=== PATIENT | female | born 1950 | race Caucasian/White ===

== ENCOUNTER 2017-06-01 10:01 | Emergency (ER) | payer OTHER ==
[~2017-06-01] VITALS: Ht 160 cm; Wt 70.7 kg
[~2017-06-01 10:01] MED LIST: ALBUAER19 INH; DPKEC250 PO; HYDR25TA4 PO; LAMO200T PO; [UNRECOGNIZED DRUG - CODE] PO
[2017-06-01 10:09] VITALS: TEMP 36.5; Ht 160 cm; Wt 70.7 kg
[2017-06-01] MEDS ORDERED: OXYCODONE HCL IR 5 MG TAB (IMMEDIATE RELEASE) PO STA (10:22)
--- NOTE | 2017-06-01 10:31 | EMERGENCY ROOM VISIT NOTE ---
ED Visit Note First contact with patient: 10:29 The patient was seen and examined with Elvia Plata PA-C. I agree with the history, physical and findings. Please see the note for disposition and details.
--- NOTE | 2017-06-01 11:09 | EMERGENCY ROOM VISIT NOTE ---
ED Visit Note First contact with patient: 10:13 CHIEF COMPLAINT: Right shoulder fracture HISTORY OF PRESENT ILLNESS: This 66-year-old female presents to the ER being sent here by Dasia bruno for a right shoulder fracture. The patient was sent here stating [facility] her [facility]. The patient states that they gave her a pierced reduction for pain medication. She also was placed in a sling. The patient denies any nose and tingling in her fingers. She admits to pain right over the shoulder joint. The patient states that she fell last evening when she tripped on her flip flop and landed onto her right shoulder. The patient denies any other injuries. The patient has seen Dr. Alvino grove in the past for other orthopedic needs. REVIEW OF SYSTEMS: 6 system review was performed and was negative unless stated otherwise in history of present illness. PMH: Tremor secondary to bipolar medication, fractured right ankle, femur surgery, lumpectomy of the right breast, bipolar disorder SOCIAL HISTORY: Patient lives with her . Non-smoker, no excessive alcohol use. PHYSICAL EXAM: Vital Signs: Were reviewed Reviewed nurse's notes. GENERAL: 66- year-old white female appears uncomfortable secondary to shoulder pain. She has her right arm in a sling. MENTAL Status: Alert and oriented 3. RIGHT shoulder: The shoulder is slightly swollen but not deformed on inspection. Range of motion was not assessed due to the known fracture. There is no tenderness of the distal clavicle. The patient is able to move her fingers without difficulty. Right radial pulses 2+. EMERGENCY DEPARTMENT COURSE: The patient was evaluated by myself and independently byDr. Gomes. The patient was given OxyIR 5 mg by mouth for pain. She is also given an ice pack. The x-ray was reviewed in the PACS system. This revealed an impacted fracture of the surgical neck. I consulted Dr. Ch about the patient. He stated, treatment with the sling and pain medications is adequate. He stated that she should call [facility] orthopedics on Saturday morning for follow-up appointment since she is already established with that practice. The patient was informed of treatment plan and was happy. The patient was discharged home in stable condition. DIAGNOSIS: Right Humeral fracture - surgical neck DISCHARGE INSTRUCTIONS & TREATMENT: Rest the arm in a shoulder immobilizer at all times until seeing the orthopedic surgeon. Apply ice to the shoulder intermittently and frequently over the next 24 hours. Take pain medication as prescribed by Dasia as directed. Call [facility] orthopedics on Saturday morning for follow-up appointment. Current/Historical Medications Scheduled Albuterol Inhaler (Ventolin Inhaler), 2 PUFFS INH Q6HR PRN Divalproex Sodium Delay Rel (Depakote Delay Rel *), 125 MG PO QPM Divalproex Sodium Delay Rel (Depakote Delay Rel *), 250 MG PO BID Hydrochlorothiazide (Hctz), 25 MG PO DAILY Lamotrigine (Lamictal), 200 MG PO BID Allergies Coded Allergies: No Known Allergies (Verified , 01/10/12) Vital Signs Date Time Temp Pulse Resp B/P (MAP) Pulse Ox O2 Delivery O2 Flow Rate FiO2 06/01/17 10:09 36.5 101 20 134/86 99 Room Air Medications Administered Medications (Trade) Dose Ordered Sig/Lavelle Route Start Time Stop Time Status Last Admin Dose Admin Oxycodone HCl (Roxicodone Immediate Rel Tab) 5 mg NOW STAT PO 06/01/17 10:22 06/01/17 10:24 DC 06/01/17 10:32 5 MG Departure Information Referrals Jake Nguyễn III, M.D. (PCP) Patient Instructions My [facility]
[2017-06-01 11:29] VITALS: BP 132/82; PULSE 78; O2SAT 98
== END 2017-06-01 11:30 | disposition home or self-care (01) ==
LOC: C.EDC 10:24
DX: S42.214A Unspecified nondisplaced fracture of surgical neck of right humerus, initial encounter for closed fracture (principal); F31.9 Bipolar disorder, unspecified; Z79.899 Other long term (current) drug therapy; Z87.828 Personal history of other (healed) physical injury and trauma; W01.0XXA Fall on same level from slipping, tripping and stumbling without subsequent striking against object, initial encounter

== ENCOUNTER 2022-10-11 10:54 | Inpatient (IN) ==
[2022-10-11] MEDS ORDERED: ALBUT/IPRATROP 3MG/0.5MG NEB 3 ML VIAL NEB STA (11:07)
--- NOTE | 2022-10-11 11:18 | XRay Report ---
XR chest 1V portable HISTORY: Dyspnea COMPARISON: Chest 01/12/2012. FINDINGS: No pneumothorax. No pleural effusions. The cardiac silhouette is normal in size. Small line ar scarlike density within the left midlung zone. Questionable nodular density within the right midlu ng zone is likely due to the overlapping ribs. No focal lung consolidations to suggest a pneumonia. N o evidence for pulmonary edema. Degenerative changes within the shoulders, right greater than left. O ld, healed right-sided rib fractures. IMPRESSION: 1. No acute process within the chest. 2. Questionable right midlung zone nodular density is likely due to the overlapping ribs. This will b e better assessed on the same day chest CTA. ACT 112: Negative or not required by law. Electronically signed by: Ulises Leigh M.D. 10/11/2022 11:17 AM
--- NOTE | 2022-10-11 11:25 | Emergency Department Note ---
Impression & Plan Bilateral pulmonary embolism, Elevated troponin, Hypoxia, Acute electrocardiogram changes ED Provider Note NAME: PETRONA KATZ AGE: 71 SEX: F : 1950 ARRIVES VIA: Ambulance INFORMANT: [Patient][nursing] ED PROVIDER(S): [Eder Sam MD] CHIEF COMPLAINT: Shortness of breath HISTORY OF PRESENT ILLNESS: The patient is a 71-year-old female who states that for 2 days, she has felt short of breath mostly with exertion but even sometimes at rest. The patient states that things started suddenly for her 2 days ago when she was walking. She did have a little bit of a cough this morning. There has been no fever, she has no lung disease and she no longer smokes, she quit smoking around 15 years ago. The patient denies any chest pain. No chills. She went to [facility] and there, was felt in need of transfer to the ED for further work-up. The patient has never had a PE or DVT. She has had phlebitis though in the past. No recent long trips by car plane or train, she has no cancer diagnosis. PMHx/PSHx: See Below SOCIAL HISTORY: See Below. PHYSICAL EXAM: GENERAL: Patient is in no acute distress. HEENT: No acute trauma, normocephalic atraumatic, mucous membranes moist, no nasal congestion. NECK: No stridor, no adenopathy, no meningismus, trachea is midline. LUNGS: Patient's breath sounds are diminished bilaterally. There are crackles in the lower lung mon[place] bilaterally, no wheezing. HEART: Without murmurs gallops or rubs, regular rate and rhythm. ABDOMEN: Soft, nontender, bowel sounds positive, no peritonitis. EXTREMITIES: No cyanosis or edema, full range of motion of all the joints without pain or difficulty, no signs for acute trauma. NEUROLOGIC: Oriented x 3, no acute motor or sensory deficits, no focal weakness. SKIN: No rash, no jaundice, no diaphoresis. DIFFERENTIAL DIAGNOSIS: PE, CHF, pneumonia, bronchitis, COVID-19, influenza, RSV, anemia, LA, among others. EMERGENCY DEPARTMENT COURSE/PROCEDURES: Prior/Outside records reviewed: Outside outpatient provider notes. ECG per my interpretation: Indication was shortness of breath. The ECG shows a normal sinus rhythm with a rate of 93. There are some T wave inversions in the lateral leads and some ST depression laterally. There is a potential old inferior infarct seen. I do see some subtle ST elevation in lead III however, this seemed secondary to a deep R wave. QTc was 492. No PVCs. Compared to an ECG from 11 January 2012, the T wave changes laterally are new. Continuous Cardiac Monitoring per my interpretation: An order was placed for continuous cardiac monitoring. The monitor shows a rate of 97 with normal sinus rhythm. Critical Care Note: I have personally spent 56 minutes of critical care time in the direct management of this patient. This includes bedside care, interpretation of diagnostic studies, and testing, discussion with consultants, patient, and family members, and other required patient management activities. This 56 minutes is in excess of all separately billable procedures. MEDICAL DECISION MAKING: There is no leukocytosis or concerning anemia. There is a normal platelet count. No coagulopathy. Potassium was slightly low at 3. Creatinine was elevated somewhat at 1.85. The patient does have a history of renal insufficiency. Lactic acid level was elevated at 2.5, likely from her hypoxia. There was no concerning liver enzyme elevation. ECG showed a normal sinus rhythm without ST elevation. Some T wave inversions and ST depression was seen. These ECG changes were new. Troponin was elevated at around 1000, consistent with cardiac injury/strain. BNP was elevated at around 900, consistent with potential fluid overload. Chest x-ray did not show CHF, pneumonia or pneumothorax per my review. COVID, influenza and RSV test were negative. Chest CT shows massive bilateral pulmonary emboli, no saddle embolus. Right ventricular strain was seen. The patient was able to maintain her O2 saturation on a large amount of supplemental O2, around 6 liters. She was given a 500 cc saline bolus. She received a DuoNeb. She received IV potassium. I did consult Dr. Amato of the intensive care unit. He saw the patient here and the patient was ordered for IV tPA given the extent of the pulmonary embolus. The patient is aware of her findings, her family is aware. She is going to require a hospital stay and further care. She will be admitted to the ICU. I did speak with case management, the on-call hospitalist was consulted. DISPOSITION: The patient's presentation and findings warrant a hospital stay. Past Med/Surg History Medical History Bipolar 1 disorder CKD (chronic kidney disease) stage 3, GFR 30-59 ml/min Dyslipidemia Hypertension Prediabetes Surgical History H/O bone graft femur fx with bone graft and pin, age 16 H/O breast biopsy 1988; benign History of partial hysterectomy History of tonsillectomy Family History (Updated 10/11/22 @ 14:08 by Mouna Hillman PA-C) Other Hypertension Ovarian cancer Pancreatic cancer Social History Smoking Status: Former smoker Tobacco Type: Cigarettes Smoking End Date: 2009; Hx Alcohol Use: No Hx Substance Use: No Preferred Language: [place]an Communication Ability: Effective Radio Equipment Repairer Required: No Beliefs That Will Affect Care: None Current Living Situation: Spouse Feels Safe at Home: Yes Safety Concerns: Feels Safe At This Time Assistive Devices: Glasses Allergies Allergies Allergy/AdvReac Type Severity Reaction Status Date / Time No Known Allergies Allergy Unknown Verified 10/11/22 11:32 Home Meds Home Medications Medication Instructions Recorded Confirmed buspirone 15 mg tablet 15 mg PO TID 10/11/22 10/11/22 carvedilol 6.25 mg tablet 6.25 mg PO BID 10/11/22 10/11/22 diphenhydramine 12.5 1 tab PO DAILY PRN Pain 10/11/22 10/11/22 mg-acetaminophen 325 mg tablet (Percogesic) indapamide 2.5 mg tablet 2.5 mg PO DAILY 10/11/22 10/11/22 rosuvastatin 10 mg tablet 10 mg PO DAILY 10/11/22 10/11/22 Results & Data (ED) Vital Signs Vital Signs - 24 hr 10/11/22 10:59 10/11/22 10:59 10/11/22 10:59 Temperature 36.9 C Temperature Source Oral Pulse Rate 93 H Pulse Rate [Apical] 93 H Pulse Rate from SpO2 Sensor Pulse Rhythm Regular Pulse Rhythm [Apical] Regular Pulse Strength Normal Pulse Strength [Apical] Normal Respiratory Rate 20 20 Respiratory Effort / Characteristics Non-Labored Non-Labored Respiratory Depth Normal Normal Respiratory Pattern Regular Regular Blood Pressure 113/84 Blood Pressure [Right Arm] 113/84 Blood Pressure Mean 93 Blood Pressure Mean [Right Arm] 93 Blood Pressure Position Sitting Pulse Oximetry 86 L 87 L 89 L Oxygen Delivery Method Nasal Cannula Nasal Cannula Nasal Cannula Oxygen Flow Rate 5 6 6 Sepsis Recent Fever Within 48 Hours No Sepsis New/Unexplained Change in Mental Status N/A Sepsis Action Taken by Nursing No Action Required 10/11/22 11:04 10/11/22 11:00 10/11/22 11:01 Temperature Temperature Source Pulse Rate 93 H 89 93 H Pulse Rate [Apical] Pulse Rate from SpO2 Sensor 93 H Pulse Rhythm Regular Pulse Rhythm [Apical] Pulse Strength Pulse Strength [Apical] Respiratory Rate 25 H Respiratory Effort / Characteristics Respiratory Depth Respiratory Pattern Blood Pressure Blood Pressure [Right Arm] Blood Pressure Mean Blood Pressure Mean [Right Arm] Blood Pressure Position Pulse Oximetry 89 L 89 L Oxygen Delivery Method Nasal Cannula Nasal Cannula Oxygen Flow Rate 6 6 Sepsis Recent Fever Within 48 Hours Sepsis New/Unexplained Change in Mental Status Sepsis Action Taken by Nursing 10/11/22 11:10 10/11/22 11:20 10/11/22 11:30 Temperature Temperature Source Pulse Rate 91 H 90 90 Pulse Rate [Apical] Pulse Rate from SpO2 Sensor 90 90 Pulse Rhythm Pulse Rhythm [Apical] Pulse Strength Pulse Strength [Apical] Respiratory Rate 20 18 23 Respiratory Effort / Characteristics Respiratory Depth Respiratory Pattern Blood Pressure Blood Pressure [Right Arm] Blood Pressure Mean Blood Pressure Mean [Right Arm] Blood Pressure Position Pulse Oximetry 89 L 90 Oxygen Delivery Method Nasal Cannula Nasal Cannula Oxygen Flow Rate 6 6 Sepsis Recent Fever Within 48 Hours Sepsis New/Unexplained Change in Mental Status Sepsis Action Taken by Nursing 10/11/22 11:40 10/11/22 11:50 10/11/22 12:00 Temperature Temperature Source Pulse Rate 91 H 89 88 Pulse Rate [Apical] Pulse Rate from SpO2 Sensor 91 H 89 88 Pulse Rhythm Pulse Rhythm [Apical] Pulse Strength Pulse Strength [Apical] Respiratory Rate 24 24 19 Respiratory Effort / Characteristics Respiratory Depth Respiratory Pattern Blood Pressure Blood Pressure [Right Arm] Blood Pressure Mean Blood Pressure Mean [Right Arm] Blood Pressure Position Pulse Oximetry 91 89 L 89 L Oxygen Delivery Method Oxygen Flow Rate Sepsis Recent Fever Within 48 Hours Sepsis New/Unexplained Change in Mental Status Sepsis Action Taken by Nursing 10/11/22 12:10 10/11/22 12:19 10/11/22 12:19 Temperature Temperature Source Pulse Rate 90 89 Pulse Rate [Apical] Pulse Rate from SpO2 Sensor 90 89 Pulse Rhythm Pulse Rhythm [Apical] Pulse Strength Pulse Strength [Apical] Respiratory Rate 21 24 Respiratory Effort / Characteristics Respiratory Depth Respiratory Pattern Blood Pressure 102/76 Blood Pressure [Right Arm] Blood Pressure Mean 84 Blood Pressure Mean [Right Arm] Blood Pressure Position Pulse Oximetry 91 91 Oxygen Delivery Method Oxygen Flow Rate Sepsis Recent Fever Within 48 Hours Sepsis New/Unexplained Change in Mental Status Sepsis Action Taken by Nursing 10/11/22 12:20 10/11/22 12:54 10/11/22 12:56 Temperature Temperature Source Pulse Rate 89 87 86 Pulse Rate [Apical] Pulse Rate from SpO2 Sensor 92 H 86 Pulse Rhythm Pulse Rhythm [Apical] Pulse Strength Pulse Strength [Apical] Respiratory Rate 23 22 Respiratory Effort / Characteristics Respiratory Depth Respiratory Pattern Blood Pressure Blood Pressure [Right Arm] Blood Pressure Mean Blood Pressure Mean [Right Arm] Blood Pressure Position Pulse Oximetry 88 L 90 Oxygen Delivery Method Oxygen Flow Rate Sepsis Recent Fever Within 48 Hours Sepsis New/Unexplained Change in Mental Status Sepsis Action Taken by Nursing 10/11/22 12:56 10/11/22 13:00 10/11/22 13:00 Temperature Temperature Source Pulse Rate 85 Pulse Rate [Apical] Pulse Rate from SpO2 Sensor 85 Pulse Rhythm Pulse Rhythm [Apical] Pulse Strength Pulse Strength [Apical] Respiratory Rate 24 Respiratory Effort / Characteristics Respiratory Depth Respiratory Pattern Blood Pressure 96/68 L 114/69 Blood Pressure [Right Arm] Blood Pressure Mean 77 84 Blood Pressure Mean [Right Arm] Blood Pressure Position Pulse Oximetry 91 Oxygen Delivery Method Oxygen Flow Rate Sepsis Recent Fever Within 48 Hours Sepsis New/Unexplained Change in Mental Status Sepsis Action Taken by Nursing 10/11/22 13:10 Temperature Temperature Source Pulse Rate 85 Pulse Rate [Apical] Pulse Rate from SpO2 Sensor 86 Pulse Rhythm Pulse Rhythm [Apical] Pulse Strength Pulse Strength [Apical] Respiratory Rate 22 Respiratory Effort / Characteristics Respiratory Depth Respiratory Pattern Blood Pressure Blood Pressure [Right Arm] Blood Pressure Mean Blood Pressure Mean [Right Arm] Blood Pressure Position Pulse Oximetry 92 Oxygen Delivery Method Oxygen Flow Rate Sepsis Recent Fever Within 48 Hours Sepsis New/Unexplained Change in Mental Status Sepsis Action Taken by Half-Way Medications Current Medication List: was personally reviewed by me Laboratory Data Attestation: I reviewed the patient's lab results. 10/11/22 16:30 10/11/22 16:30 Lab Results 10/11/22 10/11/22 10/11/22 Range/Units 11:19 11:19 11:19 WBC 9.29 (4.8-10.8) K/ul RBC 4.86 (4.20-5.40) M/uL Hgb 13.9 (12.0-16.0) g/dl Hct 42.6 (37.0-47.0) % MCV 87.7 (80.0-100.0) fL MCH 28.6 (25.0-34.0) pg MCHC 32.6 (32.0-36.0) g/dL RDW Std Deviation 53.5 H (36.4-46.3) fL RDW Coeff of Joanna 16.9 H (11.5-14.5) % Plt Count 306 (130-400) K/uL MPV 9.8 (9.4-12.4) fL Immature Gran % (Auto) 0.4 % Neut % (Auto) 72.4 % Lymph % (Auto) 17.3 % [place] % (Auto) 9.0 % Eos % (Auto) 0.3 % Baso % (Auto) 0.6 % Neut # (Auto) 6.71 H (1.40-6.50) K/uL Lymph # (Auto) 1.61 (1.2-3.4) K/uL [place] # (Auto) 0.84 H (0.11-0.59) K/uL Eos # (Auto) 0.03 (0-0.50) K/uL Baso # (Auto) 0.06 (0-0.2) K/uL Immature Gran # (Auto) 0.04 (0.01-0.20) K/uL Absolute Nucleated RBC 0.07 (0-0.12) K/uL Nucleated RBC % (auto) 0.8 % PT 11.7 (9.0-12.0) Seconds INR 1.1 (0.9-1.1) APTT 30.8 (21.0-31.0) Seconds PTT Ratio 1.1 Sodium 139 (136-145) mmol/L Potassium 3.0 L (3.5-5.1) mmol/L Chloride 103 (98-107) mmol/L Carbon Dioxide 25 (21-32) mmol/L Anion Gap 11 (3-11) BUN 30 H (6-23) mg/dl Creatinine 1.85 H (0.6-1.2) mg/dl Est Cr Clr Drug Dosing 29.2 ml/min Est GFR ( Amer) 31.2 ml/min Est GFR (Non-Af Amer) 26.9 ml/min BUN/Creatinine Ratio 16.2 (10-20) Glucose 118 H (70-99(Fasting)) mg/dl Lactate (0.4-2.0) mmol/L Calcium 9.9 (8.5-10.1) mg/dl Magnesium 2.0 (1.7-2.4) mg/dl Total Bilirubin 0.7 (0.2-1.0) mg/dl AST 18 (13-39) U/L ALT 12 (7-52) U/L Alkaline Phosphatase 94 (34-104) U/L Troponin I High Sens 1086.9 H* (0-14) pg/ml B-Natriuretic Peptide (0-100) pg/ml Total Protein 7.5 (6.0-8.3) gm/dl Albumin 4.4 (3.4-5.0) gm/dl Globulin 3.1 (2.5-4.0) gm/dl Albumin/Globulin Ratio 1.4 (0.9-2) SARS-CoV-2 (PCR) (Negative) Influenza Type A (PCR) (Neg) Influenza Type B (PCR) (Neg) RSV (RT-PCR) (Neg) 10/11/22 10/11/22 10/11/22 Range/Units 11:19 11:28 11:38 WBC (4.8-10.8) K/ul RBC (4.20-5.40) M/uL Hgb (12.0-16.0) g/dl Hct (37.0-47.0) % MCV (80.0-100.0) fL MCH (25.0-34.0) pg MCHC (32.0-36.0) g/dL RDW Std Deviation (36.4-46.3) fL RDW Coeff of Joanna (11.5-14.5) % Plt Count (130-400) K/uL MPV (9.4-12.4) fL Immature Gran % (Auto) % Neut % (Auto) % Lymph % (Auto) % [place] % (Auto) % Eos % (Auto) % Baso % (Auto) % Neut # (Auto) (1.40-6.50) K/uL Lymph # (Auto) (1.2-3.4) K/uL [place] # (Auto) (0.11-0.59) K/uL Eos # (Auto) (0-0.50) K/uL Baso # (Auto) (0-0.2) K/uL Immature Gran # (Auto) (0.01-0.20) K/uL Absolute Nucleated RBC (0-0.12) K/uL Nucleated RBC % (auto) % PT (9.0-12.0) Seconds INR (0.9-1.1) APTT (21.0-31.0) Seconds PTT Ratio Sodium (136-145) mmol/L Potassium (3.5-5.1) mmol/L Chloride (98-107) mmol/L Carbon Dioxide (21-32) mmol/L Anion Gap (3-11) BUN (6-23) mg/dl Creatinine (0.6-1.2) mg/dl Est Cr Clr Drug Dosing ml/min Est GFR ( Amer) ml/min Est GFR (Non-Af Amer) ml/min BUN/Creatinine Ratio (10-20) Glucose (70-99(Fasting)) mg/dl Lactate 2.5 H* (0.4-2.0) mmol/L Calcium (8.5-10.1) mg/dl Magnesium (1.7-2.4) mg/dl Total Bilirubin (0.2-1.0) mg/dl AST (13-39) U/L ALT (7-52) U/L Alkaline Phosphatase (34-104) U/L Troponin I High Sens (0-14) pg/ml B-Natriuretic Peptide 929 H (0-100) pg/ml Total Protein (6.0-8.3) gm/dl Albumin (3.4-5.0) gm/dl Globulin (2.5-4.0) gm/dl Albumin/Globulin Ratio (0.9-2) SARS-CoV-2 (PCR) NEGATIVE (Negative) Influenza Type A (PCR) Negative (Neg) Influenza Type B (PCR) Negative (Neg) RSV (RT-PCR) Negative (Neg) 10/11/22 Range/Units 13:08 WBC (4.8-10.8) K/ul RBC (4.20-5.40) M/uL Hgb (12.0-16.0) g/dl Hct (37.0-47.0) % MCV (80.0-100.0) fL MCH (25.0-34.0) pg MCHC (32.0-36.0) g/dL RDW Std Deviation (36.4-46.3) fL RDW Coeff of Joanna (11.5-14.5) % Plt Count (130-400) K/uL MPV (9.4-12.4) fL Immature Gran % (Auto) % Neut % (Auto) % Lymph % (Auto) % [place] % (Auto) % Eos % (Auto) % Baso % (Auto) % Neut # (Auto) (1.40-6.50) K/uL Lymph # (Auto) (1.2-3.4) K/uL [place] # (Auto) (0.11-0.59) K/uL Eos # (Auto) (0-0.50) K/uL Baso # (Auto) (0-0.2) K/uL Immature Gran # (Auto) (0.01-0.20) K/uL Absolute Nucleated RBC (0-0.12) K/uL Nucleated RBC % (auto) % PT (9.0-12.0) Seconds INR (0.9-1.1) APTT (21.0-31.0) Seconds PTT Ratio Sodium (136-145) mmol/L Potassium (3.5-5.1) mmol/L Chloride (98-107) mmol/L Carbon Dioxide (21-32) mmol/L Anion Gap (3-11) BUN (6-23) mg/dl Creatinine (0.6-1.2) mg/dl Est Cr Clr Drug Dosing ml/min Est GFR ( Amer) ml/min Est GFR (Non-Af Amer) ml/min BUN/Creatinine Ratio (10-20) Glucose (70-99(Fasting)) mg/dl Lactate 2.2 H* (0.4-2.0) mmol/L Calcium (8.5-10.1) mg/dl Magnesium (1.7-2.4) mg/dl Total Bilirubin (0.2-1.0) mg/dl AST (13-39) U/L ALT (7-52) U/L Alkaline Phosphatase (34-104) U/L Troponin I High Sens (0-14) pg/ml B-Natriuretic Peptide (0-100) pg/ml Total Protein (6.0-8.3) gm/dl Albumin (3.4-5.0) gm/dl Globulin (2.5-4.0) gm/dl Albumin/Globulin Ratio (0.9-2) SARS-CoV-2 (PCR) (Negative) Influenza Type A (PCR) (Neg) Influenza Type B (PCR) (Neg) RSV (RT-PCR) (Neg) Administered Medications Heparin Sodium/Dextrose (Heparin Sodium/Dextrose) 25,000 units in 500 mls @ 16 mls/hr IV .Q24H LIS; Protocol Stop: 11/10/22 18:44 Last Admin: 10/11/22 18:45 Dose: 800 units/hr, 16 mls/hr Documented By: SANDRA Co-signed By: SILVANO Miscellaneous (Icu Protocol For Hyperglycemia) 1 each N/A ACHS LIS Stop: 10/13/22 16:29 Last Admin: 10/11/22 17:36 Dose: Not Given Documented By: CB Discontinued Medications Albuterol (Albut/Ipratrop 3mg/0.5mg Neb 3 Ml Vial) 3 ml NEB NOW STA; Protocol Stop: 10/11/22 11:08 Last Admin: 10/11/22 11:23 Dose: 3 ml Documented By: CGK Sodium Chloride (Nss 1000ml) 500 mls @ 999 mls/hr IV .Q31M ONE Stop: 10/11/22 12:36 Last Infusion: 10/11/22 12:48 Dose: 0 mls/hr Documented By: Admin: 10/11/22 12:16 Dose: 999 mls/hr Documented By: CGK Potassium Chloride (K [place] / Wtr) 10 meq in 100 mls @ 100 mls/hr IV ONE ONE; P rotocol Stop: 10/11/22 13:05 Last Infusion: 10/11/22 14:11 Dose: 0 mls/hr Documented By: Admin: 10/11/22 12:55 Dose: 100 mls/hr Documented By: CGK Alteplase, Recombinant 50 mg/ (EMPTY BAG) 50 mls @ 25 mls/hr IV NOW STA; Protocol Stop: 10/11/22 15:19 Last Infusion: 10/11/22 16:00 Dose: 0 mls/hr Documented By: Admin: 10/11/22 13:57 Dose: 25 mls/hr Documented By: LISSETTEK Ioversol (Optiray 320 500ml) 104 ml IV ONCE ONE Stop: 10/11/22 12:48 Last Admin: 10/11/22 12:47 Dose: 104 ml Documented By: DOMINIQUE Miscellaneous (Pending Order) 1 each N/A Q1H LIS Stop: 11/10/22 16:59 Last Admin: 10/11/22 18:55 Dose: Not Given Documented By: Admin: 10/11/22 18:54 Dose: Not Given Documented By: SANDRA Pneumococcal Polyvalent Vaccine (Pneumococcal Polysaccharides 25 Mcg/0.5 Ml Vial/Syr) 25 mcg IM .ONCE ONE Stop: 10/11/22 16:48 Last Admin: 10/11/22 19:30 Dose: Not Given Documented By: ALIE Potassium Chloride (Potassium Chloride Crtab 20 Meq Tabcr) 60 meq PO NOW STA Stop: 10/11/22 17:41 Last Admin: 10/11/22 18:26 Dose: 60 meq Documented By: SANDRA Sodium Chloride (Sodium Chloride 0.9% 50 Ml Bag) 50 ml IV NOW STA Stop: 10/11/22 13:21 Last Admin: 10/11/22 15:03 Dose: 50 ml Documented By: LISSETTEK Imaging Data Radiologist's Impression: Chest X-Ray 10/11/22 11:00 XR chest 1V portable HISTORY: Dyspnea COMPARISON: Chest 01/12/2012. FINDINGS: No pneumothorax. No pleural effusions. The cardiac silhouette is normal in size. Small linear scarlike density within the left midlung zone. Questionable nodular density within the right midlung zone is likely due to the overlapping ribs. No focal lung consolidations to suggest a pneumonia. No evidence for pulmonary edema. Degenerative changes within the shoulders, right greater than left. Old, healed right-sided rib fractures. IMPRESSION: 1. No acute process within the chest. 2. Questionable right midlung zone nodular density is likely due to the overlapping ribs. This will be better assessed on the same day chest CTA. ACT 112: Negative or not required by law. Electronically signed by: Ulises Leigh M.D. 10/11/2022 11:17 AM Chest CTA 10/11/22 11:07 CHEST CTA for PULMONARY ARTERIES CT DOSE: 384.55 mGy.cm HISTORY: Shortness of breath. TECHNIQUE: Multiaxial CT images of the chest were performed following the intravenous administration of contrast to evaluate the pulmonary arteries. Maximal intensity projection images were also obtained. A dose lowering technique was utilized adhering to the principles of ALARA. COMPARISON STUDY: Chest 10/11/2022. FINDINGS: Normal caliber thoracic aorta with no evidence for a dissection. There is flattening of the interventricular septum with mild enlargement of the right ventricle consistent with right-sided heart strain. This is secondary to extensive bilateral pulmonary emboli which involves the distal bilateral main pulmonary arteries, lobar pulmonary arteries, and majority of the segmental arteries. No mediastinal or hilar lymphadenopathy. The heart is mildly enlarged. Trace pericardial effusion. No pleural effusions. Normal esophagus. Limited views of the upper abdomen demonstrate a 1.7 cm cyst within the right hepatic lobe and a normal spleen. The visualized adrenal glands are unremarkable. There are old, healed bilateral rib fractures. No suspicious lytic are blastic osseous lesions. Degenerative changes, avascular process, and mild collapse of the right humeral head. The central airways are patent. No pneumothorax. There are few scattered peripheral small densities within the lung bases most pronounced within the right lower lobe which measures 2.9 cm. These favor pulmonary infarcts. Small cluster of nodular densities within the superior segment of the right lower lobe with the largest on image 140 measuring 1 cm. There are few additional scattered tree-in-bud nodular airspace opacities within the right upper lobe posteriorly and within the left upper lobe anteriorly. These favor a mild infectious bronchiolitis. There is a 5 mm subpleural nodule on the right minor fissure on image 156. Small linear densities within the left mid to lower lung zone may represent scarring or subsegmental atelectasis. IMPRESSION: 1. Extensive bilateral pulmonary emboli as described above with associated righ t-sided heart strain. 2. Scattered peripheral densities within the lung bases most pronounced within the right lower lobe which favor pulmonary infarcts. 3. Small cluster of nodular densities within the superior segment of the right lower lobe with the largest measuring 1 cm. These are indeterminate and could represent small foci of inflammatory/infectious change. However, [address] follow-up recommended to ensure stability/resolution of the dominant 1 cm nodule. 4. Additional findings as described above. ACT 112: Negative or not required by law. Electronically signed by: Ulises Leigh M.D. 10/11/2022 1:08 PM Discharge Plan Visit Data Chief Complaint: Shortness of Breath/Dyspnea ED Provider: Eder Sam Discharge Problem: Bilateral pulmonary embolism, Elevated troponin, Hypoxia, Acute electrocardiogram changes Patient Disposition: Admitted As Inpatient Condition: Serious Discharge Instructions Interventions: ED Discharge Assessment Last Done: 10/11/22 15:14
[2022-10-11 11:58] LABS: Basophils # (auto) 0.06 K/uL (0-0.2); Basophils % (auto) 0.6 %; Eosinophils # (auto) 0.03 K/uL (0-0.50); Eosinophils % (auto) 0.3 %; Hematocrit (blood only) 42.6 % (37.0-47.0); Hemoglobin 13.9 g/dl (12.0-16.0); Immature Granulocytes # (auto) 0.04 K/uL (0.01-0.20); Immature Granulocytes % (auto) 0.4 %; Lymphocytes # (auto) 1.61 K/uL (1.2-3.4); Lymphocytes % (auto) 17.3 %; Mean Corpuscular Hemoglobin 28.6 pg (25.0-34.0); Mean Corpuscular Hgb Conc 32.6 g/dL (32.0-36.0); Mean Corpuscular Volume 87.7 fL (80.0-100.0); Mean Platelet Volume 9.8 fL (9.4-12.4); Monocytes # (auto) 0.84 K/uL (0.11-0.59); Neutrophils # (auto) 6.71 K/uL (1.40-6.50); Neutrophils % (auto) 72.4 %; Nucleated RBC # (auto) 0.07 K/uL (0-0.12); Nucleated RBC % (auto) 0.8 %; Platelet Count 306 K/uL (130-400); RDW Coefficient of Variation 16.9 % (11.5-14.5); RDW Standard Deviation 53.5 fL (36.4-46.3); Red Blood Count 4.86 M/uL (4.20-5.40); White Blood Count 9.29 K/ul (4.8-10.8)
[2022-10-11 12:03] LABS: Albumin Globulin Ratio 1.4 (0.9-2); Albumin Level 4.4 gm/dl (3.4-5.0); BUN Creatinine Ratio 16.2 (10-20); Bilirubin,Total 0.7 mg/dl (0.2-1.0); Calcium 9.9 mg/dl (8.5-10.1); Creatinine Clr Calc Pharmacy 29.2 ml/min; Est GFR (African American) 31.2 ml/min; Est GFR (Non-African American) 26.9 ml/min; Globulin 3.1 gm/dl (2.5-4.0); Total Protein 7.5 gm/dl (6.0-8.3)
[2022-10-11] MEDS ORDERED: SODIUM CHLORIDE 0.9% 1000ML 500 ML IV ONE (12:06)
[2022-10-11] MEDS ORDERED: POTASSIUM CHLORIDE / WTR 10 MEQ/100 ML PLCT IV ONE (12:06)
[2022-10-11 12:25] LABS: Troponin I High Sensitivity 1086.9 pg/ml (0-14)
[2022-10-11 12:28] LABS: Influenza A virus by PCR Negative (Neg); Influenza B virus by PCR Negative (Neg); RSV by PCR Negative (Neg); SARS CoV2 RNA(COVID-19) Ceph NEGATIVE (Negative)
[2022-10-11 12:41] LABS: INR 1.1 (0.9-1.1); Partial Thromboplastin Ratio 1.1; Partial Thromboplastin Time 30.8 Seconds (21.0-31.0); Prothrombin Time 11.7 Seconds (9.0-12.0)
[2022-10-11] MEDS ORDERED: OPTIRAY 320 500ml IV ONE (12:47)
--- NOTE | 2022-10-11 13:09 | CT Scan Report ---
CHEST CTA for PULMONARY ARTERIES CT DOSE: 384.55 mGy.cm HISTORY: Shortness of breath. TECHNIQUE: Multiaxial CT images of the chest were performed following the intravenous administration of contrast to evaluate the pulmonary arteries. Maximal intensity projection images were also obtaine d. A dose lowering technique was utilized adhering to the principles of ALARA. COMPARISON STUDY: Chest 10/11/2022. FINDINGS: Normal caliber thoracic aorta with no evidence for a dissection. There is flattening of the interventricular septum with mild enlargement of the right ventricle consistent with right-sided hea rt strain. This is secondary to extensive bilateral pulmonary emboli which involves the distal bilate ral main pulmonary arteries, lobar pulmonary arteries, and majority of the segmental arteries. No med iastinal or hilar lymphadenopathy. The heart is mildly enlarged. Trace pericardial effusion. No pleur al effusions. Normal esophagus. Limited views of the upper abdomen demonstrate a 1.7 cm cyst within t he right hepatic lobe and a normal spleen. The visualized adrenal glands are unremarkable. There are old, healed bilateral rib fractures. No suspicious lytic are blastic osseous lesions. Degenerative ch anges, avascular process, and mild collapse of the right humeral head. The central airways are patent . No pneumothorax. There are few scattered peripheral small densities within the lung bases most pron ounced within the right lower lobe which measures 2.9 cm. These favor pulmonary infarcts. Small clust er of nodular densities within the superior segment of the right lower lobe with the largest on image 140 measuring 1 cm. There are few additional scattered tree-in-bud nodular airspace opacities within the right upper lobe posteriorly and within the left upper lobe anteriorly. These favor a mild infec tious bronchiolitis. There is a 5 mm subpleural nodule on the right minor fissure on image 156. Small linear densities within the left mid to lower lung zone may represent scarring or subsegmental atele ctasis. IMPRESSION: 1. Extensive bilateral pulmonary emboli as described above with associated right-sided heart strain. 2. Scattered peripheral densities within the lung bases most pronounced within the right lower lobe w hich favor pulmonary infarcts. 3. Small cluster of nodular densities within the superior segment of the right lower lobe with the la rgest measuring 1 cm. These are indeterminate and could represent small foci of inflammatory/infectio us change. However, [address] follow-up recommended to ensure stability/resolution of the jennifer nant 1 cm nodule. 4. Additional findings as described above. ACT 112: Negative or not required by law. Electronically signed by: Ulises Leigh M.D. 10/11/2022 1:08 PM
[2022-10-11] MEDS ORDERED: DC ALL ANTICOAGULANTS STA (13:20)
[2022-10-11] MEDS ORDERED: SODIUM CHLORIDE 0.9% 50 ML BAG IV STA (13:20)
[2022-10-11] MEDS ORDERED: Heparin IV Adult Wt-Based Low-Dose *NO* Bolus Protocol IV ONE (13:20)
[2022-10-11] MEDS ORDERED: ALTEPLASE, RECOMBINANT 50 MG in EMPTY BAG 0 ML IV STA (13:20)
[2022-10-11] MEDS ORDERED: PRIMARY PLUMSET, PE LINED TUBING, 113 IN, NON-DEHP (2260-0500) IV STA (13:20)
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
--- NOTE | 2022-10-11 13:28 | History & Physical Report ---
Date of Service October 11, 2022 Assessment & Plan (1) Acute respiratory failure with hypoxia: (2) Bilateral pulmonary embolism: (3) Troponin level elevated: Plan: This is a 71-year-old female with PMH of hypertension, CKD 3, bipolar disorder, dyslipidemia, prediabetes, hyponatremia and other medical problems listed below who presents with shortness of breath for the past 2 days and was found to have extensive bilateral PEs with associated right heart strain and hypoxic respiratory failure. Progressive shortness of breath x 2 days, oxygen saturation of 86% on room air, improved to 94% on 6 L nasal cannula Afebrile, no leukocytosis, lactate 2.2, initial troponin 1,087 Chest CTA extensive bilateral pulmonary emboli as described above with associated right-sided heart strain, scattered peripheral densities within the lung bases most pronounced within the right lower lobe which favor pulmonary infarcts Evaluated by Dr. Amato, and was given half dose tPA followed by heparin infusion Patient to be managed in ICU Echocardiogram, trend troponin No known hypercoagulability, no recent surgery or immobilization. No edema or pain of BLE consistent with DVT. + Fam hx of ovarian and pancreatic cancer Wound benefit from further work up with CT a/p, cancer markers, hypercoag panel (4) Hypertension: Plan: Normotensive. Home regimen includes indapamide, carvedilil (5) Hypokalemia: Plan: Initial K of 3.0, replacing. Monitor with daily BMP (6) CKD (chronic kidney disease) stage 3, GFR 30-59 ml/min: Plan: Cr 1.85 (baseline ~ 1.4) - FLORENTIN superimposed on CKD. Plan to hold indapamide, repeat BMP (7) Bipolar 1 disorder: Plan: ?Anxiety vs bipolar present in outpatient chart. Continue Buspar TID (8) Dyslipidemia: Plan: Continue statin (9) Prediabetes: Plan: BSG ACHS, add SSI if indicated Pulm nodules Noted on CTA chest. [address] follow-up recommended to ensure stability/resolution of the dominant 1 cm nodule DVT Ppx: tpa, IV heparin Code status: FULL PCP: Delma Dispo: Admitted to ICU Patient seen in collaboration with Dr. Hagen. Please see addendum. A total of 75 minutes were spent with greater than 50% of that time face to face with the patient, personally reviewing all current laboratories, imaging studies, past medication reconciliation, outpatient chart review, and discussion with specialists to collaborate care for the patient with attending and utilization of translation services. Please see attending documentation for corrections and/or additions. History of Present Illness Chief Complaint: Shortness of breath Primary Care Provider: Jake Nguyễn MD This is a 71-year-old female with PMH of hypertension, CKD 3, bipolar disorder, dyslipidemia, prediabetes, hyponatremia and other medical problems listed below who presents with shortness of breath for the past 2 days. First noticed it 2 days ago when she was walking but is has worsened to the point that she was short of breath when getting up to use the restroom. Went to see PCP in clinic and was directed to ED for further evaluation. Denies history of recent long car or plane travel, no cancer history, or former DVT/PE personally but both mom and sister have had them. Fam h/o ovarian and pancreatic cancer. Not aware of any precipitating cause. Patient also with remote history of lumpectomy many years ago when her children were infants. Denies any fever or chills. No lightheadedness, visual changes, chest pain, wheezing, nausea, vomiting, abdominal pain, dysuria, diarrhea or constipation. No calf pain or swelling. No lung disease but former smoker who quit in 2009. Allergies Allergy/AdvReac Type Severity Reaction Status Date / Time No Known Allergies Allergy Unknown Verified 10/11/22 11:32 Home Medications Medication Instructions Recorded Confirmed Type buspirone 15 mg tablet 15 mg PO TID 10/11/22 10/11/22 History carvedilol 6.25 mg tablet 6.25 mg PO BID 10/11/22 10/11/22 History diphenhydramine 12.5 1 tab PO DAILY PRN Pain 10/11/22 10/11/22 History mg-acetaminophen 325 mg tablet (Percogesic) indapamide 2.5 mg tablet 2.5 mg PO DAILY 10/11/22 10/11/22 History rosuvastatin 10 mg tablet 10 mg PO DAILY 10/11/22 10/11/22 History Past Med/Surg History Medical History (Updated 10/11/22 @ 14:24 by Mouna Hillman PA-C) Bipolar 1 disorder CKD (chronic kidney disease) stage 3, GFR 30-59 ml/min Dyslipidemia Hypertension Prediabetes Surgical History H/O bone graft femur fx with bone graft and pin, age 16 H/O breast biopsy 1988; benign History of partial hysterectomy History of tonsillectomy Family History (Updated 10/11/22 @ 14:08 by Mouna Hillman PA-C) Other Hypertension Ovarian cancer Pancreatic cancer Social History Smoking Status: Former smoker Tobacco Type: Cigarettes Smoking End Date: 2009; Hx Alcohol Use: No Hx Substance Use: No Preferred Language: German Communication Ability: Effective Territory Business Manager Required: No Beliefs That Will Affect Care: None Current Living Situation: Spouse Feels Safe at Home: Yes Safety Concerns: Feels Safe At This Time Assistive Devices: Glasses Review of Systems Review of Systems: At least ten systems reviewed and negative except as noted in the HPI. Physical Exam Physical Exam: General Appearance: WD/WN, vitals as above, NAD, sitting up in bed, pleasant, conversing easily, on 6L NC O2 Head: normocephalic, atraumatic Eyes: normal inspection, PERRL, conjunctivae normal, anicteric sclerae ENT: external ear and nose normal, oropharynx normal Neck: normal visual inspection, trachea midline, no thyromegaly Respiratory: normal respiratory effort, lungs clear to auscultation, no wheeze, rales, rhonchi. No accessory muscle use Cardiovascular: regular rate, rhythm, no murmur, normal peripheral pulses, no BLE edema. Vessels: no JVD Chest: normal inspection of chest Abdomen/GI: normal bowel sounds, soft, nontender, no hepatosplenomegaly Extremities/Musculoskeletal: no cyanosis or clubbing, extremities motor st rength 5/5. No calf pain or discoloration of BLE Neurologic: PERRL, EOMI, accommodation nl, no face palsy, no dysarthria, CN's II-XI intact bilaterally and moves all extremities Psychiatric: A+Ox3, euthymic affect Skin: no rashes, normal color, warm/dry Results & Data Results & Data ([facility]) Vital Signs (Past 12 Hours) Vital Signs Temp Pulse Pulse Resp BP BP Pulse Ox 10/11/22 13:10 85 22 92 10/11/22 13:00 85 24 91 10/11/22 13:00 114/69 10/11/22 12:56 96/68 L 10/11/22 12:56 86 22 90 10/11/22 12:54 87 10/11/22 12:20 89 23 88 L 10/11/22 12:19 102/76 10/11/22 12:19 89 24 91 10/11/22 12:10 90 21 91 10/11/22 12:00 88 19 89 L 10/11/22 11:50 89 24 89 L 10/11/22 11:40 91 H 24 91 10/11/22 11:30 90 23 90 10/11/22 11:20 90 18 89 L 10/11/22 11:10 91 H 20 10/11/22 11:01 93 H 25 H 89 L 10/11/22 11:00 89 89 L 10/11/22 11:04 93 H 10/11/22 10:59 89 L 10/11/22 10:59 93 H 20 113/84 87 L 10/11/22 10:59 36.9 C 93 H 20 113/84 86 L O2 Del Method O2 Flow Rate 10/11/22 13:10 10/11/22 13:00 10/11/22 13:00 10/11/22 12:56 10/11/22 12:56 10/11/22 12:54 10/11/22 12:20 10/11/22 12:19 10/11/22 12:19 10/11/22 12:10 10/11/22 12:00 10/11/22 11:50 10/11/22 11:40 10/11/22 11:30 Nasal Cannula 6 10/11/22 11:20 Nasal Cannula 6 10/11/22 11:10 10/11/22 11:01 Nasal Cannula 6 10/11/22 11:00 Nasal Cannula 6 10/11/22 11:04 10/11/22 10:59 Nasal Cannula 6 10/11/22 10:59 Nasal Cannula 6 10/11/22 10:59 Nasal Cannula 5 Laboratory Results Short CBC 10/11/22 Range/Units 11:19 WBC 9.29 (4.8-10.8) K/ul Hgb 13.9 (12.0-16.0) g/dl Hct 42.6 (37.0-47.0) % Plt Count 306 (130-400) K/uL BMP 10/11/22 11:19 Sodium 139 Potassium 3.0 L Chloride 103 Carbon Dioxide 25 BUN 30 H Creatinine 1.85 H Glucose 118 H Calcium 9.9 Liver Function 10/11/22 Range/Units 11:19 Total Bilirubin 0.7 (0.2-1.0) mg/dl AST 18 (13-39) U/L ALT 12 (7-52) U/L Alkaline Phosphatase 94 (34-104) U/L Albumin 4.4 (3.4-5.0) gm/dl Diagnostic Findings Chest X-Ray 10/11/22 11:00 XR chest 1V portable HISTORY: Dyspnea COMPARISON: Chest 01/12/2012. FINDINGS: No pneumothorax. No pleural effusions. The cardiac silhouette is normal in size. Small linear scarlike density within the left midlung zone. Questionable nodular density within the right midlung zone is likely due to the overlapping ribs. No focal lung consolidations to suggest a pneumonia. No evidence for pulmonary edema. Degenerative changes within the shoulders, right greater than left. Old, healed right-sided rib fractures. IMPRESSION: 1. No acute process within the chest. 2. Questionable right midlung zone nodular density is likely due to the overlapping ribs. This will be better assessed on the same day chest CTA. ACT 112: Negative or not required by law. Electronically signed by: Ulises Leigh M.D. 10/11/2022 11:17 AM Chest CTA 10/11/22 11:07 CHEST CTA for PULMONARY ARTERIES CT DOSE: 384.55 mGy.cm HISTORY: Shortness of breath. TECHNIQUE: Multiaxial CT images of the chest were performed following the intravenous administration of contrast to evaluate the pulmonary arteries. Maximal intensity projection images were also obtained. A dose lowering technique was utilized adhering to the principles of ALARA. COMPARISON STUDY: Chest 10/11/2022. FINDINGS: Normal caliber thoracic aorta with no evidence for a dissection. There is flattening of the interventricular septum with mild enlargement of the right ventricle consistent with right-sided heart strain. This is secondary to extensive bilateral pulmonary emboli which involves the distal bilateral main pulmonary arteries, lobar pulmonary arteries, and majority of the segmental arteries. No mediastinal or hilar lymphadenopathy. The heart is mildly enlarged. Trace pericardial effusion. No pleural effusions. Normal esophagus. Limited views of the upper abdomen demonstrate a 1.7 cm cyst within the right hepatic lobe and a normal spleen. The visualized adrenal glands are unremarkable. There are old, healed bilateral rib fractures. No suspicious lytic are blastic osseous lesions. Degenerative changes, avascular process, and mild collapse of the right humeral head. The central airways are patent. No pneumothorax. There are few scattered peripheral small densities within the lung bases most pronounced within the right lower lobe which measures 2.9 cm. These favor pulmonary infarcts. Small cluster of nodular densities within the superior segment of the right lower lobe with the largest on image 140 measuring 1 cm. There are few additional scattered tree-in-bud nodular airspace opacities within the right upper lobe posteriorly and within the left upper lobe anteriorly. These favor a mild infectious bronchiolitis. There is a 5 mm subpleural nodule on the right minor fissure on image 156. Small linear densities within the left mid to lower lung zone may represent scarring or subsegmental atelectasis. IMPRESSION: 1. Extensive bilateral pulmonary emboli as described above with associated right-sided heart strain. 2. Scattered peripheral densities within the lung bases most pronounced within the right lower lobe which favor pulmonary infarcts. 3. Small cluster of nodular densities within the superior segment of the right lower lobe with the largest measuring 1 cm. These are indeterminate and could represent small foci of inflammatory/infectious change. However, [address] follow-up recommended to ensure stability/resolution of the dominant 1 cm nodule. 4. Additional findings as described above. ACT 112: Negative or not required by law. Electronically signed by: Ulises Leigh M.D. 10/11/2022 1:08 PM ECG Additional Comments: Independently reviewed with normal sinus rhythm, possible left atrial enlar gement, ST depression noted in lateral leads Code Status & VTE Plan VTE Prophylaxis Plan VTE Prophylaxis will be ordered: Yes Supervising Physician Co-Signing Physician Notes Patient was seen and examined independently. Chart reviewed. Case discussed with MOE Here with submassive PE with right heart strain and hypoxia. Management per Regional Project Manager with half dose tpa then heparin infusion Patient with family history of VTE (mother and sister) but no personal history. No recent immobilization. PE is unprovoked. Will need hypercoagulable workup (OP f/u with hematology), will need follow up with her PCP for routine age appropriate cancer screening (mammogram, colonoscopy, CT chest, etc)
[2022-10-11] MEDS ORDERED: PNEUMOCOCCAL POLYSACCHARIDES 25 MCG/0.5 ML VIAL/SYR IM ONE (16:47)
[2022-10-11 17:00] LABS: Appearance Urine Clear (Clear); Bilirubin Urine Negative (Negative); Blood Urine 2+ (Negative); Color Urine Yellow; Epithelial Cell Urine Auto >30 /lpf (0-5); Glucose Urine UA Negative (Negative); Ketones Urine Negative (Negative); Leukocyte Esterase Urine Trace (Negative); Nitrite Urine Negative (Negative); Protein Urine 1+ (Negative); Specific Gravity Urine > 1.045 (1.000-1.030); Urobilinogen Urine Negative (Negative)
[2022-10-11 17:06] LABS: Hemoglobin 12.9 g/dl (12.0-16.0); Mean Corpuscular Hemoglobin 28.8 pg (25.0-34.0); Mean Corpuscular Hgb Conc 32.3 g/dL (32.0-36.0); Mean Corpuscular Volume 89.3 fL (80.0-100.0); Mean Platelet Volume 9.4 fL (9.4-12.4); Nucleated RBC # (auto) 0.07 K/uL (0-0.12); Nucleated RBC % (auto) 0.9 %; Platelet Count 253 K/uL (130-400); RDW Coefficient of Variation 16.8 % (11.5-14.5); RDW Standard Deviation 54.2 fL (36.4-46.3); Red Blood Count 4.48 M/uL (4.20-5.40); White Blood Count 8.11 K/ul (4.8-10.8)
[2022-10-11 17:22] LABS: Bacteria Urine Automated 1+ (Negative); Mucus Urine Present (None Prsent)
[2022-10-11 17:25] LABS: BUN Creatinine Ratio 17.8 (10-20); Calcium 9.2 mg/dl (8.5-10.1); Creatinine Clr Calc Pharmacy 32.8 ml/min; Est GFR (African American) 36.4 ml/min; Est GFR (Non-African American) 31.4 ml/min; Potassium 3.1 mmol/L (3.5-5.1)
[2022-10-11 17:35] LABS: Partial Thromboplastin Ratio 1.1
[2022-10-11] MEDS: ICU Protocol for HYPERglycemia SCH ×2 (17:36→20:13)
[2022-10-11] MEDS ORDERED: POTASSIUM CHLORIDE CRTAB 20 MEQ TABCR PO STA (17:40)
[2022-10-11 18:35] LABS: Partial Thromboplastin Ratio 1.1; Partial Thromboplastin Time 31.5 Seconds (21.0-31.0)
[2022-10-11] MEDS: HEPARIN SODIUM/DEXTROSE 25,000 UNITS/500 ML BAG IV SCH (18:45)
[2022-10-11] MEDS: carvediloL 6.25 MG TAB PO SCH (20:11)
[2022-10-11] MEDS: busPIRone 15 MG TAB PO SCH (20:11)
[2022-10-12 02:50] LABS: Basophils # (auto) 0.05 K/uL (0-0.2); Basophils % (auto) 0.7 %; Eosinophils # (auto) 0.14 K/uL (0-0.50); Hematocrit (blood only) 36.5 % (37.0-47.0); Immature Granulocytes # (auto) 0.02 K/uL (0.01-0.20); Immature Granulocytes % (auto) 0.3 %; Lymphocytes # (auto) 2.03 K/uL (1.2-3.4); Lymphocytes % (auto) 28.4 %; Mean Corpuscular Hemoglobin 28.4 pg (25.0-34.0); Mean Corpuscular Hgb Conc 32.9 g/dL (32.0-36.0); Mean Corpuscular Volume 86.3 fL (80.0-100.0); Mean Platelet Volume 9.8 fL (9.4-12.4); Monocytes # (auto) 0.69 K/uL (0.11-0.59); Monocytes % (auto) 9.7 %; Neutrophils # (auto) 4.21 K/uL (1.40-6.50); Neutrophils % (auto) 58.9 %; Nucleated RBC # (auto) 0.07 K/uL (0-0.12); Platelet Count 253 K/uL (130-400); RDW Coefficient of Variation 16.6 % (11.5-14.5); RDW Standard Deviation 51.8 fL (36.4-46.3); Red Blood Count 4.23 M/uL (4.20-5.40); White Blood Count 7.14 K/ul (4.8-10.8)
[2022-10-12 03:01] LABS: BUN Creatinine Ratio 18.4 (10-20); Calcium 8.8 mg/dl (8.5-10.1); Creatinine Clr Calc Pharmacy 33.9 ml/min; Est GFR (African American) 37.8 ml/min; Est GFR (Non-African American) 32.6 ml/min; Magnesium 1.8 mg/dl (1.7-2.4); Phosphorus 1.7 mg/dl (2.5-4.9); Potassium 3.3 mmol/L (3.5-5.1)
[2022-10-12] MEDS ORDERED: POTASSIUM CHLORIDE CRTAB 20 MEQ TABCR PO STA (03:14)
[2022-10-12 03:15] LABS: Partial Thromboplastin Ratio 1.5; Partial Thromboplastin Time 41.1 Seconds (21.0-31.0)
[2022-10-12] MEDS ORDERED: SODIUM PHOSPHATE 3 MMOL/1 ML INFUSION IV STA (03:16)
[2022-10-12 03:38] LABS: Troponin I High Sensitivity 627.6 pg/ml (0-14)
[2022-10-12] MEDS: MAGNESIUM SULFATE / D5W 1 GM/100 ML BAG IV SCH ×2 (03:43→05:30)
[2022-10-12] MEDS ORDERED: SODIUM PHOSPHATE 18 MMOL in SODIUM CHLORIDE 0.9% 500 ML IV ONE (04:00)
--- NOTE | 2022-10-12 05:24 | Electrocardiogram Report ---
Test Reason : Blood Pressure : / mmHG Vent. Rate : 093 BPM Atrial Rate : 093 BPM P-R Int : 154 ms QRS Dur : 092 ms QT Int : 396 ms P-R-T Axes : 071 006 125 degrees QTc Int : 492 ms Normal sinus rhythm Possible Left atrial enlargement Inferior infarct , age undetermined Prolonged QT Abnormal ECG When compared with ECG of 11-JAN-2012 07:18, Inferior infarct is now Present ST now depressed in Lateral leads T wave inversion now evident in Lateral leads QT has lengthened Confirmed by Tyrell Gee ([id number]) on 10/12/2022 5:23:41 AM Referred By: REFERRED SELF Confirmed By:Tyrell Gee
[2022-10-12] MEDS: ICU Protocol for HYPERglycemia SCH ×3 (07:43→16:35)
[2022-10-12] MEDS: ROSUVASTATIN CALCIUM 10 MG TAB PO SCH (08:44)
[2022-10-12] MEDS: busPIRone 15 MG TAB PO SCH ×3 (08:44→20:47)
[2022-10-12] MEDS: carvediloL 6.25 MG TAB PO SCH ×2 (08:45→20:47)
--- NOTE | 2022-10-12 09:44 | Critical Care Progress Note ---
Date of Service October 12, 2022 Assessment & Plan (1) Cor pulmonale, acute: (2) Bilateral pulmonary embolism: (3) Hypoxia: (4) Troponin level elevated: Plan Reason Critically Ill: 71-year-old female with submassive pulmonary emboli with evidence of heart strain PLAN: Resp: 25-year smoking pack history quit 14 years ago CV: Hypertension: Medication controlled Acute cor pulmonale secondary to Acute bilateral pulmonary emboli -Half dose tPA to be administered followed by a heparin infusion -Currently on heparin will transition to oral anticoagulation deferring decision to hospitalist team. Patient has renal insufficiency which may impact long-term choices Fluids/Renal: Chronic renal insufficiency -Followed by [facility] -Patient unclear of exact etiology GI/Nutrition: Hyperlipidemia -Continue 10 mg Rosuvastatin Heme: Venous thromboembolism -Concerning family history DVT prophylaxis: tPA followed by heparin Endocrine: ICU hyperglycemia protocol Vascular access: Peripheral IVs Code Status: Full code Disposition: Stable for downgrade out of ICU Admission and Anticipated Discharge Date Admission Date: October 11, 2022 Subjective Feels improved significantly from yesterday, no significant chest pain Physical Exam Physical Exam: General: Alert. nontoxic. Skin: Warm, dry, Head: Atraumatic Ears, nose, mouth and throat: airway patent Cardiovascular: Normal peripheral perfusion Respiratory: no respiratory distress Gastrointestinal: Non distended Musculoskeletal: No deformity Results & Data Results & Data ([facility]) Vital Signs (Past 12 Hours) Vital Signs Temp Pulse Pulse Resp BP Pulse Ox O2 Del Method 10/12/22 07:57 36.9 C 79 20 121/61 95 Nasal Cannula 10/12/22 07:36 Nasal Cannula 10/12/22 06:57 18 107/71 94 Nasal Cannula 10/12/22 05:57 36.6 C 82 16 107/71 94 Nasal Cannula 10/12/22 04:57 36.7 C 80 16 135/81 95 Nasal Cannula 10/12/22 03:57 36.7 C 78 16 100/68 96 Nasal Cannula 10/12/22 02:57 36.6 C 79 16 131/65 94 Nasal Cannula 10/12/22 01:57 36.6 C 81 16 115/79 94 Nasal Cannula 10/12/22 00:57 36.7 C 80 16 106/66 93 Nasal Cannula 10/12/22 00:23 78 10/11/22 23:57 36.6 C 77 16 102/64 95 Nasal Cannula 10/11/22 22:57 36.6 C 81 16 103/68 94 Nasal Cannula 10/11/22 22:27 36.6 C 81 16 110/67 95 Nasal Cannula 10/11/22 21:57 36.6 C 80 16 110/63 95 Nasal Cannula O2 Flow Rate 10/12/22 07:57 2 10/12/22 07:36 2 10/12/22 06:57 3 10/12/22 05:57 3 10/12/22 04:57 3 10/12/22 03:57 3 10/12/22 02:57 3 10/12/22 01:57 3 10/12/22 00:57 3 10/12/22 00:23 10/11/22 23:57 3 10/11/22 22:57 3 10/11/22 22:27 3 10/11/22 21:57 3 Critical Care Results & Data Vital Signs (Past 12 Hours) Vital Signs Temp Pulse Pulse Resp BP Pulse Ox O2 Del Method 10/12/22 07:57 36.9 C 79 20 121/61 95 Nasal Cannula 10/12/22 07:36 Nasal Cannula 10/12/22 06:57 18 107/71 94 Nasal Cannula 10/12/22 05:57 36.6 C 82 16 107/71 94 Nasal Cannula 10/12/22 04:57 36.7 C 80 16 135/81 95 Nasal Cannula 10/12/22 03:57 36.7 C 78 16 100/68 96 Nasal Cannula 10/12/22 02:57 36.6 C 79 16 131/65 94 Nasal Cannula 10/12/22 01:57 36.6 C 81 16 115/79 94 Nasal Cannula 10/12/22 00:57 36.7 C 80 16 106/66 93 Nasal Cannula 10/12/22 00:23 78 10/11/22 23:57 36.6 C 77 16 102/64 95 Nasal Cannula 10/11/22 22:57 36.6 C 81 16 103/68 94 Nasal Cannula 10/11/22 22:27 36.6 C 81 16 110/67 95 Nasal Cannula O2 Flow Rate 10/12/22 07:57 2 10/12/22 07:36 2 10/12/22 06:57 3 10/12/22 05:57 3 10/12/22 04:57 3 10/12/22 03:57 3 10/12/22 02:57 3 10/12/22 01:57 3 10/12/22 00:57 3 10/12/22 00:23 10/11/22 23:57 3 10/11/22 22:57 3 10/11/22 22:27 3 Lab & Micro Results (Past 24 Hours) RBC 4.23 M/uL (4.20-5.40) 10/12/22 WBC 7.14 K/ul (4.8-10.8) 10/12/22 Hgb 12.0 g/dl (12.0-16.0) 10/12/22 Hct 36.5 % (37.0-47.0) L 10/12/22 MCV 86.3 fL (80.0-100.0) 10/12/22 MCH 28.4 pg (25.0-34.0) 10/12/22 MCHC 32.9 g/dL (32.0-36.0) 10/12/22 RDW Standard Deviation 51.8 fL (36.4-46.3) H 10/12/22 RDW Coefficient of Variation 16.6 % (11.5-14.5) H 10/12/22 Plt Count 253 K/uL (130-400) 10/12/22 MPV 9.8 fL (9.4-12.4) 10/12/22 Nucleated Red Blood Cells % (auto) 1.0 % 10/12 Nucleated RBC Absolute Count (auto) 0.07 K/uL (0-0.12) 11/01 Neutrophils (%) (Auto) 58.9 % 10/12/22 Lymphocytes (%) (Auto) 28.4 % 10/12/22 Monocytes # (Auto) 0.69 K/uL (0.11-0.59) H 10/12/22 Eosinophils # (Auto) 0.14 K/uL (0-0.50) 10/12/22 Immature Granulocyte % (Auto) 0.3 % 10/12/22 Neutrophils # (Auto) 4.21 K/uL (1.40-6.50) 10/12/22 Lymphocytes # (Auto) 2.03 K/uL (1.2-3.4) 10/12/22 Monocytes # (Auto) 0.69 K/uL (0.11-0.59) H 10/12/22 Eosinophils # (Auto) 0.14 K/uL (0-0.50) 10/12/22 Basophils # (Auto) 0.05 K/uL (0-0.2) 10/12/22 Immature Granulocyte # (Auto) 0.02 K/uL (0.01-0.20) 3 Na 139 mmol/L (136-145) 10/12/22 K 3.3 mmol/L (3.5-5.1) L 10/12/22 Cl 107 mmol/L (98-107) 10/12/22 CO2 24 mmol/L (21-32) 10/12/22 Anion Gap 8 (3-11) 10/12/22 BUN 29 mg/dl (6-23) H 10/12/22 Creatinine 1.58 mg/dl (0.6-1.2) H 10/12/22 Estimated GFR ( Amer) 37.8 ml/min 10/12/22 Estimated GFR (Non-Af Amer) 32.6 ml/min 10/12/22 BUN/Creatinine Ratio 18.4 (10-20) 10/12/22 Glu 96 mg/dl (70-99(Fasting)) 10/12/22 Ca 8.8 mg/dl (8.5-10.1) 10/12/22 Phosphorus Level 1.7 mg/dl (2.5-4.9) L 10/12/22 Total Bilirubin 0.7 mg/dl (0.2-1.0) 10/11/22 AST 18 U/L (13-39) 10/11/22 ALT 12 U/L (7-52) 10/11/22 Alkaline Phosphatase 94 U/L (34-104) 10/11/22 TP 7.5 gm/dl (6.0-8.3) 10/11/22 Albumin 4.4 gm/dl (3.4-5.0) 10/11/22 Globulin 3.1 gm/dl (2.5-4.0) 10/11/22 Albumin/Globulin Ratio 1.4 (0.9-2) 10/11/22 Mg 1.8 mg/dl (1.7-2.4) 10/12/22 02:08 Calcium Level 8.8 mg/dl (8.5-10.1) 10/12/22 02:08 Prothromb Time International Ratio 1.1 (0.9-1.1) 10/11/22 11:1 9 Diagnostic Findings (Past 24 Hours) Chest X-Ray 10/11/22 11:00 XR chest 1V portable HISTORY: Dyspnea COMPARISON: Chest 01/12/2012. FINDINGS: No pneumothorax. No pleural effusions. The cardiac silhouette is normal in size. Small linear scarlike density within the left midlung zone. Questionable nodular density within the right midlung zone is likely due to the overlapping ribs. No focal lung consolidations to suggest a pneumonia. No evidence for pulmonary edema. Degenerative changes within the shoulders, right greater than left. Old, healed right-sided rib fractures. IMPRESSION: 1. No acute process within the chest. 2. Questionable right midlung zone nodular density is likely due to the overlapping ribs. This will be better assessed on the same day chest CTA. ACT 112: Negative or not required by law. Electronically signed by: Ulises Leigh M.D. 10/11/2022 11:17 AM Chest CTA 10/11/22 11:07 CHEST CTA for PULMONARY ARTERIES CT DOSE: 384.55 mGy.cm HISTORY: Shortness of breath. TECHNIQUE: Multiaxial CT images of the chest were performed following the intravenous administration of contrast to evaluate the pulmonary arteries. Maximal intensity projection images were also obtained. A dose lowering technique was utilized adhering to the principles of ALARA. COMPARISON STUDY: Chest 10/11/2022. FINDINGS: Normal caliber thoracic aorta with no evidence for a dissection. There is flattening of the interventricular septum with mild enlargement of the right ventricle consistent with right-sided heart strain. This is secondary to extensive bilateral pulmonary emboli which involves the distal bilateral main pulmonary arteries, lobar pulmonary arteries, and majority of the segmental arteries. No mediastinal or hilar lymphadenopathy. The heart is mildly enlarged. Trace pericardial effusion. No pleural effusions. Normal esophagus. Limited views of the upper abdomen demonstrate a 1.7 cm cyst within the right hepatic lobe and a normal spleen. The visualized adrenal glands are unremarkable. There are old, healed bilateral rib fractures. No suspicious lytic are blastic osseous lesions. Degenerative changes, avascular process, and mild collapse of the right humeral head. The central airways are patent. No pneumothorax. There are few scattered peripheral small densities within the lung bases most pronounced within the right lower lobe which measures 2.9 cm. These favor pulmonary infarcts. Small cluster of nodular densities within the superior segment of the right lower lobe with the largest on image 140 measuring 1 cm. There are few additional scattered tree-in-bud nodular airspace opacities within the right upper lobe posteriorly and within the left upper lobe anteriorly. These favor a mild infectious bronchiolitis. There is a 5 mm subpleural nodule on the right minor fissure on image 156. Small linear densities within the left mid to lower lung zone may represent scarring or subsegmental atelectasis. IMPRESSION: 1. Extensive bilateral pulmonary emboli as described above with associated right-sided heart strain. 2. Scattered peripheral densities within the lung bases most pronounced within the right lower lobe which favor pulmonary infarcts. 3. Small cluster of nodular densities within the superior segment of the right lower lobe with the largest measuring 1 cm. These are indeterminate and could represent small foci of inflammatory/infectious change. However, [address] follow-up recommended to ensure stability/resolution of the dominant 1 cm nodule. 4. Additional findings as described above. ACT 112: Negative or not required by law. Electronically signed by: Ulises eLigh M.D. 10/11/2022 1:08 PM I & O Totals 24 Hours 10/11/22 10/12/22 10/13/22 06:59 06:59 06:59 Intake Total 876.767 / 876.767 669.467 / 669.467 Output Total 1000 / 1000 51 / 51 Balance -123.233 / -123.233 618.467 / 618.467 Cumulative 10/11/22 10:48 thru 10/12/22 08:00 Intake Total 1546.234 Output Total 1051 Balance 495.234 RT Ventilator Mngmt (Last Documented) Ventilator Ordered Settings Respiratory Rate 20 10/12/22 07:57 Fraction of Inspired Oxygen 4 10/11/22 16:11 Ventilator - PT Measurements Respiratory Rate 20 Coding Level of Care Code 89450 SUB INP/OBS CARE 3/50MIN Diagnoses Cor pulmonale, acute I26.09 Bilateral pulmonary embolism I26.99 Hypoxia R09.02 Troponin level elevated R77.8
[2022-10-12 10:34] LABS: Partial Thromboplastin Ratio 1.5; Partial Thromboplastin Time 42.1 Seconds (21.0-31.0)
[2022-10-12] MEDS: ACETAMINOPHEN 325 MG TAB PO PRN (15:18)
[2022-10-12 16:38] LABS: Partial Thromboplastin Ratio 1.5; Partial Thromboplastin Time 42.1 Seconds (21.0-31.0)
--- NOTE | 2022-10-12 19:25 | Hospitalist Progress Note ---
Date of Service October 12, 2022 Assessment & Plan (1) Acute respiratory failure with hypoxia: Plan: Now weaned to room air (2) Bilateral pulmonary embolism: Plan: With right heart strain s/p half dose TPA and now on heparin drip Will need OP hypercoagulable work up and age appropriate cancer screening Can likely discharge on Eliquis, will investigate insurance coverage Check LE u/s to evaluate for clot burden (3) Troponin level elevated: Plan: Results of TTE noted, indicates RV strain and dilation due to submassive PE. Would recommend repeat TTE in 3 months to monitor for recovery (4) Hypertension: Plan: Continue Coreg. Hold indapamide due to renal function (5) Hypokalemia: Plan: repeat BMP tomorrow (6) CKD (chronic kidney disease) stage 3, GFR 30-59 ml/min: Plan: Cr 1.85 (baseline ~ 1.4) - FLORENTIN superimposed on CKD. Plan to hold indapamide, repeat Cr improved (7) Bipolar 1 disorder: Plan: Continue Buspar TID (8) Dyslipidemia: Plan: Continue statin (9) Prediabetes: Plan: BSG ACHS, add SSI if indicated Pulm nodules Noted on CTA chest. [address] follow-up recommended to ensure stability/resolution of the dominant 1 cm nodule DVT Ppx: tpa, IV heparin Code status: FULL PCP: Delma Transfer to PCU. Likely discharge home in next 24 hours if she continues to do well. Admission and Anticipated Discharge Date Admission Date: October 11, 2022 Subjective Feels well. Denies chest pain, shortness of breath. Weaned to room air today Physical Exam Physical Exam: Appears well, no acute distress, non toxic Respiratory: breathing comfortably on room air, no wheezing/rhonchi/rales Cardiovascular: regular rate and rhythm, no murmurs/rubs/gallops Gastrointestinal (Abdomen): soft, non tender, non distended Musculoskeletal: No edema Neurologic: awake, alert, spontaneously moving extremities Results & Data Results & Data ([facility]) Vital Signs (Past 12 Hours) Vital Signs Temp Pulse Pulse Resp BP BP Pulse Ox 10/12/22 18:00 77 20 132/56 L 92 10/12/22 17:00 78 21 122/79 91 10/12/22 16:00 73 24 111/69 93 10/12/22 16:34 36.5 C 10/12/22 15:00 77 21 136/78 94 10/12/22 13:00 77 20 128/74 93 10/12/22 12:57 75 132/68 95 10/12/22 11:57 36.7 C 78 22 119/72 93 10/12/22 10:57 82 18 109/67 93 10/12/22 09:00 67 18 121/68 94 10/12/22 08:57 81 24 117/63 93 10/12/22 07:57 36.9 C 79 20 121/61 95 10/12/22 07:36 O2 Del Method O2 Flow Rate 10/12/22 18:00 Room Air 10/12/22 17:00 Room Air 10/12/22 16:00 Room Air 10/12/22 16:34 10/12/22 15:00 Nasal Cannula 2 10/12/22 13:00 Nasal Cannula 2 10/12/22 12:57 Nasal Cannula 2 10/12/22 11:57 Nasal Cannula 2 10/12/22 10:57 Nasal Cannula 2 10/12/22 09:00 Nasal Cannula 2 10/12/22 08:57 Nasal Cannula 2 10/12/22 07:57 Nasal Cannula 2 10/12/22 07:36 Nasal Cannula 2
--- NOTE | 2022-10-12 20:20 | Ultrasound Report ---
BILATERAL LOWER EXTREMITY VENOUS DOPPLER HISTORY: Acute pain and swelling of the lower legs evalaute for DVT COMPARISON STUDY: None. FINDINGS: There is normal compressibility, flow, and augmentation within the left lower extremity renee p venous structures. Occlusive thrombus within the right popliteal, posterior tibial, peroneal and anterior tibial veins. No additional DVT identified. IMPRESSION: 1. Likely acute occlusive deep venous thrombus of the right lower extremity. 2. No left-sided DVT. ACT 112: Negative or not required by law. Electronically signed by: Petr Roman M.D. 10/12/2022 8:19 PM
[2022-10-12] MEDS: HEPARIN SODIUM/DEXTROSE 25,000 UNITS/500 ML BAG IV SCH (23:30)
[2022-10-12 23:39] LABS: Partial Thromboplastin Ratio 1.5; Partial Thromboplastin Time 40.4 Seconds (21.0-31.0)
[2022-10-13 04:59] LABS: Hematocrit (blood only) 35.6 % (37.0-47.0); Hemoglobin 11.7 g/dl (12.0-16.0); Mean Corpuscular Hemoglobin 28.7 pg (25.0-34.0); Mean Corpuscular Hgb Conc 32.9 g/dL (32.0-36.0); Mean Corpuscular Volume 87.3 fL (80.0-100.0); Mean Platelet Volume 9.7 fL (9.4-12.4); Nucleated RBC # (auto) 0.03 K/uL (0-0.12); Nucleated RBC % (auto) 0.4 %; Platelet Count 261 K/uL (130-400); RDW Coefficient of Variation 16.5 % (11.5-14.5); RDW Standard Deviation 51.7 fL (36.4-46.3); Red Blood Count 4.08 M/uL (4.20-5.40); White Blood Count 6.68 K/ul (4.8-10.8)
[2022-10-13 05:15] LABS: BUN Creatinine Ratio 17.6 (10-20); Creatinine Clr Calc Pharmacy 42.9 ml/min; Est GFR (African American) 50.1 ml/min; Est GFR (Non-African American) 43.2 ml/min; Potassium 3.4 mmol/L (3.5-5.1)
[2022-10-13] MEDS ORDERED: POTASSIUM CHLORIDE CRTAB 20 MEQ TABCR PO STA (07:34)
[2022-10-13] MEDS ORDERED: POTASSIUM PHOS 3 MMOL/1 ML INFUSION IV STA (07:35)
[2022-10-13] MEDS ORDERED: POTASSIUM PHOSPHATE 15 MMOL in SODIUM CHLORIDE 0.9% 250 ML IV ONE (07:45)
[2022-10-13 07:46] LABS: Partial Thromboplastin Ratio 1.4; Partial Thromboplastin Time 38.2 Seconds (21.0-31.0)
[2022-10-13] MEDS: ROSUVASTATIN CALCIUM 10 MG TAB PO SCH (08:05)
[2022-10-13] MEDS: carvediloL 6.25 MG TAB PO SCH (08:05)
[2022-10-13] MEDS: busPIRone 15 MG TAB PO SCH (08:05)
[2022-10-13] MEDS ORDERED: APIXABAN 5 MG TABLET PO SCH (11:30)
[2022-10-13] MEDS: ACETAMINOPHEN 325 MG TAB PO PRN (11:59)
--- NOTE | 2022-10-16 22:07 | Discharge Summary ---
Date of Service Date of discharge October 13, 2022 Admission HPI Per Admitting Provider This is a 71-year-old female with PMH of hypertension, CKD 3, bipolar disorder, dyslipidemia, prediabetes, hyponatremia and other medical problems listed below who presents with shortness of breath for the past 2 days. First noticed it 2 days ago when she was walking but is has worsened to the point that she was short of breath when getting up to use the restroom. Went to see PCP in clinic and was directed to ED for further evaluation. Denies history of recent long car or plane travel, no cancer history, or former DVT/PE personally but both mom and sister have had them. Fam h/o ovarian and pancreatic cancer. Not aware of any precipitating cause. Patient also with remote history of lumpectomy many years ago when her children were infants. Denies any fever or chills. No lightheadedness, visual changes, chest pain, wheezing, nausea, vomiting, abdominal pain, dysuria, diarrhea or constipation. No calf pain or swelling. No lung disease but former smoker who quit in 2009. Principal Diagnosis Submassive PE Right DVT Acute hypoxic respiratory failure, resolved Discharge Exam appeared well, no acute distress Respiratory Breathing comfortably on room air, no wheezing Cardiovascular regular rate and rhythm, no murmurs Gastrointestinal (Abdomen) soft, non tender Musculoskeletal right leg edema Neurologic awake, alert, moving extremities Discharge Data Allergies Allergy/AdvReac Type Severity Reaction Status Date / Time No Known Allergies Allergy Unknown Verified 10/11/22 11:32 Consultations 10/11/22 13:12 Consult Sexual Assault Social Worker Stat 10/11/22 13:22 ED Decision to Admit Stat 10/11/22 14:50 Consult Sexual Assault Social Worker Routine Ordered Studies 10/11/22 11:07 CT angio chest PE protocol Stat 10/12/22 19:25 US venous doppler LE Stat Hospital Course (1) Acute respiratory failure with hypoxia: Now weaned to room air (2) Bilateral pulmonary embolism: With right heart strain Received half dose TPA then placed on heparin drip Will need outpatient hypercoagulable work up and age appropriate cancer screening Lower extremity ultrasound also positive for right occlusive DVT Tolerated anticoagulation with no bleeding observed here Transitioned to Eliquis at discharge (verified that her copay is affordable) Will need at least 3-6 months of anticoagulation. Final course TBD by her PCP with input from hematology. (3) Troponin level elevated: Results of TTE noted, indicates RV strain and dilation due to submassive PE. Would recommend repeat TTE in 3 months to monitor for recovery (4) Hypertension: Continue Coreg. Indapamide discontinued here (5) Hypokalemia: repleted (6) CKD (chronic kidney disease) stage 3, GFR 30-59 ml/min: Cr 1.85 (baseline ~ 1.4) - FLORENTIN superimposed on CKD. Cr back to baseline prior to discharge (7) Bipolar 1 disorder: Continue Buspar TID (8) Dyslipidemia: Continue statin (9) Prediabetes: Pulm nodules Noted on CTA chest. [address] follow-up recommended to ensure stability/resolution of the dominant 1 cm nodule Total Time Total Time Spent Total Time Spent (In Minutes): 40 Discharge Plan Discharge Items Patient Disposition: Home - Self-Care Reason For Visit: EXTENSIVE PES WITH RIGHT HEART STRAIN Discharge Diagnosis: Submassive PE Right DVT Condition on Discharge: Good Activity: Resume your previous activity Non-emergency contact: Primary Care Provider Call non-emergency contact if: you have any medication questions and your symptoms worsen Follow-up/Referrals: Jake Nguyễn MD [Primary Care Provider] - Diet: Heart Healthy Addtl Attending Provider Instructions: For DVT/PE You were admitted for a large blood clot in your lungs with strain on your heart. You were also found to have a blood clot in your right leg. In the hospital, you received TPA ("clot buster") and then heparin (IV blood thinner). You tolerated both medications well with no bleeding. You were also able to come off oxygen. You will go home on Eliquis 10mg twice a day for 7 days then 5mg twice a day for at least 3-6 months. Your doctor may want to repeat your right leg ultrasound to ensure the blood clot has resolved before stopping your Eliquis. You should follow up with a [facility] to have a hypercoagulable workup given your family history. While you are on a blood thinner, you should avoid NSAIDs (advil, ibuprofen, naproxen) which can increase your bleeding risk. For pain, you can take acetaminophen (not to exceed 3 grams a day) You were also started on protonix 20mg daily to help protect your stomach while you are on Eliquis. This may be discontinued in the future when you are no longer on blood thinners. You had an Echo here which revealed significant strain on the right side of your heart. You should have a repeat Echo in 3 months to monitor For Blood pressure You had mild kidney injury on admission (Cr 1.8) which resolved at time of discharge (Cr 1.2) Your Indapamide was discontinued. Your blood pressure while here has been stable on only Carvedilol. Please follow up with your family doctor to decide whether Indapamide needs to be restarted in the future. Pending Studies at Discharge: No Stand-Alone Forms: My [facility], Smoking Cessation Medications and DC Order Prescriptions: New Eliquis 5 mg tablet 10 mg PO Q12H 7 Days Qty: 28 0RF Rx Instructions: 7 day loading dose. Eliquis 5 mg tablet 5 mg PO Q12H Qty: 60 2RF Rx Instructions: After completion of 7 day loading dose pantoprazole [Protonix] 20 mg tablet,delayed release (DR/EC) 20 mg PO DAILY Qty: 14 0RF Continued carvedilol 6.25 mg tablet 6.25 mg PO BID buspirone 15 mg tablet 15 mg PO TID rosuvastatin 10 mg tablet 10 mg PO DAILY Percogesic 12.5-325 mg Tablet 1 tab PO DAILY PRN (Reason: Pain) Rx Instructions: patient takes for leg pain Discontinued indapamide 2.5 mg tablet 2.5 mg PO DAILY Discharge Orders: Discharge Order (Routine); Ordered 10/13/22 Ordered By: Yovany Diaz/Other Patient Handouts: Pulmonary Embolism Dc Admission Data Admit Date/Time: 10/11/22 13:27 Attending Provider: Yovany Hagen Admit Provider: Yovany Hagen Primary Care Provider: Jake Nguyễn Other Providers: Davey Amato ; Yovany Hagen Other Interventions: Discharge Summary Assessment (RN) Last Done: 10/13/22 12:19
== END 2022-10-13 12:49 | disposition home or self-care (01) | DRG 175 ==
LOC: ED 10:54 → 1E 13:27

== ENCOUNTER 2023-02-08 13:22 | Observation (INO) ==
[2023-02-08 15:27] LABS: Alanine Aminotransferase 6 U/L (7-52); Albumin Globulin Ratio 1.7 (0.9-2); Albumin Level 4.1 gm/dl (3.4-5.0); Alkaline Phosphatase 127 U/L (34-104); Anion Gap 8 (3-11); Aspartate Aminotransferase 9 U/L (13-39); BUN Creatinine Ratio 19.6 (10-20); Bilirubin,Total 0.5 mg/dl (0.2-1.0); Blood Urea Nitrogen 29 mg/dl (6-23); Calcium 9.2 mg/dl (8.6-10.3); Carbon Dioxide 22 mmol/L (21-32); Chloride 114 mmol/L (98-107); Est GFR (African American) 40.6 ml/min; Globulin 2.4 gm/dl (2.5-4.0); Glucose 151 mg/dl (70-99(Fasting)); Potassium 3.3 mmol/L (3.5-5.1); Sodium 144 mmol/L (136-145); Total Protein 6.5 gm/dl (6.0-8.3)
[2023-02-08 15:37] LABS: Hematocrit (blood only) 17.3 % (37.0-47.0); Hemoglobin 4.5 g/dl (12.0-16.0); Mean Corpuscular Hemoglobin 19.1 pg (25.0-34.0); Mean Corpuscular Volume 73.3 fL (80.0-100.0); Mean Platelet Volume 10.2 fL (9.4-12.4); Nucleated RBC # (auto) 0.26 K/uL (0-0.12); Nucleated RBC % (auto) 2.7 %; Platelet Count 372 K/uL (130-400); RDW Coefficient of Variation 19.8 % (11.5-14.5); Red Blood Count 2.36 M/uL (4.20-5.40); White Blood Count 9.57 K/ul (4.8-10.8)
[2023-02-08 15:48] LABS: Basophils # (auto) 0.09 K/uL (0-0.2); Basophils % (auto) 0.9 %; Eosinophils # (auto) 0.14 K/uL (0-0.50); Eosinophils % (auto) 1.5 %; Hypochromasia Present; Immature Granulocytes # (auto) 0.05 K/uL (0.01-0.20); Immature Granulocytes % (auto) 0.5 %; Lymphocytes # (auto) 1.55 K/uL (1.2-3.4); Lymphocytes % (auto) 16.2 %; Monocytes # (auto) 0.36 K/uL (0.11-0.59); Monocytes % (auto) 3.8 %; Neutrophils # (auto) 7.38 K/uL (1.40-6.50); Neutrophils % (auto) 77.1 %; Polychromasia 1+; Tear Drop Cells 1+
[2023-02-08 15:55] LABS: D Dimer < 190 ug/L FEU (0-500); INR 1.3 (0.9-1.1); Partial Thromboplastin Ratio 0.9; Partial Thromboplastin Time 25.2 Seconds (21.0-31.0); Prothrombin Time 13.8 Seconds (9.0-12.0)
[2023-02-08] MEDS ORDERED: PANTOprazole 40 MG in SYRINGE 0 ML IV ONE (15:55)
[2023-02-08] MEDS ORDERED: SODIUM CHLORIDE 0.9% 250 ML IV PRN ×2 (15:59→19:31)
--- NOTE | 2023-02-08 16:03 | Emergency Department Note ---
Impression & Plan Acute GI bleeding, Anemia, GRIMES (dyspnea on exertion) ED Provider Note NAME: PETRONA KATZ AGE: 72 SEX: F : 1950 ARRIVES VIA: Walk-In INFORMANT: Patient, ED PROVIDER(S): Artem Pete DO CHIEF COMPLAINT: Shortness of breath HPI: The patient is a 72-year-old female who presented to the emergency department for an evaluation of shortness of breath. The patient noticed dyspnea on exertion for approximately 1 month. The patient states she was diagnosed with a pulmonary embolism in the spring. She does take blood thinners. The patient states that she has no black or tarry stools. She notices no abdominal pain or chest pain. She notices no lower extremity swelling. The patient was seen by her primary pulmonary physician today and sent to the emergency department for concerns of ongoing venous thromboembolic disease. The patient denies having any recent trauma. She states that she has been compliant with all of her outpatient medications. ROS: See above HPI for pertinent positives & negatives. A total of 10 systems reviewed and were otherwise negative. PAST MEDICAL HISTORY: See Below PAST SURGICAL HISTORY: See Below FAMILY HISTORY: See Below SOCIAL HISTORY: See Below HOME MEDICATIONS: See Below ALLERGIES: See Below VITALS: See Below PHYSICAL EXAMINATION: GENERAL: Patient is awake alert in no acute distress patient is resting comfortably and showing no signs of anxiety EYES: The conjunctivae are clear. The pupils are round and reactive. EARS, NOSE, MOUTH AND THROAT: The nose is without any evidence of any deformity. Mucous membranes are moist. Tongue is midline. NECK: The neck is nontender and supple. RESPIRATORY: Normal respiratory effort is noted there is no evidence of wheezing rhonchi or rales CARDIOVASCULAR: Regular rate and rhythm noted there no murmurs rubs or gallops normal S1 normal S2. GASTROINTESTINAL: The abdomen is soft. Abdomen is nontender. Rectal exam revealed brown stool which was strongly heme positive. MUSCULOSKELETAL/EXTREMITIES: There is no evidence of gross deformity full range of motion is noted in the hips and shoulders. SKIN: There is no obvious evidence of any rash. There are no petechiae, pallor or cyanosis noted. NEUROLOGIC: Patient is awake alert and oriented x3 MEDICAL DECISION MAKING: The patient is a 72-year-old female who presented to the emergency department for an evaluation of difficulty breathing. The patient has a history of venous thromboembolic disease and PE. She was seen by her pulmonary physician today. This was felt to be a possibility of another pulmonary embolism. The pulmonary doctor also thought it could be related to a cardiac issue. For this reason the patient was sent to the emergency department for further evaluation. The patient was found to have significant anemia. On my exam she had heme positive stool. I discussed the patient's laboratory and radiographic studies with her. I did consent the patient for blood transfusion. I ordered 2 units of blood to be transfused. I discussed patient's condition [facility] They have agreed to evaluate the patient in the emergency department for further management and disposition. Triage Nursing notes reviewed. Prior medical records reviewed Vital Signs: reviewed and remarkable for no significant abnormalities Differential diagnosis: Reactive airway disease, pneumonia, pneumothorax, COPD, CHF, infections, cardiac ischemia, pulmonary embolism, musculoskeletal, gastrointestinal, as well as other pathologies. ER treatment provided: See below Diagnostics interpreted by me: ECG: EKG was obtained in the emergency department. My interpretation is normal sinus rhythm at 68 bpm. There is no ectopy. There is no acute ST segment abnormalities noted. This was compared to a tracing from October 11, 2022. On the previous EKG there was significant ST depressions noted globally. This is since resolved Cardiac Monitoring: An order was placed for continuous cardiac monitoring. The monitor shows a rate of 76 bpm with sinus rhythm. Laboratory studies: As stated above and show below. Imaging studies: See below. Radiographic imaging was reviewed by myself Consultation(s): I discussed this case with Destiny who is on-call for the [facility] group Critical care time I have personally spent greater than 45 minutes of critical care time in the direct management of this patient. This includes bedside care, interpretation of diagnostic studies, and testing, discussion with consultants, patient, and family members, and other required patient management activities. This 45 minutes is in excess of all separately billable procedures. Past Med/Surg History Medical History Acute electrocardiogram changes Acute respiratory failure with hypoxia Bipolar 1 disorder CKD (chronic kidney disease) stage 3, GFR 30-59 ml/min Dyslipidemia Elevated troponin Hypertension Hypokalemia Hypoxia Prediabetes Troponin level elevated Surgical History H/O bone graft femur fx with bone graft and pin, age 16 H/O breast biopsy 1988; benign History of partial hysterectomy History of tonsillectomy Family History Other Hypertension Ovarian cancer Pancreatic cancer Social History Smoking Status: Never smoker Tobacco Type: Cigarettes Hx Alcohol Use: No Hx Substance Use: No Preferred Language: Frisian Communication Ability: Effective Acting Teacher Required: No Beliefs That Will Affect Care: None Current Living Situation: Spouse Feels Safe at Home: Yes Assistive Devices: Other Allergies Allergies Allergy/AdvReac Type Severity Reaction Status Date / Time pantoprazole AdvReac Intermediate "HORRIBLE Verified 02/08/23 17:01 HEADACHES". Home Meds Home Medications Medication Instructions Recorded Confirmed buspirone 15 mg tablet 15 mg PO TID 10/11/22 02/08/23 carvedilol 6.25 mg tablet 6.25 mg PO BID 10/11/22 02/08/23 diphenhydramine 12.5 1 tab PO DAILY PRN Pain 10/11/22 02/08/23 mg-acetaminophen 325 mg tablet (Percogesic) rosuvastatin 10 mg tablet 10 mg PO DAILY 10/11/22 02/08/23 famotidine 20 mg tablet 20 mg PO BID 02/08/23 02/08/23 Previous Rx's Medication Instructions Recorded apixaban 5 mg tablet (Eliquis) 5 mg PO Q12H #60 tabs 10/13/22 Results & Data (ED) Vital Signs Vital Signs - 24 hr 02/08/23 13:37 02/08/23 15:50 02/08/23 15:50 Temperature 36.5 C Temperature Source Temporal Artery Scan Pulse Rate 74 Pulse Rate [Apical] 78 Pulse Rate from SpO2 Sensor Respiratory Rate 18 20 Respiratory Effort / Characteristics Non-Labored Respiratory Depth Normal Normal Blood Pressure 118/54 L Blood Pressure [Right Arm] 132/91 Blood Pressure Mean 75 Blood Pressure Mean [Right Arm] 104 Pulse Oximetry 97 100 Oxygen Delivery Method Room Air Room Air Room Air Sepsis Recent Fever Within 48 Hours No Sepsis New/Unexplained Change in Mental Status No Sepsis Action Taken by Nursing No Action Required 02/08/23 15:52 02/08/23 17:02 02/08/23 16:06 Temperature Temperature Source Pulse Rate 75 Pulse Rate [Apical] 80 Pulse Rate from SpO2 Sensor Respiratory Rate 14 Respiratory Effort / Characteristics Respiratory Depth Blood Pressure Blood Pressure [Right Arm] 156/79 H Blood Pressure Mean Blood Pressure Mean [Right Arm] 104 Pulse Oximetry Oxygen Delivery Method Room Air Room Air Sepsis Recent Fever Within 48 Hours Sepsis New/Unexplained Change in Mental Status Sepsis Action Taken by Nursing 02/08/23 17:47 02/08/23 16:00 02/08/23 16:30 Temperature 37.0 C Temperature Source Oral Pulse Rate 76 80 79 Pulse Rate [Apical] Pulse Rate from SpO2 Sensor 80 Respiratory Rate 22 17 24 Respiratory Effort / Characteristics Respiratory Depth Blood Pressure 149/88 H Blood Pressure [Right Arm] Blood Pressure Mean 108 Blood Pressure Mean [Right Arm] Pulse Oximetry 97 98 Oxygen Delivery Method Sepsis Recent Fever Within 48 Hours Sepsis New/Unexplained Change in Mental Status Sepsis Action Taken by Nursing 02/08/23 17:01 02/08/23 17:02 02/08/23 17:02 Temperature Temperature Source Pulse Rate 78 Pulse Rate [Apical] Pulse Rate from SpO2 Sensor Respiratory Rate 9 L 17 Respiratory Effort / Characteristics Respiratory Depth Blood Pressure 156/79 H Blood Pressure [Right Arm] Blood Pressure Mean 122 Blood Pressure Mean [Right Arm] Pulse Oximetry Oxygen Delivery Method Sepsis Recent Fever Within 48 Hours Sepsis New/Unexplained Change in Mental Status Sepsis Action Taken by Nursing 02/08/23 17:30 02/08/23 17:31 02/08/23 17:31 Temperature Temperature Source Pulse Rate 79 80 Pulse Rate [Apical] Pulse Rate from SpO2 Sensor 80 80 Respiratory Rate 18 20 Respiratory Effort / Characteristics Respiratory Depth Blood Pressure 148/73 H Blood Pressure [Right Arm] Blood Pressure Mean 88 Blood Pressure Mean [Right Arm] Pulse Oximetry 97 97 Oxygen Delivery Method Room Air Room Air Sepsis Recent Fever Within 48 Hours Sepsis New/Unexplained Change in Mental Status Sepsis Action Taken by Nursing 02/08/23 18:05 02/08/23 18:20 Temperature 36.8 C 36.7 C Temperature Source Oral Oral Pulse Rate 81 79 Pulse Rate [Apical] Pulse Rate from SpO2 Sensor Respiratory Rate 19 20 Respiratory Effort / Characteristics Respiratory Depth Blood Pressure 156/91 H 181/91 H Blood Pressure [Right Arm] Blood Pressure Mean 112 121 Blood Pressure Mean [Right Arm] Pulse Oximetry 97 96 Oxygen Delivery Method Sepsis Recent Fever Within 48 Hours Sepsis New/Unexplained Change in Mental Status Sepsis Action Taken by Custodial Medications Current Medication List: was personally reviewed by me Laboratory Data Attestation: I reviewed the patient's lab results. 02/08/23 14:50 02/08/23 14:50 Lab Results 02/08/23 02/08/23 02/08/23 Range/Units 14:50 14:50 14:50 WBC 9.57 (4.8-10.8) K/ul RBC 2.36 L (4.20-5.40) M/uL Hgb 4.5 L* (12.0-16.0) g/dl Hct 17.3 L* (37.0-47.0) % MCV 73.3 L (80.0-100.0) fL MCH 19.1 L (25.0-34.0) pg MCHC 26.0 L (32.0-36.0) g/dL RDW Std Deviation 52.0 H (36.4-46.3) fL RDW Coeff of Joanna 19.8 H (11.5-14.5) % Plt Count 372 (130-400) K/uL MPV 10.2 (9.4-12.4) fL Immature Gran % (Auto) 0.5 % Neut % (Auto) 77.1 % Lymph % (Auto) 16.2 % [place] % (Auto) 3.8 % Eos % (Auto) 1.5 % Baso % (Auto) 0.9 % Reticulocyte % (Auto) 2.1 H (0.5-2.0) % Neut # (Auto) 7.38 H (1.40-6.50) K/uL Lymph # (Auto) 1.55 (1.2-3.4) K/uL Cuming # (Auto) 0.36 (0.11-0.59) K/uL Eos # (Auto) 0.14 (0-0.50) K/uL Baso # (Auto) 0.09 (0-0.2) K/uL Reticulocyte # 0.05 (0.02-0.10) 10^6/uL Immature Gran # (Auto) 0.05 (0.01-0.20) K/uL Absolute Nucleated RBC 0.26 H (0-0.12) K/uL Nucleated RBC % (auto) 2.7 % Polychromasia 1+ Hypochromasia Present Tear Drop Cells 1+ PT 13.8 H (9.0-12.0) Seconds INR 1.3 H (0.9-1.1) APTT 25.2 (21.0-31.0) Seconds PTT Ratio 0.9 D-Dimer < 190 (0-500) ug/L FEU Sodium 144 (136-145) mmol/L Potassium 3.3 L (3.5-5.1) mmol/L Chloride 114 H (98-107) mmol/L Carbon Dioxide 22 (21-32) mmol/L Anion Gap 8 (3-11) BUN 29 H (6-23) mg/dl Creatinine 1.48 H (0.6-1.2) mg/dl Est Cr Clr Drug Dosing Not Reportable Est GFR ( Amer) 40.6 ml/min Est GFR (Non-Af Amer) 35.0 ml/min BUN/Creatinine Ratio 19.6 (10-20) Glucose 151 H (70-99(Fasting)) mg/dl Calcium 9.2 (8.6-10.3) mg/dl Total Bilirubin 0.5 (0.2-1.0) mg/dl AST 9 L (13-39) U/L ALT 6 L (7-52) U/L Alkaline Phosphatase 127 H (34-104) U/L Total Protein 6.5 (6.0-8.3) gm/dl Albumin 4.1 (3.4-5.0) gm/dl Globulin 2.4 L (2.5-4.0) gm/dl Albumin/Globulin Ratio 1.7 (0.9-2) Urine Color Urine Appearance (Clear) Urine pH (4.5-7.5) Ur Specific [place] (1.000-1.030) Urine Protein (Negative) Urine Glucose (UA) (Negative) Urine Ketones (Negative) Urine Blood (Negative) Urine Nitrite (Negative) Urine Bilirubin (Negative) Urine Urobilinogen (Negative) Ur Leukocyte Esterase (Negative) Urine WBC (Auto) (0-5) /hpf Urine RBC (Auto) (0-4) /hpf U Hyaline Cast (Auto) (0-5) /lpf U Epithel Cells (Auto) (0-5) /lpf Urine Bacteria (Auto) (Negative) Urine Yeast SARS-CoV-2, RNA, NAAT (NEGATIVE) Blood Type Blood Type Recheck Antibody Screen Crossmatch 02/08/23 02/08/23 02/08/23 Range/Units 15:55 15:57 16:12 WBC (4.8-10.8) K/ul RBC (4.20-5.40) M/uL Hgb (12.0-16.0) g/dl Hct (37.0-47.0) % MCV (80.0-100.0) fL MCH (25.0-34.0) pg MCHC (32.0-36.0) g/dL RDW Std Deviation (36.4-46.3) fL RDW Coeff of Joanna (11.5-14.5) % Plt Count (130-400) K/uL MPV (9.4-12.4) fL Immature Gran % (Auto) % Neut % (Auto) % Lymph % (Auto) % [place] % (Auto) % Eos % (Auto) % Baso % (Auto) % Reticulocyte % (Auto) (0.5-2.0) % Neut # (Auto) (1.40-6.50) K/uL Lymph # (Auto) (1.2-3.4) K/uL [place] # (Auto) (0.11-0.59) K/uL Eos # (Auto) (0-0.50) K/uL Baso # (Auto) (0-0.2) K/uL Reticulocyte # (0.02-0.10) 10^6/uL Immature Gran # (Auto) (0.01-0.20) K/uL Absolute Nucleated RBC (0-0.12) K/uL Nucleated RBC % (auto) % Polychromasia Hypochromasia Tear Drop Cells PT (9.0-12.0) Seconds INR (0.9-1.1) APTT (21.0-31.0) Seconds PTT Ratio D-Dimer (0-500) ug/L FEU Sodium (136-145) mmol/L Potassium (3.5-5.1) mmol/L Chloride (98-107) mmol/L Carbon Dioxide (21-32) mmol/L Anion Gap (3-11) BUN (6-23) mg/dl Creatinine (0.6-1.2) mg/dl Est Cr Clr Drug Dosing Est GFR ( Amer) ml/min Est GFR (Non-Af Amer) ml/min BUN/Creatinine Ratio (10-20) Glucose (70-99(Fasting)) mg/dl Calcium (8.6-10.3) mg/dl Total Bilirubin (0.2-1.0) mg/dl AST (13-39) U/L ALT (7-52) U/L Alkaline Phosphatase (34-104) U/L Total Protein (6.0-8.3) gm/dl Albumin (3.4-5.0) gm/dl Globulin (2.5-4.0) gm/dl Albumin/Globulin Ratio (0.9-2) Urine Color Urine Appearance (Clear) Urine pH (4.5-7.5) Ur Specific [place] (1.000-1.030) Urine Protein (Negative) Urine Glucose (UA) (Negative) Urine Ketones (Negative) Urine Blood (Negative) Urine Nitrite (Negative) Urine Bilirubin (Negative) Urine Urobilinogen (Negative) Ur Leukocyte Esterase (Negative) Urine WBC (Auto) (0-5) /hpf Urine RBC (Auto) (0-4) /hpf U Hyaline Cast (Auto) (0-5) /lpf U Epithel Cells (Auto) (0-5) /lpf Urine Bacteria (Auto) (Negative) Urine Yeast SARS-CoV-2, RNA, NAAT NEGATIVE (NEGATIVE) Blood Type AB Positive Blood Type Recheck AB Positive Antibody Screen NEGATIVE Crossmatch See Detail 02/08/23 Range/Units 17:08 WBC (4.8-10.8) K/ul RBC (4.20-5.40) M/uL Hgb (12.0-16.0) g/dl Hct (37.0-47.0) % MCV (80.0-100.0) fL MCH (25.0-34.0) pg MCHC (32.0-36.0) g/dL RDW Std Deviation (36.4-46.3) fL RDW Coeff of Joanna (11.5-14.5) % Plt Count (130-400) K/uL MPV (9.4-12.4) fL Immature Gran % (Auto) % Neut % (Auto) % Lymph % (Auto) % [place] % (Auto) % Eos % (Auto) % Baso % (Auto) % Reticulocyte % (Auto) (0.5-2.0) % Neut # (Auto) (1.40-6.50) K/uL Lymph # (Auto) (1.2-3.4) K/uL [place] # (Auto) (0.11-0.59) K/uL Eos # (Auto) (0-0.50) K/uL Baso # (Auto) (0-0.2) K/uL Reticulocyte # (0.02-0.10) 10^6/uL Immature Gran # (Auto) (0.01-0.20) K/uL Absolute Nucleated RBC (0-0.12) K/uL Nucleated RBC % (auto) % Polychromasia Hypochromasia Tear Drop Cells PT (9.0-12.0) Seconds INR (0.9-1.1) APTT (21.0-31.0) Seconds PTT Ratio D-Dimer (0-500) ug/L FEU Sodium (136-145) mmol/L Potassium (3.5-5.1) mmol/L Chloride (98-107) mmol/L Carbon Dioxide (21-32) mmol/L Anion Gap (3-11) BUN (6-23) mg/dl Creatinine (0.6-1.2) mg/dl Est Cr Clr Drug Dosing Est GFR ( Amer) ml/min Est GFR (Non-Af Amer) ml/min BUN/Creatinine Ratio (10-20) Glucose (70-99(Fasting)) mg/dl Calcium (8.6-10.3) mg/dl Total Bilirubin (0.2-1.0) mg/dl AST (13-39) U/L ALT (7-52) U/L Alkaline Phosphatase (34-104) U/L Total Protein (6.0-8.3) gm/dl Albumin (3.4-5.0) gm/dl Globulin (2.5-4.0) gm/dl Albumin/Globulin Ratio (0.9-2) Urine Color Yellow Urine Appearance Clear (Clear) Urine pH 5.5 (4.5-7.5) Ur Specific [place] 1.017 (1.000-1.030) Urine Protein Trace H (Negative) Urine Glucose (UA) Negative (Negative) Urine Ketones Negative (Negative) Urine Blood Trace H (Negative) Urine Nitrite Negative (Negative) Urine Bilirubin Negative (Negative) Urine Urobilinogen Negative (Negative) Ur Leukocyte Esterase 1+ H (Negative) Urine WBC (Auto) 10-30 H (0-5) /hpf Urine RBC (Auto) 5-10 H (0-4) /hpf U Hyaline Cast (Auto) 5-10 H (0-5) /lpf U Epithel Cells (Auto) >30 H (0-5) /lpf Urine Bacteria (Auto) Negative (Negative) Urine Yeast Not Reportable SARS-CoV-2, RNA, NAAT (NEGATIVE) Blood Type Blood Type Recheck Antibody Screen Crossmatch Administered Medications Discontinued Medications Pantoprazole Sodium 40 mg/ (Syringe) 10 mls @ 5 mls/min IV NOW ONE Stop: 02/08/23 15:56 Last Admin: 02/08/23 16:46 Dose: 5 mls/min Documented By: ZOYA Imaging Data Attestation: I personally reviewed and interpreted this imaging study as follows: My Impression: 1 view chest x-ray was obtained in the emergency department. My interpretation is no free air or definite infiltrate, final report below. Radiologist's Impression: Chest X-Ray 02/08/23 13:38 XR chest 1V portable CLINICAL HISTORY: Dyspnea TECHNIQUE: Single frontal radiograph of the chest was obtained. Comparison: Comparison is made to chest radiograph 10/11/2022 FINDINGS: No lines and tubes are seen. The cardiomediastinal silhouette is normal. The lungs are clear. . Previously noted density in the right mid chest is no longer seen. No evidence of pleural effusion or pneumothorax. IMPRESSION: No acute chest disease. ACT 112: Negative or not required by law. Electronically signed by: Nba Lemus M.D. 02/08/2023 4:41 PM Discharge Plan Visit Data Chief Complaint: Shortness of Breath/Dyspnea Stated Complaint: SHORTNESS OF BREATH ED Provider: Artem Pete Discharge Problem: Acute GI bleeding, Anemia, GRIMES (dyspnea on exertion) Patient Disposition: Being Evaluated by Hospitalist Forms Stand Alone Forms: My [facility] [place] [facility] Prescriptions Prescriptions: No Action famotidine 20 mg tablet 20 mg PO BID carvedilol 6.25 mg tablet 6.25 mg PO BID buspirone 15 mg tablet 15 mg PO TID rosuvastatin 10 mg tablet 10 mg PO DAILY Percogesic 12.5-325 mg Tablet 1 tab PO DAILY PRN (Reason: Pain) Rx Instructions: patient takes for leg pain Eliquis 5 mg tablet 5 mg PO Q12H Qty: 60 2RF Referrals Referrals: Jake Nguyễn MD [Primary Care Provider] - Anemia Qualifiers: Anemia type: unspecified type Qualified Code(s): D64.9 - Anemia, unspecified
[2023-02-08 16:04] LABS: Reticulocyte % 2.1 % (0.5-2.0); Reticulocytes # 0.05 10^6/uL (0.02-0.10)
--- NOTE | 2023-02-08 16:43 | XRay Report ---
XR chest 1V portable CLINICAL HISTORY: Dyspnea TECHNIQUE: Single frontal radiograph of the chest was obtained. Comparison: Comparison is made to chest radiograph 10/11/2022 FINDINGS: No lines and tubes are seen. The cardiomediastinal silhouette is normal. The lungs are clear. . Previ ously noted density in the right mid chest is no longer seen. No evidence of pleural effusion or pneu mothorax. IMPRESSION: No acute chest disease. ACT 112: Negative or not required by law. Electronically signed by: Nba Lemus M.D. 02/08/2023 4:41 PM
[2023-02-08 17:41] LABS: Appearance Urine Clear (Clear); Bacteria Urine Automated Negative (Negative); Bilirubin Urine Negative (Negative); Blood Urine Trace (Negative); Color Urine Yellow; Epithelial Cell Urine Auto >30 /lpf (0-5); Glucose Urine UA Negative (Negative); Ketones Urine Negative (Negative); Leukocyte Esterase Urine 1+ (Negative); Nitrite Urine Negative (Negative); Protein Urine Trace (Negative); Specific Gravity Urine 1.017 (1.000-1.030); Urobilinogen Urine Negative (Negative); pH Urine 5.5 (4.5-7.5)
[2023-02-08] MEDS ORDERED: ACETAMINOPHEN 325 MG TAB PO PRN (19:31)
[2023-02-08] MEDS: PANTOprazole 40 MG in SYRINGE 0 ML IV SCH (20:42)
[2023-02-08] MEDS: busPIRone 15 MG TAB PO SCH (20:42)
--- NOTE | 2023-02-08 20:42 | History & Physical Report ---
Date of Service February 08, 2023 Assessment & Plan (1) Anemia: (2) Heme positive stool: Plan: Admit to telemetry Patient presenting by referral of pulmonology office for evaluation of shortness of breath. In the ED, labs show Hgb 4.5 and stools are heme positive. No signs of gross or active GI bleeding. Hemodynamically stable. Patient had positive Cologuard test 05/2022 however due to various issues, colonoscopy has not been completed yet. Started on Eliquis 10/2022 for bilateral PE and RLE DVT S/p Protonix 40 mg IV in the ED, continue with IV PPI BID 2 unit PRBC, trend H&H Clear liquids GI consult, Dr. Muller notified via tiger text (3) History of pulmonary embolism: (4) History of DVT (deep vein thrombosis): Plan: 10/2022-admitted for bilateral pulmonary embolism with right heart strain and RLE DVT Hold Eliquis due to anemia/heme positive stools Has not had hypercoagulable work-up completed (5) Hypertension: Plan: BP controlled, continue carvedilol (6) CKD (chronic kidney disease) stage 3, GFR 30-59 ml/min: Plan: Baseline creatinine low 1s Creatinine 1.4 today Monitor renal functions (7) Bipolar 1 disorder: Plan: Stable, continue home meds (8) Dyslipidemia: Plan: Continue statin DVT PROPHYLAXIS SCDs due to anemia/heme positive stool Patient seen in collaboration with Dr. Heaton. I spent a total of 75 minutes coordinating, documenting, and providing care for this patient excluding time spent in the performance of separately billed servi anthony. This included personally reviewing all current laboratories and imaging studies, medication reconciliation, outpatient chart review, and discussion with specialists. Plan I have seen and examined the patient and have discussed the case with the provider above. I agree with the assessment and plan as stated. The patient is a 72 yo F on apixaban for treatment of a bilateral PE and DVT found in October 2022. She reports feeling short of breath this week and workup reveals an Hb 4.5. She has already received one unit of pRBC and is doing well. She denies any pain. She is really concerned about prepping for a possible colonoscopy as the prep given to her in Aug 2022 included a two day fast. She is very upset about this. She has been started on Protonix IV and an additional unit of blood is being given. On physical exam she is obese and in NAD. Pulmonary auscultation reveals diminished breath sounds at the bases bilaterally without wheezing. Cardiovascular exam reveals S1/2 heard with no murmurs and no peripheral edema. Regular rate and rhythm. Abdomen is soft, NTND. She is oriented with no gross focal neuromuscular deficits. Labwork reviewed including H/H 4.5/17.3, Na 144, K 3.3, BUN 29, Creat 1.48, UA with possible contamination and no clear bacteria, CXR is negative for acute disease. 1. Symptomatic anemia possibly 2/2 acute blood loss 2. PE/DVT Agree with plan to resuscitate her with blood products. Two units ordered with a repeat Hb post transfusion. There is no recent abdominal imaging within the past year. Patient had a positive cologard test last fall with no colonoscopy completed. She needs a colonoscopy as soon as possible, defer to GI on this workup. Cont PPI 40 IV BID for now pending further workup of anemia source. Of course, she has completed 3 months of apixaban for treatment of PE, however, this was unprovoked per her report. A longer course of apixaban was recommended (extended 3 months). She is no longer able to have ongoing anticoagulation and may want to consider touching base with hematology after H/H is improved and we have more information on the source of the anemia. If ongoing anticoagulation is important at this point, may need to consider transfer for IVC filter placeme nt as there is no vascular support at this facility until February 18. Per guidelines, screening for evidence of DVT now would not change the need for IVC filter. DO Sudarshan Admission and Anticipated Discharge Date Admission Date: February 08, 2023 History of Present Illness Chief Complaint: Shortness of breath Primary Care Provider: Jake Nguyễn MD 72-year-old female with PMH CKD stage III, HTN, bipolar disorder, history of DVT/PE on Eliquis, and other problems listed below who presents to the ED by referral of outpatient pulmonology office for evaluation of shortness of breath. History obtained from the patient and review of outpatient PCP and pulmonary records. Patient admitted to [facility] 10/2022 for bilateral pulmonary embolism with right heart strain and RLE DVT. Patient started on Eliquis. Over the past couple of weeks, patient has noted worsening exertional shortness of breath and fatigue. Patient had CT chest without contrast on 01/22/2023 which showed clustered tree-in-bud nodules likely infectious or inflammatory. Patient started on doxycycline by PCP. Patient reports minimal improvement in symptoms with doxycycline. Was evaluated at pulmonology office today and referred to ED for further evaluation. Patient notes that she has been pale for the past 1 week. She denies chest pain. No lightheadedness, dizziness, diaphoresis, syncopal events. She denies abdominal pain, nausea, vomiting, diarrhea. No bright red bleeding per rectum or dark tarry stools. Patient states that she takes Roberto back and body a few times per week. Denies any other recent illnesses, fevers, chills. No urinary symptoms. In the ED, labs show Hgb 4.5 and stool is heme positive. Patient is hemodynamically stable. She was given Protonix 40 mg IV and PRBC transfusion started. Allergies Allergy/AdvReac Type Severity Reaction Status Date / Time pantoprazole AdvReac Intermediate "HORRIBLE Verified 02/08/23 17:01 HEADACHES". Home Medications Medication Instructions Recorded Confirmed Type buspirone 15 mg tablet 15 mg PO TID 10/11/22 02/08/23 History carvedilol 6.25 mg tablet 6.25 mg PO BID 10/11/22 02/08/23 History rosuvastatin 10 mg tablet 10 mg PO DAILY 10/11/22 02/08/23 History apixaban 5 mg tablet (Eliquis) 5 mg PO Q12H #60 tabs 10/13/22 02/08/23 Rx famotidine 20 mg tablet 20 mg PO BID 02/08/23 02/08/23 History Past Med/Surg History Medical History Bipolar 1 disorder CKD (chronic kidney disease) stage 3, GFR 30-59 ml/min Dyslipidemia History of DVT (deep vein thrombosis) History of pulmonary embolism Hypertension Prediabetes Surgical History H/O bone graft femur fx with bone graft and pin, age 16 H/O breast biopsy 1988; benign History of partial hysterectomy History of tonsillectomy Family History Other Hypertension Ovarian cancer Pancreatic cancer Social History Smoking Status: Former smoker Tobacco Type: Cigarettes Second Hand Exposure: No; Do You Dip or Chew Tobacco: No; Tobacco Cessation Education Requested by Patient: No (quit 14 years ago) Hx Alcohol Use: No Hx Substance Use: No Preferred Language: [place] Communication Ability: Effective Visual Impairment: No Limitations Hearing Ability: Normal Dog Food Dough Mixer Required: No Beliefs That Will Affect Care: None Current Living Situation: Spouse current occupational status: retired Other Information That Helps Us Care for You: Yes (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) Feels Safe at Home: Yes Safety Concerns: Feels Safe At This Time Diet: regular during the past year weight has: remained stable Dental Care, Regularly: Yes Seatbelt Use: always Assistive Devices: Glasses Review of Systems Review of Systems: ROS per HPI, all other systems reviewed and negative Physical Exam Constitutional: WD/WN, vitals as above Eyes: PERRL, conjunctivae normal, anicteric sclerae ENMT: external ear and nose normal, oropharynx normal Respiratory: normal respiratory effort, lungs clear to auscultation Cardiovascular: Rate/Rhythm: regular rate and regular rhythm Vessels: normal peripheral pulses Extremities: no edema Gastrointestinal (Abdomen): normal bowel sounds, soft, nontender, no hepatosplenomegaly Musculoskeletal: no cyanosis or clubbing, extremities motor strength 5/5 Skin: no rashes, warm and dry Neurologic: PERRL, EOMI, accommodation nl, no face palsy, no dysarthria Psychiatric: A+Ox3, euthymic affect Results & Data Results & Data Vital Signs (Past 12 Hours) Vital Signs Temp Pulse Pulse Resp BP BP BP 02/08/23 19:50 36.7 C 78 20 164/75 H 02/08/23 18:50 36.7 C 77 22 185/89 H 02/08/23 20:00 36.6 C 78 18 164/65 H 02/08/23 19:25 36.8 C 80 20 194/75 H 02/08/23 19:07 36.7 C 69 18 194/73 H 02/08/23 18:45 36.7 C 82 14 202/75 H 02/08/23 18:20 36.7 C 79 20 181/91 H 02/08/23 18:05 36.8 C 81 19 156/91 H 02/08/23 17:31 80 20 02/08/23 17:31 148/73 H 02/08/23 17:30 79 18 02/08/23 17:02 156/79 H 02/08/23 17:02 78 17 02/08/23 17:01 9 L 02/08/23 16:30 79 24 02/08/23 16:00 80 17 02/08/23 17:47 37.0 C 76 22 149/88 H 02/08/23 16:06 75 02/08/23 17:02 80 14 156/79 H 02/08/23 15:52 02/08/23 15:50 02/08/23 15:50 78 20 132/91 02/08/23 13:37 36.5 C 74 18 118/54 L Pulse Ox O2 Del Method 02/08/23 19:50 97 02/08/23 18:50 98 02/08/23 20:00 98 Room Air 02/08/23 19:25 98 Room Air 02/08/23 19:07 99 Room Air 02/08/23 18:45 98 02/08/23 18:20 96 02/08/23 18:05 97 02/08/23 17:31 97 Room Air 02/08/23 17:31 02/08/23 17:30 97 Room Air 02/08/23 17:02 02/08/23 17:02 02/08/23 17:01 02/08/23 16:30 98 02/08/23 16:00 02/08/23 17:47 97 02/08/23 16:06 02/08/23 17:02 Room Air 02/08/23 15:52 Room Air 02/08/23 15:50 Room Air 02/08/23 15:50 100 Room Air 02/08/23 13:37 97 Room Air Laboratory Results Short CBC 02/08/23 Range/Units 14:50 WBC 9.57 (4.8-10.8) K/ul Hgb 4.5 L* (12.0-16.0) g/dl Hct 17.3 L* (37.0-47.0) % Plt Count 372 (130-400) K/uL BMP 02/08/23 14:50 Sodium 144 Potassium 3.3 L Chloride 114 H Carbon Dioxide 22 BUN 29 H Creatinine 1.48 H Glucose 151 H Calcium 9.2 Liver Function 02/08/23 Range/Units 14:50 Total Bilirubin 0.5 (0.2-1.0) mg/dl AST 9 L (13-39) U/L ALT 6 L (7-52) U/L Alkaline Phosphatase 127 H (34-104) U/L Albumin 4.1 (3.4-5.0) gm/dl Urine 02/08/23 Range/Units 17:08 Urine Color Yellow Urine Appearance Clear (Clear) Urine pH 5.5 (4.5-7.5) Ur Specific [place] 1.017 (1.000-1.030) Urine Protein Trace H (Negative) Urine Glucose (UA) Negative (Negative) Diagnostic Findings Chest X-Ray 02/08/23 13:38 XR chest 1V portable CLINICAL HISTORY: Dyspnea TECHNIQUE: Single frontal radiograph of the chest was obtained. Comparison: Comparison is made to chest radiograph 10/11/2022 FINDINGS: No lines and tubes are seen. The cardiomediastinal silhouette is normal. The lungs are clear. . Previously noted density in the right mid chest is no longer seen. No evidence of pleural effusion or pneumothorax. IMPRESSION: No acute chest disease. ACT 112: Negative or not required by law. Electronically signed by: Nba Lemus M.D. 02/08/2023 4:41 PM Code Status & VTE Plan Code Status Patient is a full code as per my discussion with her. VTE Prophylaxis Plan VTE Prophylaxis will be ordered: Yes (1) Anemia Anemia type: unspecified type Qualified Code(s): D64.9 - Anemia, unspecified
[2023-02-08] MEDS: carvediloL 6.25 MG TAB PO SCH (20:51)
[2023-02-08] MEDS ORDERED: POTASSIUM CHLORIDE CRTAB 20 MEQ TABCR PO STA (21:52)
[2023-02-09 01:25] LABS: Hematocrit (blood only) 22.1 % (37.0-47.0); Hemoglobin 6.8 g/dl (12.0-16.0)
[2023-02-09] MEDS ORDERED: SODIUM CHLORIDE 0.9% 250 ML IV PRN (02:05)
[2023-02-09 06:16] LABS: Hematocrit (blood only) 24.9 % (37.0-47.0); Hemoglobin 7.9 g/dl (12.0-16.0); Mean Corpuscular Hemoglobin 24.9 pg (25.0-34.0); Mean Corpuscular Hgb Conc 31.7 g/dL (32.0-36.0); Mean Corpuscular Volume 78.5 fL (80.0-100.0); Mean Platelet Volume 9.8 fL (9.4-12.4); Nucleated RBC # (auto) 0.29 K/uL (0-0.12); Nucleated RBC % (auto) 3.6 %; Platelet Count 231 K/uL (130-400); RDW Coefficient of Variation 18.6 % (11.5-14.5); RDW Standard Deviation 52.3 fL (36.4-46.3); Red Blood Count 3.17 M/uL (4.20-5.40)
[2023-02-09 06:37] LABS: BUN Creatinine Ratio 15.4 (10-20); Calcium 8.2 mg/dl (8.6-10.3); Creatinine Clr Calc Pharmacy 40.4 ml/min; Est GFR (African American) 47.5 ml/min; Potassium 3.6 mmol/L (3.5-5.1)
[2023-02-09] MEDS: PANTOprazole 40 MG in SYRINGE 0 ML IV SCH ×2 (08:07→19:44)
[2023-02-09] MEDS: busPIRone 15 MG TAB PO SCH ×3 (08:07→19:44)
[2023-02-09] MEDS: carvediloL 6.25 MG TAB PO SCH ×2 (08:08→19:44)
[2023-02-09] MEDS: ROSUVASTATIN CALCIUM 10 MG TAB PO SCH (08:08)
--- NOTE | 2023-02-09 08:33 | Gastrointestinal Consultation ---
Date of Consultation February 09, 2023 Assessment & Plan (1) Anemia: Pleasant 72 year old female with profound anemia and microcytic indices. She definitely needs evaluation with EGD and colonoscopy. She took her eliquis and since this is not an acute bleed I would prefer to give the eliquis time to wear off. I will plan EGD and colonoscopy on Saturday. She agrees History of Present Illness Reason for Consultation: anemia Attending Physician: Fabio Dias MD History of Present Illness 72 year old female who has been on eliquis for three months for blood clot who started feeling weak and tired about a week ago. She saw her doctor yesterday, was found to have hemoglobin of 4.5 and was sent for admission. She denies any history of bleeding. She will occasionally see bright red blood on the tissue or in her underclothes but she has external hemorrhoids. She denies any other bright red rectal bleeding. She has never seen black or black and tarry stools. She has no issues with her bowel movements. She denies heartburn or indigestion. She has no abdominal pain. She was told she had reflux by her oil processing technician yesterday but she has no symptoms of reflux. She says she has had a colonoscopy by [facility] over five years ago. She recently had a cologuard test done that was positive but has not arranged that colonoscopy yet. Allergies Allergy/AdvReac Type Severity Reaction Status Date / Time pantoprazole AdvReac Intermediate "HORRIBLE Verified 02/08/23 17:01 HEADACHES". Home Medications Medication Instructions Recorded Confirmed Type buspirone 15 mg tablet 15 mg PO TID 10/11/22 02/08/23 History carvedilol 6.25 mg tablet 6.25 mg PO BID 10/11/22 02/08/23 History rosuvastatin 10 mg tablet 10 mg PO DAILY 10/11/22 02/08/23 History apixaban 5 mg tablet (Eliquis) 5 mg PO Q12H #60 tabs 10/13/22 02/08/23 Rx famotidine 20 mg tablet 20 mg PO BID 02/08/23 02/08/23 History Patient History Medical History Bipolar 1 disorder CKD (chronic kidney disease) stage 3, GFR 30-59 ml/min Dyslipidemia History of DVT (deep vein thrombosis) History of pulmonary embolism Hypertension Prediabetes Surgical History H/O bone graft femur fx with bone graft and pin, age 16 H/O breast biopsy 1988; benign History of partial hysterectomy History of tonsillectomy Family History Other Hypertension Ovarian cancer Pancreatic cancer Social History Smoking Status: Former smoker Tobacco Type: Cigarettes Second Hand Exposure: No; Do You Dip or Chew Tobacco: No; Tobacco Cessation Education Requested by Patient: No (quit 14 years ago) Hx Alcohol Use: No Hx Substance Use: No Preferred Language: Macedonian Communication Ability: Effective Visual Impairment: No Limitations Hearing Ability: Normal Philanthropy Officer Required: No Beliefs That Will Affect Care: None Current Living Situation: Spouse current occupational status: retired Other Information That Helps Us Care for You: Yes (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) Feels Safe at Home: Yes Safety Concerns: Feels Safe At This Time Diet: regular during the past year weight has: remained stable Dental Care, Regularly: Yes Seatbelt Use: always Assistive Devices: Glasses Review of Systems Review of Systems: All systems reviewed & are unremarkable except as noted in HPI & below Physical Exam Constitutional: WD/WN, vitals as above no acute distress Eyes: PERRL, conjunctivae normal, anicteric sclerae ENMT: external ear and nose normal, oropharynx normal Neck: trachea midline, no thyromegaly Respiratory: normal respiratory effort, lungs clear to auscultation Cardiovascular: RRR, no murmur, no edema Gastrointestinal (Abdomen): normal bowel sounds, soft, nontender, no hepatosplenomegaly Musculoskeletal: Extremities: no cyanosis and no clubbing Skin: no rashes, warm and dry Neurologic: PERRL, EOMI, accommodation nl, no face palsy, no dysarthria Psychiatric: Orientation: alert and oriented x 3 Results & Data Vital Signs (Past 12 Hours) Vital Signs Temp Pulse Pulse Resp BP BP Pulse Ox 02/09/23 08:23 36.7 C 83 18 149/67 H 94 02/09/23 03:04 36.8 C 83 18 139/66 98 02/09/23 02:49 37 C 83 18 148/70 H 96 02/09/23 03:34 81 18 147/69 H 96 02/09/23 03:07 36.8 C 83 18 139/66 98 02/09/23 02:52 37.0 C 83 18 148/70 H 96 02/09/23 02:32 37.1 C 85 18 129/71 95 02/08/23 23:04 85 02/08/23 22:52 36.6 C 79 15 156/64 H 98 02/08/23 22:40 36.6 C 80 16 156/64 H 98 02/08/23 21:40 36.9 C 83 18 151/78 H 97 02/08/23 21:10 36.7 C 83 20 123/77 98 02/08/23 20:55 36.9 C 83 16 180/78 H 98 02/08/23 20:39 36.7 C 82 18 180/61 H 99 02/08/23 20:35 36.7 C 82 18 188/109 H 98 O2 Del Method 02/09/23 08:23 Room Air 02/09/23 03:04 02/09/23 02:49 02/09/23 03:34 02/09/23 03:07 Room Air 02/09/23 02:52 Room Air 02/09/23 02:32 02/08/23 23:04 02/08/23 22:52 02/08/23 22:40 02/08/23 21:40 02/08/23 21:10 02/08/23 20:55 02/08/23 20:39 02/08/23 20:35 Laboratory Results 02/09/23 02/09/23 02/09/23 Range/Units 05:37 05:37 05:37 WBC 8.00 (4.8-10.8) K/ul RBC 3.17 L (4.20-5.40) M/uL Hgb 7.9 L (12.0-16.0) g/dl Hct 24.9 L (37.0-47.0) % MCV 78.5 L D (80.0-100.0) fL MCH 24.9 L (25.0-34.0) pg MCHC 31.7 L D (32.0-36.0) g/dL RDW Std Deviation 52.3 H (36.4-46.3) fL RDW Coeff of Joanna 18.6 H (11.5-14.5) % Plt Count 231 (130-400) K/uL MPV 9.8 (9.4-12.4) fL Immature Gran % (Auto) % Neut % (Auto) % Lymph % (Auto) % [place] % (Auto) % Eos % (Auto) % Baso % (Auto) % Reticulocyte % (Auto) (0.5-2.0) % Neut # (Auto) (1.40-6.50) K/uL Lymph # (Auto) (1.2-3.4) K/uL [place] # (Auto) (0.11-0.59) K/uL Eos # (Auto) (0-0.50) K/uL Baso # (Auto) (0-0.2) K/uL Reticulocyte # (0.02-0.10) 10^6/uL Immature Gran # (Auto) (0.01-0.20) K/uL Absolute Nucleated RBC 0.29 H (0-0.12) K/uL Nucleated RBC % (auto) 3.6 % Polychromasia Hypochromasia Tear Drop Cells PT (9.0-12.0) Seconds INR (0.9-1.1) APTT (21.0-31.0) Seconds PTT Ratio D-Dimer (0-500) ug/L FEU Sodium 141 (136-145) mmol/L Potassium 3.6 (3.5-5.1) mmol/L Chloride 113 H (98-107) mmol/L Carbon Dioxide 20 L (21-32) mmol/L Anion Gap 8 (3-11) BUN 20 (6-23) mg/dl Creatinine 1.30 H (0.6-1.2) mg/dl Est Cr Clr Drug Dosing 40.4 Est GFR ( Amer) 47.5 ml/min Est GFR (Non-Af Amer) 41.0 ml/min BUN/Creatinine Ratio 15.4 (10-20) Glucose 92 (70-99(Fasting)) mg/dl Calcium 8.2 L (8.6-10.3) mg/dl Iron Pending Ferritin Pending Total Bilirubin (0.2-1.0) mg/dl AST (13-39) U/L ALT (7-52) U/L Alkaline Phosphatase (34-104) U/L Total Protein (6.0-8.3) gm/dl Albumin (3.4-5.0) gm/dl Globulin (2.5-4.0) gm/dl Albumin/Globulin Ratio (0.9-2) Vitamin B12 Folate Urine Color Urine Appearance (Clear) Urine pH (4.5-7.5) Ur Specific [place] (1.000-1.030) Urine Protein (Negative) Urine Glucose (UA) (Negative) Urine Ketones (Negative) Urine Blood (Negative) Urine Nitrite (Negative) Urine Bilirubin (Negative) Urine Urobilinogen (Negative) Ur Leukocyte Esterase (Negative) Urine WBC (Auto) (0-5) /hpf Urine RBC (Auto) (0-4) /hpf U Hyaline Cast (Auto) (0-5) /lpf U Epithel Cells (Auto) (0-5) /lpf Urine Bacteria (Auto) (Negative) Urine Yeast SARS-CoV-2, RNA, NAAT (NEGATIVE) Blood Type Blood Type Recheck Antibody Screen Crossmatch 02/09/23 02/08/23 02/08/23 Range/Units 00:56 17:08 16:12 WBC (4.8-10.8) K/ul RBC (4.20-5.40) M/uL Hgb 6.8 L* (12.0-16.0) g/dl Hct 22.1 L (37.0-47.0) % MCV (80.0-100.0) fL MCH (25.0-34.0) pg MCHC (32.0-36.0) g/dL RDW Std Deviation (36.4-46.3) fL RDW Coeff of Joanna (11.5-14.5) % Plt Count (130-400) K/uL MPV (9.4-12.4) fL Immature Gran % (Auto) % Neut % (Auto) % Lymph % (Auto) % [place] % (Auto) % Eos % (Auto) % Baso % (Auto) % Reticulocyte % (Auto) (0.5-2.0) % Neut # (Auto) (1.40-6.50) K/uL Lymph # (Auto) (1.2-3.4) K/uL [place] # (Auto) (0.11-0.59) K/uL Eos # (Auto) (0-0.50) K/uL Baso # (Auto) (0-0.2) K/uL Reticulocyte # (0.02-0.10) 10^6/uL Immature Gran # (Auto) (0.01-0.20) K/uL Absolute Nucleated RBC (0-0.12) K/uL Nucleated RBC % (auto) % Polychromasia Hypochromasia Tear Drop Cells PT (9.0-12.0) Seconds INR (0.9-1.1) APTT (21.0-31.0) Seconds PTT Ratio D-Dimer (0-500) ug/L FEU Sodium (136-145) mmol/L Potassium (3.5-5.1) mmol/L Chloride (98-107) mmol/L Carbon Dioxide (21-32) mmol/L Anion Gap (3-11) BUN (6-23) mg/dl Creatinine (0.6-1.2) mg/dl Est Cr Clr Drug Dosing Est GFR ( Amer) ml/min Est GFR (Non-Af Amer) ml/min BUN/Creatinine Ratio (10-20) Glucose (70-99(Fasting)) mg/dl Calcium (8.6-10.3) mg/dl Iron Ferritin Total Bilirubin (0.2-1.0) mg/dl AST (13-39) U/L ALT (7-52) U/L Alkaline Phosphatase (34-104) U/L Total Protein (6.0-8.3) gm/dl Albumin (3.4-5.0) gm/dl Globulin (2.5-4.0) gm/dl Albumin/Globulin Ratio (0.9-2) Vitamin B12 Folate Urine Color Yellow Urine Appearance Clear (Clear) Urine pH 5.5 (4.5-7.5) Ur Specific [place] 1.017 (1.000-1.030) Urine Protein Trace H (Negative) Urine Glucose (UA) Negative (Negative) Urine Ketones Negative (Negative) Urine Blood Trace H (Negative) Urine Nitrite Negative (Negative) Urine Bilirubin Negative (Negative) Urine Urobilinogen Negative (Negative) Ur Leukocyte Esterase 1+ H (Negative) Urine WBC (Auto) 10-30 H (0-5) /hpf Urine RBC (Auto) 5-10 H (0-4) /hpf U Hyaline Cast (Auto) 5-10 H (0-5) /lpf U Epithel Cells (Auto) >30 H (0-5) /lpf Urine Bacteria (Auto) Negative (Negative) Urine Yeast Not Reportable SARS-CoV-2, RNA, NAAT (NEGATIVE) Blood Type Blood Type Recheck AB Positive Antibody Screen Crossmatch 02/08/23 02/08/23 02/08/23 Range/Units 15:57 15:55 14:50 WBC (4.8-10.8) K/ul RBC (4.20-5.40) M/uL Hgb (12.0-16.0) g/dl Hct (37.0-47.0) % MCV (80.0-100.0) fL MCH (25.0-34.0) pg MCHC (32.0-36.0) g/dL RDW Std Deviation (36.4-46.3) fL RDW Coeff of Joanna (11.5-14.5) % Plt Count (130-400) K/uL MPV (9.4-12.4) fL Immature Gran % (Auto) % Neut % (Auto) % Lymph % (Auto) % [place] % (Auto) % Eos % (Auto) % Baso % (Auto) % Reticulocyte % (Auto) (0.5-2.0) % Neut # (Auto) (1.40-6.50) K/uL Lymph # (Auto) (1.2-3.4) K/uL [place] # (Auto) (0.11-0.59) K/uL Eos # (Auto) (0-0.50) K/uL Baso # (Auto) (0-0.2) K/uL Reticulocyte # (0.02-0.10) 10^6/uL Immature Gran # (Auto) (0.01-0.20) K/uL Absolute Nucleated RBC (0-0.12) K/uL Nucleated RBC % (auto) % Polychromasia Hypochromasia Tear Drop Cells PT (9.0-12.0) Seconds INR (0.9-1.1) APTT (21.0-31.0) Seconds PTT Ratio D-Dimer (0-500) ug/L FEU Sodium (136-145) mmol/L Potassium (3.5-5.1) mmol/L Chloride (98-107) mmol/L Carbon Dioxide (21-32) mmol/L Anion Gap (3-11) BUN (6-23) mg/dl Creatinine (0.6-1.2) mg/dl Est Cr Clr Drug Dosing Est GFR ( Amer) ml/min Est GFR (Non-Af Amer) ml/min BUN/Creatinine Ratio (10-20) Glucose (70-99(Fasting)) mg/dl Calcium (8.6-10.3) mg/dl Iron Ferritin Total Bilirubin (0.2-1.0) mg/dl AST (13-39) U/L ALT (7-52) U/L Alkaline Phosphatase (34-104) U/L Total Protein (6.0-8.3) gm/dl Albumin (3.4-5.0) gm/dl Globulin (2.5-4.0) gm/dl Albumin/Globulin Ratio (0.9-2) Vitamin B12 Pending Folate Pending Urine Color Urine Appearance (Clear) Urine pH (4.5-7.5) Ur Specific [place] (1.000-1.030) Urine Protein (Negative) Urine Glucose (UA) (Negative) Urine Ketones (Negative) Urine Blood (Negative) Urine Nitrite (Negative) Urine Bilirubin (Negative) Urine Urobilinogen (Negative) Ur Leukocyte Esterase (Negative) Urine WBC (Auto) (0-5) /hpf Urine RBC (Auto) (0-4) /hpf U Hyaline Cast (Auto) (0-5) /lpf U Epithel Cells (Auto) (0-5) /lpf Urine Bacteria (Auto) (Negative) Urine Yeast SARS-CoV-2, RNA, NAAT NEGATIVE (NEGATIVE) Blood Type AB Positive Blood Type Recheck Antibody Screen NEGATIVE Crossmatch See Detail 02/08/23 02/08/23 02/08/23 Range/Units 14:50 14:50 14:50 WBC 9.57 (4.8-10.8) K/ul RBC 2.36 L (4.20-5.40) M/uL Hgb 4.5 L* (12.0-16.0) g/dl Hct 17.3 L* (37.0-47.0) % MCV 73.3 L (80.0-100.0) fL MCH 19.1 L (25.0-34.0) pg MCHC 26.0 L (32.0-36.0) g/dL RDW Std Deviation 52.0 H (36.4-46.3) fL RDW Coeff of Joanna 19.8 H (11.5-14.5) % Plt Count 372 (130-400) K/uL MPV 10.2 (9.4-12.4) fL Immature Gran % (Auto) 0.5 % Neut % (Auto) 77.1 % Lymph % (Auto) 16.2 % [place] % (Auto) 3.8 % Eos % (Auto) 1.5 % Baso % (Auto) 0.9 % Reticulocyte % (Auto) 2.1 H (0.5-2.0) % Neut # (Auto) 7.38 H (1.40-6.50) K/uL Lymph # (Auto) 1.55 (1.2-3.4) K/uL [place] # (Auto) 0.36 (0.11-0.59) K/uL Eos # (Auto) 0.14 (0-0.50) K/uL Baso # (Auto) 0.09 (0-0.2) K/uL Reticulocyte # 0.05 (0.02-0.10) 10^6/uL Immature Gran # (Auto) 0.05 (0.01-0.20) K/uL Absolute Nucleated RBC 0.26 H (0-0.12) K/uL Nucleated RBC % (auto) 2.7 % Polychromasia 1+ Hypochromasia Present Tear Drop Cells 1+ PT 13.8 H (9.0-12.0) Seconds INR 1.3 H (0.9-1.1) APTT 25.2 (21.0-31.0) Seconds PTT Ratio 0.9 D-Dimer < 190 (0-500) ug/L FEU Sodium 144 (136-145) mmol/L Potassium 3.3 L (3.5-5.1) mmol/L Chloride 114 H (98-107) mmol/L Carbon Dioxide 22 (21-32) mmol/L Anion Gap 8 (3-11) BUN 29 H (6-23) mg/dl Creatinine 1.48 H (0.6-1.2) mg/dl Est Cr Clr Drug Dosing Not Reportable Est GFR ( Amer) 40.6 ml/min Est GFR (Non-Af Amer) 35.0 ml/min BUN/Creatinine Ratio 19.6 (10-20) Glucose 151 H (70-99(Fasting)) mg/dl Calcium 9.2 (8.6-10.3) mg/dl Iron Ferritin Total Bilirubin 0.5 (0.2-1.0) mg/dl AST 9 L (13-39) U/L ALT 6 L (7-52) U/L Alkaline Phosphatase 127 H (34-104) U/L Total Protein 6.5 (6.0-8.3) gm/dl Albumin 4.1 (3.4-5.0) gm/dl Globulin 2.4 L (2.5-4.0) gm/dl Albumin/Globulin Ratio 1.7 (0.9-2) Vitamin B12 Folate Urine Color Urine Appearance (Clear) Urine pH (4.5-7.5) Ur Specific [place] (1.000-1.030) Urine Protein (Negative) Urine Glucose (UA) (Negative) Urine Ketones (Negative) Urine Blood (Negative) Urine Nitrite (Negative) Urine Bilirubin (Negative) Urine Urobilinogen (Negative) Ur Leukocyte Esterase (Negative) Urine WBC (Auto) (0-5) /hpf Urine RBC (Auto) (0-4) /hpf U Hyaline Cast (Auto) (0-5) /lpf U Epithel Cells (Auto) (0-5) /lpf Urine Bacteria (Auto) (Negative) Urine Yeast SARS-CoV-2, RNA, NAAT (NEGATIVE) Blood Type Blood Type Recheck Antibody Screen Crossmatch Diagnostic Findings Chest X-Ray 02/08/23 13:38 XR chest 1V portable CLINICAL HISTORY: Dyspnea TECHNIQUE: Single frontal radiograph of the chest was obtained. Comparison: Comparison is made to chest radiograph 10/11/2022 FINDINGS: No lines and tubes are seen. The cardiomediastinal silhouette is normal. The lungs are clear. . Previously noted density in the right mid chest is no longer seen. No evidence of pleural effusion or pneumothorax. IMPRESSION: No acute chest disease. ACT 112: Negative or not required by law. Electronically signed by: Nba Lemus M.D. 02/08/2023 4:41 PM (1) Anemia Anemia type: unspecified type Qualified Code(s): D64.9 - Anemia, unspecified
[2023-02-09] MEDS: IRON SUCROSE 300 MG in SODIUM CHLORIDE 0.9% 250 ML IV SCH (08:53)
[2023-02-09 10:00] LABS: Ferritin 9.4 ng/ml (8-388)
--- NOTE | 2023-02-09 15:27 | Hospitalist Progress Note ---
Date of Service February 09, 2023 Assessment & Plan (1) Symptomatic anemia: (2) Chronic blood loss anemia: (3) History of pulmonary embolism: (4) History of DVT (deep vein thrombosis): (5) CKD (chronic kidney disease) stage 3, GFR 30-59 ml/min: Plan 72-year-old female with history of DVT/PE diagnosed October 2022 on Eliquis since then presented to ED with worsening shortness of breath over the past month and found to have symptomatic anemia with hemoglobin of 4.5 status post 3 units PRBC transfusion Symptomatic anemia due to chronic blood loss, iron deficiency -Baseline Hb of >12. On presentation 4.5->6.8->7.9. Ferritin 9.4, Folate normal, B12 low normal. Hold all anticoagulation -Suspected due to chronic blood loss in setting of anticoagulation with Eliquis for DVT PE -Status post PRBC transfusion with appropriate rise in hemoglobin -Continue to follow H&H -Transfuse IV iron D1/3, oral B12 supplementation, continue PPI -Seen by GI-plan for EGD/colonoscopy on Saturday History of DVT/PE-on Eliquis currently on hold. D-dimer within normal limits and is reassuring, however will consider CTA chest to definitively ensure resolution of her clots as discussed with patient,lino when we are planning to discontinue her anticoag. CKD3b- Cr at baseline of 1.3 Dyslipidemia- on statin Bipolar 1- on buspar DVT ppx- SCD. Chemoppx C/I in setting of anemia requiring transfusion Dispo- EGD/colonoscopy on Saturday Updated at bedside Admission and Anticipated Discharge Date Admission Date: February 08, 2023 Subjective Patient was seen and examined at bedside. Denies any acute active bleeding. Still feels better after blood transfusion. No fever, chills, chest pain, nausea or vomiting. Review of Systems Review of Systems: All systems reviewed & are unremarkable except as noted in Subjective Physical Exam Physical Exam: General: Sitting comfortably in bed, not in distress, on room air HEENT: EOMI, EDGAR, MMM Chest: Clear breath sounds bilaterally, no wheezes or crackles CVS: Regular rate and rhythm, normal heart sounds, no murmur Abdomen: Soft, non tender, not distended, normal bowel sounds Neuro: Awake, alert, oriented, conversing well, non focal Extremities: No cyanosis, clubbing or edema Results & Data Results & Data Vital Signs (Past 12 Hours) Vital Signs Temp Pulse Pulse Resp BP BP Pulse Ox 02/09/23 11:47 36.7 C 74 20 149/61 H 93 02/09/23 08:33 80 02/09/23 08:23 36.7 C 83 18 149/67 H 94 02/09/23 03:34 81 18 147/69 H 96 O2 Del Method 02/09/23 11:47 Room Air 02/09/23 08:33 02/09/23 08:23 Room Air 02/09/23 03:34 Laboratory Results Short CBC 02/08/23 02/09/23 02/09/23 Range/Units 14:50 00:56 05:37 WBC 9.57 8.00 (4.8-10.8) K/ul Hgb 4.5 L* 6.8 L* 7.9 L (12.0-16.0) g/dl Hct 17.3 L* 22.1 L 24.9 L (37.0-47.0) % Plt Count 372 231 (130-400) K/uL BMP 02/08/23 02/09/23 14:50 05:37 Sodium 144 141 Potassium 3.3 L 3.6 Chloride 114 H 113 H Carbon Dioxide 22 20 L BUN 29 H 20 Creatinine 1.48 H 1.30 H Glucose 151 H 92 Calcium 9.2 8.2 L Liver Function 02/08/23 Range/Units 14:50 Total Bilirubin 0.5 (0.2-1.0) mg/dl AST 9 L (13-39) U/L ALT 6 L (7-52) U/L Alkaline Phosphatase 127 H (34-104) U/L Albumin 4.1 (3.4-5.0) gm/dl Urine 02/08/23 Range/Units 17:08 Urine Color Yellow Urine Appearance Clear (Clear) Urine pH 5.5 (4.5-7.5) Ur Specific [place] 1.017 (1.000-1.030) Urine Protein Trace H (Negative) Urine Glucose (UA) Negative (Negative) Medications Administered Current Inpatient Medications Acetaminophen (Acetaminophen 325 Mg Tab) 650 mg PO Q4H PRN PRN Reason: Pain or Fever Stop: 03/10/23 19:30 Buspirone HCl (Buspirone 15 Mg Tab) 15 mg PO TID [facility] Stop: 03/10/23 20:59 Last Admin: 02/09/23 13:17 Dose: 15 mg Carvedilol (Carvedilol 6.25 Mg Tab) 6.25 mg PO BID LIS Stop: 03/10/23 20:59 Last Admin: 02/09/23 08:08 Dose: 6.25 mg Pantoprazole Sodium 40 mg/ (Syringe) 10 mls @ 5 mls/min IV BID LIS Stop: 03/10/23 20:59 Last Admin: 02/09/23 08:07 Dose: 5 mls/min Iron Sucrose 300 mg/ Sodium (Chloride) 265 mls @ 176.667 mls/hr IV DAILY LIS Stop: 02/11/23 10:29 Last Infusion: 02/09/23 10:26 Dose: Infused Rosuvastatin Calcium (Rosuvastatin Calcium 10 Mg Tab) 10 mg PO DAILY LIS Stop: 03/11/23 08:59 Last Admin: 02/09/23 08:08 Dose: 10 mg
[2023-02-09] MEDS: CYANOCOBALAMIN (B-12) 500 MCG TABLET PO SCH (16:20)
[2023-02-10 06:10] LABS: Hematocrit (blood only) 24.7 % (37.0-47.0); Hemoglobin 7.7 g/dl (12.0-16.0); Mean Corpuscular Hemoglobin 24.6 pg (25.0-34.0); Mean Corpuscular Hgb Conc 31.2 g/dL (32.0-36.0); Mean Corpuscular Volume 78.9 fL (80.0-100.0); Mean Platelet Volume 9.9 fL (9.4-12.4); Nucleated RBC # (auto) 0.21 K/uL (0-0.12); Nucleated RBC % (auto) 3.2 %; Platelet Count 242 K/uL (130-400); RDW Coefficient of Variation 18.8 % (11.5-14.5); Red Blood Count 3.13 M/uL (4.20-5.40)
[2023-02-10 06:26] LABS: BUN Creatinine Ratio 8.2 (10-20); Calcium 8.4 mg/dl (8.6-10.3); Creatinine Clr Calc Pharmacy 41.7 ml/min; Est GFR (African American) 51.3 ml/min; Est GFR (Non-African American) 44.2 ml/min; Magnesium 1.8 mg/dl (1.7-2.4); Potassium 3.4 mmol/L (3.5-5.1)
--- NOTE | 2023-02-10 06:36 | Gastroenterology Progress Note ---
Date of Service February 10, 2023 Assessment & Plan (1) Symptomatic anemia: Plan: Discussed procedure and risks for EGD and colonoscopy with patient. she agrees. Will get her ready for tomorrow Admission and Anticipated Discharge Date Admission Date: February 08, 2023 Subjective Feeling well. Agreeable to procedures tomorrow Physical Exam Physical Exam: She looks well Results & Data Vital Signs (Past 12 Hours) Vital Signs Temp Pulse Pulse Resp BP Pulse Ox Pulse Ox 02/10/23 04:00 36.6 C 75 18 138/67 93 02/09/23 23:15 66 02/10/23 00:00 36.9 C 74 16 137/67 95 02/09/23 19:31 94 02/09/23 19:31 36.7 C 80 18 180/81 H 94 O2 Del Method O2 Del Method 02/10/23 04:00 Room Air 02/09/23 23:15 02/10/23 00:00 Room Air 02/09/23 19:31 Room Air 02/09/23 19:31 Room Air
[2023-02-10] MEDS: carvediloL 6.25 MG TAB PO SCH ×2 (09:40→19:46)
[2023-02-10] MEDS: ROSUVASTATIN CALCIUM 10 MG TAB PO SCH (09:40)
[2023-02-10] MEDS: POTASSIUM CHLORIDE CRTAB 20 MEQ TABCR PO SCH (09:40)
[2023-02-10] MEDS: CYANOCOBALAMIN (B-12) 500 MCG TABLET PO SCH (09:40)
[2023-02-10] MEDS: busPIRone 15 MG TAB PO SCH ×3 (09:40→19:45)
[2023-02-10] MEDS: IRON SUCROSE 300 MG in SODIUM CHLORIDE 0.9% 250 ML IV SCH (09:40)
[2023-02-10] MEDS: PANTOprazole 40 MG in SYRINGE 0 ML IV SCH ×2 (09:40→19:45)
--- NOTE | 2023-02-10 11:58 | Hospitalist Progress Note ---
Date of Service February 10, 2023 Assessment & Plan (1) Symptomatic anemia: (2) Chronic blood loss anemia: (3) History of pulmonary embolism: (4) History of DVT (deep vein thrombosis): (5) CKD (chronic kidney disease) stage 3, GFR 30-59 ml/min: Plan 72-year-old female with history of DVT/PE diagnosed October 2022 on Eliquis since then presented to ED with worsening shortness of breath over the past month and found to have symptomatic anemia with hemoglobin of 4.5 status post 3 units PRBC transfusion Symptomatic anemia due to chronic blood loss, iron deficiency -Baseline Hb of >12. On presentation 4.5->6.8->7.9->7.7. Ferritin 9.4, Folate normal, B12 low normal. Hold all anticoagulation -Suspected due to chronic blood loss in setting of anticoagulation with Eliquis for DVT PE -Status post PRBC transfusion with appropriate rise in hemoglobin and has remained stable -Continue to follow H&H daily -Transfuse IV iron D2/3, oral B12 supplementation, continue PPI -Seen by GI-plan for EGD/colonoscopy on Saturday. Bowel prep today History of DVT/PE-on Eliquis currently on hold. D-dimer within normal limits and is reassuring. CTA chest pending- if negative, it will be reasonable to discontinue anticoag completely with close follow up with PCP as OP. Discussed with patient/family at bedside who agree. CKD3b- Cr at baseline of 1.3 Hypokalemia- mild, replete, recheck in am Dyslipidemia- on statin Bipolar 1- on buspar DVT ppx- SCD. Chemoppx C/I in setting of anemia requiring transfusion Dispo- EGD/colonoscopy tomorrow Updated at bedside Admission and Anticipated Discharge Date Admission Date: February 08, 2023 Subjective Patient was seen and examined at bedside in presence of her . She feels better. She denies any more shortness of breath. Denies any chest pain, fever, chills, nausea or vomiting. Denies any bleeding or bloody bowel movements. Review of Systems Review of Systems: All systems reviewed & are unremarkable except as noted in Subjective Physical Exam Physical Exam: General: Sitting comfortably in bed, not in distress, on room air HEENT: EOMI, EDGAR, MMM Chest: Clear breath sounds bilaterally, no wheezes or crackles CVS: Regular rate and rhythm, normal heart sounds, no murmur Abdomen: Soft, non tender, not distended, normal bowel sounds Neuro: Awake, alert, oriented, conversing well, non focal Extremities: No cyanosis, clubbing or edema Results & Data Results & Data Vital Signs (Past 12 Hours) Vital Signs Temp Pulse Pulse Resp BP Pulse Ox O2 Del Method 02/10/23 10:58 36.8 C 69 18 144/79 H 93 Room Air 02/10/23 10:15 69 02/10/23 07:00 36.6 C 86 20 155/77 H 92 Room Air 02/10/23 04:00 36.6 C 75 18 138/67 93 Room Air 02/10/23 00:00 36.9 C 74 16 137/67 95 Room Air Laboratory Results Short CBC 02/10/23 Range/Units 05:29 WBC 6.50 (4.8-10.8) K/ul Hgb 7.7 L (12.0-16.0) g/dl Hct 24.7 L (37.0-47.0) % Plt Count 242 (130-400) K/uL [facility] 02/10/23 05:29 Sodium 145 Potassium 3.4 L Chloride 118 H Carbon Dioxide 20 L BUN 10 Creatinine 1.22 H Glucose 88 Calcium 8.4 L Medications Administered Current Inpatient Medications Acetaminophen (Acetaminophen 325 Mg Tab) 650 mg PO Q4H PRN PRN Reason: Pain or Fever Stop: 03/10/23 19:30 Last Admin: 02/10/23 09:40 Dose: 650 mg Buspirone HCl (Buspirone 15 Mg Tab) 15 mg PO TID [facility] Stop: 03/10/23 20:59 Last Admin: 02/10/23 09:40 Dose: 15 mg Carvedilol (Carvedilol 6.25 Mg Tab) 6.25 mg PO BID [facility] Stop: 03/10/23 20:59 Last Admin: 02/10/23 09:40 Dose: 6.25 mg Cyanocobalamin (Cyanocobalamin (B-12) 500 Mcg Tablet) 500 mcg PO QAM [facility] Stop: 03/11/23 15:29 Last Admin: 02/10/23 09:40 Dose: 500 mcg Pantoprazole Sodium 40 mg/ (Syringe) 10 mls @ 5 mls/min IV BID [facility] Stop: 03/10/23 20:59 Last Admin: 02/10/23 09:40 Dose: 5 mls/min Iron Sucrose 300 mg/ Sodium (Chloride) 265 mls @ 176.667 mls/hr IV DAILY [facility] Stop: 02/11/23 10:29 Last Infusion: 02/10/23 11:17 Dose: Infused Polyethylene Glycol/Electrolytes (Lavage Solution 4000ml) 8 dose PO TODAY@,18 [facility] Stop: 02/11/23 06:01 Potassium Chloride (Potassium Chloride Crtab 20 Meq Tabcr) 40 meq PO DAILY [facility] Stop: 03/12/23 08:59 Last Admin: 02/10/23 09:40 Dose: 40 meq Rosuvastatin Calcium (Rosuvastatin Calcium 10 Mg Tab) 10 mg PO DAILY [facility] Stop: 03/11/23 08:59 Last Admin: 02/10/23 09:40 Dose: 10 mg
[2023-02-10] MEDS ORDERED: LIDOCAINE 5% OINT 30 GM TUBE EXT PRN (19:41)
[2023-02-10] MEDS: LAVAGE SOLUTION 4000ML PO SCH (19:44)
[2023-02-11 05:23] LABS: Hematocrit (blood only) 25.4 % (37.0-47.0); Hemoglobin 7.8 g/dl (12.0-16.0); Mean Corpuscular Hemoglobin 24.8 pg (25.0-34.0); Mean Corpuscular Hgb Conc 30.7 g/dL (32.0-36.0); Mean Corpuscular Volume 80.6 fL (80.0-100.0); Mean Platelet Volume 10.8 fL (9.4-12.4); Nucleated RBC # (auto) 0.17 K/uL (0-0.12); Nucleated RBC % (auto) 2.3 %; Platelet Count 268 K/uL (130-400); RDW Coefficient of Variation 20.4 % (11.5-14.5); RDW Standard Deviation 57.7 fL (36.4-46.3); Red Blood Count 3.15 M/uL (4.20-5.40); White Blood Count 7.36 K/ul (4.8-10.8)
[2023-02-11 05:34] LABS: BUN Creatinine Ratio 4.3 (10-20); Calcium 8.2 mg/dl (8.6-10.3); Creatinine Clr Calc Pharmacy 44.2 ml/min; Est GFR (Non-African American) 47.5 ml/min; Potassium 3.4 mmol/L (3.5-5.1)
--- NOTE | 2023-02-11 05:35 | Electrocardiogram Report ---
Test Reason : Blood Pressure : / mmHG Vent. Rate : 068 BPM Atrial Rate : 068 BPM P-R Int : 164 ms QRS Dur : 078 ms QT Int : 436 ms P-R-T Axes : 062 050 069 degrees QTc Int : 463 ms Normal sinus rhythm Normal ECG When compared with ECG of 11-OCT-2022 11:02, Criteria for Inferior infarct are no longer Present ST no longer depressed in Lateral leads T wave inversion no longer evident in Anterolateral leads Confirmed by Tyrell Gee ([id number]) on 02/11/2023 5:35:00 AM Referred By: REFERRED SELF Confirmed By:Tyrell Gee
[2023-02-11] MEDS: LAVAGE SOLUTION 4000ML PO SCH (06:37)
[2023-02-11] MEDS: PANTOprazole 40 MG in SYRINGE 0 ML IV SCH (08:02)
[2023-02-11] MEDS: IRON SUCROSE 300 MG in SODIUM CHLORIDE 0.9% 250 ML IV SCH (08:02)
[2023-02-11] MEDS: ROSUVASTATIN CALCIUM 10 MG TAB PO SCH (08:03)
[2023-02-11] MEDS: busPIRone 15 MG TAB PO SCH ×2 (08:03→13:16)
[2023-02-11] MEDS: POTASSIUM CHLORIDE CRTAB 20 MEQ TABCR PO SCH (08:03)
[2023-02-11] MEDS: carvediloL 6.25 MG TAB PO SCH (08:04)
[2023-02-11] MEDS: CYANOCOBALAMIN (B-12) 500 MCG TABLET PO SCH (08:04)
--- NOTE | 2023-02-11 08:36 | Anesthesiology Consultation ---
Date of Service February 11, 2023 Assessment & Plan (1) Encounter for pre-operative examination: Chart Review Chart Review: Acceptable Risk for Surgery, Patient NOT seen in Pre Admission Testing and charge entry initiated Consults Requested none Proposed Anesthesia Anesthesia Type: MAC History Surgery Operation Date: 02/11/23 16:30 Proposed Procedures p Colonoscopy EGD Dr Hennessy - Mindy Hennessy, DO Height/Weight Height: 5 ft 3.5 in Weight: 87.8 kg Allergies Allergy/AdvReac Type Severity Reaction Status Date / Time No Known Allergies Allergy Unverified 02/10/23 10:31 Medications Home Medications Medication Instructions Recorded Confirmed Last Taken buspirone 15 mg tablet 15 mg PO TID 10/11/22 02/08/23 02/08/23 08:00 carvedilol 6.25 mg tablet 6.25 mg PO BID 10/11/22 02/08/23 02/08/23 08:00 rosuvastatin 10 mg tablet 10 mg PO DAILY 10/11/22 02/08/23 02/08/23 apixaban 5 mg tablet (Eliquis) 5 mg PO Q12H #60 tabs 10/13/22 02/08/23 02/08/23 08:00 famotidine 20 mg tablet 20 mg PO BID 02/08/23 02/08/23 02/08/23 08:00 Active Medications Generic Name Dose Route Start Last Admin Trade Name Freq PRN Reason Stop Dose Admin Acetaminophen 650 mg 02/08/23 19:31 02/10/23 09:40 Acetaminophen 325 Mg Tab PO 03/10/23 19:30 650 mg Q4H PRN Administration Pain or Fever Buspirone HCl 15 mg 02/08/23 21:00 02/11/23 08:03 Buspirone 15 Mg Tab PO 03/10/23 20:59 15 mg TID LIS Administration Carvedilol 6.25 mg 02/08/23 21:00 02/11/23 08:04 Carvedilol 6.25 Mg Tab PO 03/10/23 20:59 6.25 mg BID LIS Administration Cyanocobalamin 500 mcg 02/09/23 15:30 02/11/23 08:04 Cyanocobalamin (B-12) 500 Mcg Tablet PO 03/11/23 15:29 500 mcg QAM LIS Administration Pantoprazole Sodium 40 mg/ 10 mls @ 5 mls/min 02/08/23 21:00 02/11/23 08:02 Syringe IV 03/10/23 20:59 5 mls/min BID LIS Administration Iron Sucrose 300 mg/ Sodium 265 mls @ 176.667 mls/hr 02/09/23 09:00 02/11/23 08:02 Chloride IV 02/11/23 10:29 176 mls/hr DAILY LIS Administration Lidocaine 1 appln 02/10/23 19:41 02/10/23 22:18 Lidocaine 5% Oint 30 Gm Tube EXT 03/12/23 19:40 1 appln TID PRN Administration painful hemorrhoid Potassium Chloride 40 meq 02/10/23 09:00 02/11/23 08:03 Potassium Chloride Crtab 20 Meq Tabcr PO 03/12/23 08:59 40 meq DAILY LIS Administration Rosuvastatin Calcium 10 mg 02/09/23 09:00 02/11/23 08:03 Rosuvastatin Calcium 10 Mg Tab PO 03/11/23 08:59 10 mg DAILY LIS Administration Past Medical History Medical History (Updated 02/11/23 @ 08:41 by Rom Reddy MD) Bipolar 1 disorder CKD (chronic kidney disease) stage 3, GFR 30-59 ml/min Dyslipidemia Encounter for pre-operative examination History of DVT (deep vein thrombosis) History of pulmonary embolism Hypertension Prediabetes Past Family History Family History Other Hypertension Ovarian cancer Pancreatic cancer Past Surgical History Surgical History H/O bone graft femur fx with bone graft and pin, age 16 H/O breast biopsy 1988; benign History of partial hysterectomy History of tonsillectomy Social History Smoking Status: Former smoker tobacco type: cigarettes Do You Dip or Chew Tobacco: No Hx Alcohol Use: No Hx Substance Use: No Physical Exam Vital Signs Last Vital Signs Temp 36.6 C 02/11/23 07:36 Pulse 64 02/11/23 07:36 Resp 16 02/11/23 07:36 BP 164/70 H 02/11/23 07:36 Pulse Ox 97 02/11/23 07:36 O2 Del Method Room Air 02/11/23 07:36 Testing Laboratory Results 02/11/23 04:23 02/11/23 04:23 PT 13.8 Seconds (9.0-12.0) H 02/08/23 14:50 INR 1.3 (0.9-1.1) H 02/08/23 14:50 APTT 25.2 Seconds (21.0-31.0) 02/08/23 14:50 Urine Color Yellow 02/08/23 17:08 Urine Appearance Clear (Clear) 02/08/23 17:08 Urine pH 5.5 (4.5-7.5) 02/08/23 17:08 Ur Specific [place] 1.017 (1.000-1.030) 02/08/23 17:08 Urine Protein Trace (Negative) H 02/08/23 17:08 Urine Glucose (UA) Negative (Negative) 02/08/23 17:08 Urine Ketones Negative (Negative) 02/08/23 17:08 Urine Nitrite Negative (Negative) 02/08/23 17:08 Ur Leukocyte Esterase 1+ (Negative) H 02/08/23 17:08 Urine WBC (Auto) 10-30 /hpf (0-5) H 02/08/23 17:08 Urine RBC (Auto) 5-10 /hpf (0-4) H 02/08/23 17:08 U Hyaline Cast (Auto) 5-10 /lpf (0-5) H 02/08/23 17:08 U Epithel Cells (Auto) >30 /lpf (0-5) H 02/08/23 17:08 Urine Bacteria (Auto) Negative (Negative) 02/08/23 17:08 Blood Type AB Positive 02/08/23 15:57 Antibody Screen NEGATIVE 02/08/23 15:57 02/08/23 17:08 Urine Culture - Preliminary Urine,Clean Catch Escherichia coli Gamma strep not enterococcus Electrocardiogram Date: 02/08/23 Test Reason : Blood Pressure : / mmHG Vent. Rate : 068 BPM Atrial Rate : 068 BPM P-R Int : 164 ms QRS Dur : 078 ms QT Int : 436 ms P-R-T Axes : 062 050 069 degrees QTc Int : 463 ms Normal sinus rhythm Normal ECG When compared with ECG of 11-OCT-2022 11:02, Criteria for Inferior infarct are no longer Present ST no longer depressed in Lateral leads T wave inversion no longer evident in Anterolateral leads Confirmed by Tyrell Gee ([id number]) on 02/11/2023 5:35:00 AM Chest X-Ray Date: 02/08/23 XR chest 1V portable CLINICAL HISTORY: Dyspnea TECHNIQUE: Single frontal radiograph of the chest was obtained. Comparison: Comparison is made to chest radiograph 10/11/2022 FINDINGS: No lines and tubes are seen. The cardiomediastinal silhouette is normal. The lungs are clear. . Previously noted density in the right mid chest is no longer seen. No evidence of pleural effusion or pneumothorax. IMPRESSION: No acute chest disease. Echocardiogram Date: 10/11/22 EF: 55-60% LV Function: normal RWMA: + none Other Findings: + RVH (mod to severe dilation of RV; decreased RV function) and + LVH (moderate)
--- NOTE | 2023-02-11 10:27 | Communication Note ---
Date of Service: February 11, 2023 Pt is a 72 yo female admitted with symptomatic anemia, Hgb of 4.5 on admission - > 7 after 3U PRBC transfusion. Blood ct has been stable for several days. Chart reviewed. She is hemodynamically stable. She is npo and had completed bowel prep for EGD and colonoscopy evaluations today. GI will give further recs after endoscopies are completed.
--- NOTE | 2023-02-11 10:53 | History & Physical Report ---
Date of Service February 11, 2023 Assessment & Plan (1) Symptomatic anemia: Plan: EGD and colonoscopy today (2) Heme positive stool: (3) History of pulmonary embolism: Admission and Anticipated Discharge Date Admission Date: February 08, 2023 History of Present Illness Chief Complaint: anemia Primary Care Provider: Jake Nguyễn MD anemia recent positive cologuard VTE on Eloquis Allergies Allergy/AdvReac Type Severity Reaction Status Date / Time No Known Allergies Allergy Unverified 02/10/23 10:31 Home Medications Medication Instructions Recorded Confirmed Type buspirone 15 mg tablet 15 mg PO TID 10/11/22 02/08/23 History carvedilol 6.25 mg tablet 6.25 mg PO BID 10/11/22 02/08/23 History rosuvastatin 10 mg tablet 10 mg PO DAILY 10/11/22 02/08/23 History apixaban 5 mg tablet (Eliquis) 5 mg PO Q12H #60 tabs 10/13/22 02/08/23 Rx famotidine 20 mg tablet 20 mg PO BID 02/08/23 02/08/23 History Past Med/Surg History Medical History (Updated 02/11/23 @ 08:41 by Rom Reddy MD) Bipolar 1 disorder CKD (chronic kidney disease) stage 3, GFR 30-59 ml/min Dyslipidemia Encounter for pre-operative examination History of DVT (deep vein thrombosis) History of pulmonary embolism Hypertension Prediabetes Surgical History H/O bone graft femur fx with bone graft and pin, age 16 H/O breast biopsy 1988; benign History of partial hysterectomy History of tonsillectomy Family History Other Hypertension Ovarian cancer Pancreatic cancer Social History Smoking Status: Former smoker Tobacco Type: Cigarettes Second Hand Exposure: No; Do You Dip or Chew Tobacco: No; Tobacco Cessation Education Requested by Patient: No (quit 14 years ago) Hx Alcohol Use: No Hx Substance Use: No Preferred Language: Togolese Communication Ability: Effective Visual Impairment: No Limitations Hearing Ability: Normal Bunk Assembler Required: No Beliefs That Will Affect Care: None Current Living Situation: Spouse current occupational status: retired Other Information That Helps Us Care for You: 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
[2023-02-11] MEDS ORDERED: LIDOCAINE 2% 2 ML VIAL/AMP(20MG/ML) INFIL ONE (11:25)
[2023-02-11] MEDS ORDERED: PROPOFOL IV EMULSION 10 MG/ML 20 ML VIAL IV ONE (11:25)
--- NOTE | 2023-02-11 11:28 | GI REPORT ---
Patient Name: Gracie Paredes Procedure Date: 02/11/2023 10:37 AM Date of : 1950 Admit Type: Inpatient Age: 72 Gender: Female Attending MD: Mindy Hennessy DO, Procedure: Upper GI endoscopy Providers: Mindy Hennessy DO Referring MD: Fabio Salinas Md Indications: Iron deficiency anemia Medicines: Propofol per Anesthesia Complications: No immediate complications. Estimated blood loss: None. Estimated Blood Loss: Estimated blood loss: none. Procedure: Pre-Anesthesia Assessment: - Prior to the procedure, a History and Physical was performed, and patient medications, allergies and sensitivities were reviewed. The patient's tolerance of previous anesthesia was reviewed. - The risks and benefits of the procedure and the sedation options and risks were discussed with the patient. All questions were answered and informed consent was obtained. - Patient identification and proposed procedure were verified prior to the procedure by the physician and the nurse. The procedure was verified in the pre-procedure area in the procedure room. - Mental Status Examination: alert and oriented. Airway Examination: normal oropharyngeal airway and neck mobility. Respiratory Examination: clear to auscultation. CV Examination: normal. Abdominal Examination: bowel sounds present, abdomen soft and non-tender, no masses or organomegaly noted. - ASA Grade Assessment: III - A patient with severe systemic disease. After obtaining informed consent, the endoscope was passed under direct vision. Throughout the procedure, the patient's blood pressure, pulse, and oxygen saturations were monitored continuously. The Endoscope was introduced through the mouth, and advanced to the third part of duodenum. The upper GI endoscopy was accomplished without difficulty. The patient tolerated the procedure well. Findings: The esophagus was normal. The stomach was normal. The examined duodenum was normal. Impression: - Normal esophagus. - Normal stomach. - Normal examined duodenum. - No specimens collected. Recommendation: - Perform a colonoscopy today. Mindy Hennessy D.O. Mindy Hennessy DO 02/11/2023 11:28:32 AM This report has been signed electronically. Note Initiated On: 02/11/2023 10:37 AM Number of Addenda: 0 I attest to the content of the Intraoperative Record and orders documented therein, exceptions below {[id number]}
--- NOTE | 2023-02-11 11:34 | GI REPORT ---
Patient Name: Gracie Paredes Procedure Date: 02/11/2023 10:38 AM Date of : 1950 Admit Type: Inpatient Age: 72 Gender: Female Attending MD: Mindy Hennessy DO, Procedure: Colonoscopy Providers: Mindy Hennessy DO Referring MD: Fabio Salinas Md Indications: Last colonoscopy within the past 5 years, Iron deficiency anemia, Positive Cologuard test Medicines: Propofol per Anesthesia Complications: No immediate complications. Estimated blood loss: Minimal. Estimated Blood Loss: Estimated blood loss was minimal. Procedure: Pre-Anesthesia Assessment: - Prior to the procedure, a History and Physical was performed, and patient medications, allergies and sensitivities were reviewed. The patient's tolerance of previous anesthesia was reviewed. - The risks and benefits of the procedure and the sedation options and risks were discussed with the patient. All questions were answered and informed consent was obtained. - Patient identification and proposed procedure were verified prior to the procedure by the physician and the nurse. The procedure was verified in the pre-procedure area in the procedure room. - Mental Status Examination: alert and oriented. Airway Examination: normal oropharyngeal airway and neck mobility. Respiratory Examination: clear to auscultation. CV Examination: normal. Abdominal Examination: bowel sounds present, abdomen soft and non-tender, no masses or organomegaly noted. - ASA Grade Assessment: III - A patient with severe systemic disease. After I obtained informed consent, the scope was passed under direct vision. Throughout the procedure, the patient's blood pressure, pulse, and oxygen saturations were monitored continuously. The scope was introduced through the anus and advanced to the terminal ileum. The colonoscopy was performed without difficulty. The patient tolerated the procedure well. The quality of the bowel preparation was good. Findings: The perianal and digital rectal examinations were normal. Pertinent negatives include normal sphincter tone and no palpable rectal lesions. The terminal ileum appeared normal. Five sessile polyps were found in the entire colon. The polyps were 3 to 6 mm in size. These polyps were removed with a cold snare. Resection and retrieval were complete. Verification of patient identification for the specimen was done by the physician and nurse using the patient's name and date. Estimated blood loss was minimal. Multiple small and large-mouthed diverticula were found in the sigmoid colon. A single (solitary) ulcer was found at 10 cm proximal to the anus. No bleeding was present. Biopsies were taken with a cold forceps for histology. Verification of patient identification for the specimen was done by the physician and nurse using the patient's name and date. Estimated blood loss was minimal. External and internal hemorrhoids were found during retroflexion and during perianal exam. Impression: - No fresh or altered blood. - The examined portion of the ileum was normal. - Five 3 to 6 mm polyps in the entire colon, removed with a cold snare. Resected and retrieved. - Diverticulosis in the sigmoid colon. - A single (solitary) ulcerate area of mucosa at 10 cm proximal to the anus. Biopsied. - External and internal hemorrhoids. Recommendation: - Await pathology results. - [facility]. - Advancement of diet per the primary service. - No lesion that would preclude resuming anticoagulation. At discretion of primary and sr technical sales consultant services. Mindy Hennessy D.O. Mindy Hennessy, 02/11/2023 11:33:53 AM This report has been signed electronically. Note Initiated On: 02/11/2023 10:38 AM Number of Addenda: 0 I attest to the content of the Intraoperative Record and orders documented therein, exceptions below {[id number]}
[2023-02-11] MEDS ORDERED: OPTIRAY 320 125ml IV ONE (14:09)
--- NOTE | 2023-02-11 15:31 | CT Scan Report ---
CT angio chest PE protocol CLINICAL HISTORY: PE TECHNIQUE: Multidetector row helical CT of the chest was performed with angiographic protocol. Lui l and sagittal reformations were obtained. Coronal and sagittal MIPS were obtained from the axial jonny a set and were submitted for review. Automated dose lowering techniques and/or adjustment according to patient size were utilized for this exam. CT DOSE: 913.48 mGy.cm Comparison: None available at the time of this dictation. FINDINGS: Lungs and pleura: Tree-in-bud nodularity is in the right upper lobe. A few discrete nodules are seen including a 4 mm nodule right upper lobe (series 4 image 168) and a 3 mm nodule in the right middle l obe (image 126). Atelectasis versus scarring is seen in the lingula. Heart and pericardium: Heart size is normal. No pericardial effusion. Vessels: Mild atherosclerotic changes in the aorta and coronary arteries. No pulmonary embolus is see n. Mediastinum and anita: Subcentimeter lymph nodes are seen. Chest wall and lower neck: Unremarkable. Abdomen: Unremarkable. A splenule is seen. Bones: Degenerative changes in the thoracic spine. IMPRESSION: 1. No acute abnormality and in particular no evidence of pulmonary embolus. 2. Interval decrease in size of multiple previously noted nodular densities in particular the previo usly noted 1 cm dominant nodule has essentially resolved. Remaining tree in bud nodularity is seen co mpatible with infectious/inflammatory process. ACT 112: Negative or not required by law. Electronically signed by: Nba Lemus M.D. 02/11/2023 3:30 PM
--- NOTE | 2023-02-11 16:04 | Anesthesiology Progress Note ---
Date of Service February 11, 2023 Anesthesia Post Procedure Vital Signs Vital Signs: Temp Pulse Resp BP BP Pulse Ox O2 Del Method 02/11/23 12:39 36.6 C 69 20 170/79 H 94 Room Air 02/11/23 12:09 189/75 H 02/11/23 11:55 69 16 163/121 H 95 Room Air 02/11/23 11:45 72 16 173/55 H 97 Room Air 02/11/23 11:27 36.2 C L 69 12 91/53 L 98 Room Air 02/11/23 10:35 36.1 C L 67 16 201/73 H 95 Room Air 02/11/23 07:36 36.6 C 64 16 164/70 H 97 Room Air 02/11/23 03:10 36.8 C 82 18 167/78 H 94 Room Air 02/10/23 22:40 36.5 C 66 20 172/71 H 94 Room Air 02/10/23 21:19 Room Air 02/10/23 19:00 02/10/23 19:00 36.6 C 83 18 181/78 H 94 Room Air O2 Del Method 02/11/23 12:39 02/11/23 12:09 02/11/23 11:55 02/11/23 11:45 02/11/23 11:27 02/11/23 10:35 02/11/23 07:36 02/11/23 03:10 02/10/23 22:40 02/10/23 21:19 02/10/23 19:00 Room Air 02/10/23 19:00 Transfer of Care Handoff Completed per policy Notes Mental Status: alert / awake / arousable and participated in evaluation Patient Amnestic to Procedure: Yes Nausea / Vomiting: adequately controlled Pain: adequately controlled Airway Patency, RR, SpO2: stable & adequate BP & HR: stable & adequate Hydration State: stable & adequate Anesthetic Complications: no major complications apparent
--- NOTE | 2023-02-11 17:19 | Discharge Summary ---
Date of Service February 11, 2023 Admission HPI Per Admitting Provider 72-year-old female with PMH CKD stage III, HTN, bipolar disorder, history of DVT/PE on Eliquis, and other problems listed below who presents to the ED by referral of outpatient pulmonology office for evaluation of shortness of breath. History obtained from the patient and review of outpatient PCP and pulmonary records. Patient admitted to [facility] 10/2022 for bilateral pulmonary embolism with right heart strain and RLE DVT. Patient started on Eliquis. Over the past couple of weeks, patient has noted worsening exertional shortness of breath and fatigue. Patient had CT chest without contrast on 01/22/2023 which showed clustered tree-in-bud nodules likely infectious or inflammatory. Patient started on doxycycline by PCP. Patient reports minimal improvement in symptoms with doxycycline. Was evaluated at pulmonology office today and referred to ED for further evaluation. Patient notes that she has been pale for the past 1 week. She denies chest pain. No lightheadedness, dizziness, diaphoresis, syncopal events. She denies abdominal pain, nausea, vomiting, diarrhea. No bright red bleeding per rectum or dark tarry stools. Patient states that she takes Roberto back and body a few times per week. Denies any other recent illnesses, fevers, chills. No urinary symptoms. In the ED, labs show Hgb 4.5 and stool is heme positive. Patient is hemodynamically stable. She was given Protonix 40 mg IV and PRBC transfusion started. Admission Exam Per Admitting Provider Constitutional: WD/WN, vitals as above Eyes: PERRL, conjunctivae normal, anicteric sclerae ENMT: external ear and nose normal, oropharynx normal Respiratory: normal respiratory effort, lungs clear to auscultation Cardiovascular: Rate/Rhythm: regular rate and regular rhythm Vessels: normal peripheral pulses Extremities: no edema Gastrointestinal (Abdomen): normal bowel sounds, soft, nontender, no hepatosplenomegaly Musculoskeletal: no cyanosis or clubbing, extremities motor strength 5/5 Skin: no rashes, warm and dry Neurologic: PERRL, EOMI, accommodation nl, no face palsy, no dysarthria Psychiatric: A+Ox3, euthymic affect Principal Diagnosis Symptomatic anemia, Iron deficiency anemia Discharge Exam General: Sitting comfortably in bed, not in distress, on room air HEENT: EOMI, EDGAR, MMM Chest: Clear breath sounds bilaterally, no wheezes or crackles CVS: Regular rate and rhythm, normal heart sounds, no murmur Abdomen: Soft, non tender, not distended, normal bowel sounds Neuro: Awake, alert, oriented, conversing well, non focal Extremities: No cyanosis, clubbing or edema Discharge Data Allergies Allergy/AdvReac Type Severity Reaction Status Date / Time No Known Allergies Allergy Unverified 02/10/23 10:31 Consultations 02/08/23 17:46 ED Decision to Admit Stat 02/08/23 19:31 Consult Gastroenterology Routine Procedures Performed Operation Date: 02/11/23 16:30 Actual Procedures p Esophagogastrectomy - Mindy Hennessy DO s Colonoscopy Polypectomy - Mindy Hennessy DO Ordered Studies 02/10/23 07:26 CT for pulmonary embolism PE [CT angio chest PE protocol] Routine Laboratory Results WBC 7.36 K/ul (4.8-10.8) 02/11/23 04:23 RBC 3.15 M/uL (4.20-5.40) L 02/11/23 04:23 Hgb 7.8 g/dl (12.0-16.0) L 02/11/23 04:23 Hct 25.4 % (37.0-47.0) L 02/11/23 04:23 MCV 80.6 fL (80.0-100.0) 02/11/23 04:23 MCH 24.8 pg (25.0-34.0) L 02/11/23 04:23 MCHC 30.7 g/dL (32.0-36.0) L 02/11/23 04:23 RDW Std Deviation 57.7 fL (36.4-46.3) H 02/11/23 04:23 RDW Coeff of Joanna 20.4 % (11.5-14.5) H 02/11/23 04:23 Plt Count 268 K/uL (130-400) 02/11/23 04:23 MPV 10.8 fL (9.4-12.4) 02/11/23 04:23 Immature Gran % (Auto) 0.5 % 02/08/23 14:50 Neut % (Auto) 77.1 % 02/08/23 14:50 Lymph % (Auto) 16.2 % 02/08/23 14:50 [place] % (Auto) 3.8 % 02/08/23 14:50 Eos % (Auto) 1.5 % 02/08/23 14:50 Baso % (Auto) 0.9 % 02/08/23 14:50 Reticulocyte % (Auto) 2.1 % (0.5-2.0) H 02/08/23 14:50 Neut # (Auto) 7.38 K/uL (1.40-6.50) H 02/08/23 14:50 Lymph # (Auto) 1.55 K/uL (1.2-3.4) 02/08/23 14:50 [place] # (Auto) 0.36 K/uL (0.11-0.59) 02/08/23 14:50 Eos # (Auto) 0.14 K/uL (0-0.50) 02/08/23 14:50 Baso # (Auto) 0.09 K/uL (0-0.2) 02/08/23 14:50 Reticulocyte # 0.05 10^6/uL (0.02-0.10) 02/08/23 14:50 Immature Gran # (Auto) 0.05 K/uL (0.01-0.20) 02/08/23 14:50 Absolute Nucleated RBC 0.17 K/uL (0-0.12) H 02/11/23 04:23 Nucleated RBC % (auto) 2.3 % 02/11/23 04:23 Polychromasia 1+ 02/08/23 14:50 Hypochromasia Present 02/08/23 14:50 Tear Drop Cells 1+ 02/08/23 14:50 PT 13.8 Seconds (9.0-12.0) H 02/08/23 14:50 INR 1.3 (0.9-1.1) H 02/08/23 14:50 APTT 25.2 Seconds (21.0-31.0) 02/08/23 14:50 PTT Ratio 0.9 02/08/23 14:50 D-Dimer < 190 ug/L FEU (0-500) 02/08/23 14:50 Sodium 143 mmol/L (136-145) 02/11/23 04:23 Potassium 3.4 mmol/L (3.5-5.1) L 02/11/23 04:23 Chloride 115 mmol/L (98-107) H 02/11/23 04:23 Carbon Dioxide 21 mmol/L (21-32) 02/11/23 04:23 Anion Gap 7 (3-11) 02/11/23 04:23 BUN 5 mg/dl (6-23) L 02/11/23 04:23 Creatinine 1.15 mg/dl (0.6-1.2) 02/11/23 04:23 Est Cr Clr Drug Dosing 44.2 ml/min 02/11/23 04:23 Est GFR ( Amer) 55.0 ml/min 02/11/23 04:23 Est GFR (Non-Af Amer) 47.5 ml/min 02/11/23 04:23 BUN/Creatinine Ratio 4.3 (10-20) L 02/11/23 04:23 Glucose 85 mg/dl (70-99(Fasting)) 02/11/23 04:23 Calcium 8.2 mg/dl (8.6-10.3) L 02/11/23 04:23 Magnesium 1.8 mg/dl (1.7-2.4) 02/10/23 05:29 Iron 132 mcg/dl (35-150) 02/09/23 05:37 Ferritin 9.4 ng/ml (8-388) 02/09/23 05:37 Total Bilirubin 0.5 mg/dl (0.2-1.0) 02/08/23 14:50 AST 9 U/L (13-39) L 02/08/23 14:50 ALT 6 U/L (7-52) L 02/08/23 14:50 Alkaline Phosphatase 127 U/L (34-104) H 02/08/23 14:50 Total Protein 6.5 gm/dl (6.0-8.3) 02/08/23 14:50 Albumin 4.1 gm/dl (3.4-5.0) 02/08/23 14:50 Globulin 2.4 gm/dl (2.5-4.0) L 02/08/23 14:50 Albumin/Globulin Ratio 1.7 (0.9-2) 02/08/23 14:50 Vitamin B12 244 pg/ml (180-914) 02/08/23 14:50 Folate 8.45 ng/ml (>5.38) 02/08/23 14:50 Urine Color Yellow 02/08/23 17:08 Urine Appearance Clear (Clear) 02/08/23 17:08 Urine pH 5.5 (4.5-7.5) 02/08/23 17:08 Ur Specific [place] 1.017 (1.000-1.030) 02/08/23 17:08 Urine Protein Trace (Negative) H 02/08/23 17:08 Urine Glucose (UA) Negative (Negative) 02/08/23 17:08 Urine Ketones Negative (Negative) 02/08/23 17:08 Urine Blood Trace (Negative) H 02/08/23 17:08 Urine Nitrite Negative (Negative) 02/08/23 17:08 Urine Bilirubin Negative (Negative) 02/08/23 17:08 Urine Urobilinogen Negative (Negative) 02/08/23 17:08 Ur Leukocyte Esterase 1+ (Negative) H 02/08/23 17:08 Urine WBC (Auto) 10-30 /hpf (0-5) H 02/08/23 17:08 Urine RBC (Auto) 5-10 /hpf (0-4) H 02/08/23 17:08 U Hyaline Cast (Auto) 5-10 /lpf (0-5) H 02/08/23 17:08 U Epithel Cells (Auto) >30 /lpf (0-5) H 02/08/23 17:08 Urine Bacteria (Auto) Negative (Negative) 02/08/23 17:08 Urine Yeast Not Reportable 02/08/23 17:08 SARS-CoV-2, RNA, NAAT NEGATIVE (NEGATIVE) 02/08/23 15:55 Blood Type AB Positive 02/08/23 15:57 Blood Type Recheck AB Positive 02/08/23 16:12 Antibody Screen NEGATIVE 02/08/23 15:57 Crossmatch See Detail 02/08/23 15:57 Impressions Chest X-Ray 02/08/23 13:38 XR chest 1V portable CLINICAL HISTORY: Dyspnea TECHNIQUE: Single frontal radiograph of the chest was obtained. Comparison: Comparison is made to chest radiograph 10/11/2022 FINDINGS: No lines and tubes are seen. The cardiomediastinal silhouette is normal. The lungs are clear. . Previously noted density in the right mid chest is no longer seen. No evidence of pleural effusion or pneumothorax. IMPRESSION: No acute chest disease. ACT 112: Negative or not required by law. Electronically signed by: Nba Lemus M.D. 02/08/2023 4:41 PM Chest CTA 02/10/23 07:26 CT angio chest PE protocol CLINICAL HISTORY: PE TECHNIQUE: Multidetector row helical CT of the chest was performed with angiographic protocol. Coronal and sagittal reformations were obtained. Coronal and sagittal MIPS were obtained from the axial data set and were submitted for review. Automated dose lowering techniques and/or adjustment according to patient size were utilized for this exam. CT DOSE: 913.48 mGy.cm Comparison: None available at the time of this dictation. FINDINGS: Lungs and pleura: Tree-in-bud nodularity is in the right upper lobe. A few discrete nodules are seen including a 4 mm nodule right upper lobe (series 4 image 168) and a 3 mm nodule in the right middle lobe (image 126). Atelectasis versus scarring is seen in the lingula. Heart and pericardium: Heart size is normal. No pericardial effusion. Vessels: Mild atherosclerotic changes in the aorta and coronary arteries. No pulmonary embolus is seen. Mediastinum and anita: Subcentimeter lymph nodes are seen. Chest wall and lower neck: Unremarkable. Abdomen: Unremarkable. A splenule is seen. Bones: Degenerative changes in the thoracic spine. IMPRESSION: 1. No acute abnormality and in particular no evidence of pulmonary embolus. 2. Interval decrease in size of multiple previously noted nodular densities in particular the previously noted 1 cm dominant nodule has essentially resolved. Remaining tree in bud nodularity is seen compatible with infectious/inflammatory process. ACT 112: Negative or not required by law. Electronically signed by: Nba Lemus M.D. 02/11/2023 3:30 PM Hospital Course (1) Symptomatic anemia: (2) History of pulmonary embolism: (3) History of DVT (deep vein thrombosis): (4) CKD (chronic kidney disease) stage 3, GFR 30-59 ml/min: Plan 72-year-old female with history of DVT/PE diagnosed October 2022 on Eliquis since then presented to ED with worsening shortness of breath over the past month and found to have symptomatic anemia with hemoglobin of 4.5 status post 3 units PRBC transfusion. Hb has remained stable close to 8 after 3 U PRBC. No evidence of bleeding here. Underwent EGD/Colonoscopy today which did not show any active or concerns of bleeding, 5 sessile polyps were removed and a rectal ulcer was biopsied. Discussed with GI Dr Hennessy. Cleared for resuming anticoag if needed. Recommended follow up with PCP to discuss alternate etiologies including pursuing capsule study. She received 900 mg IV iron inhouse for iron deficiency and was started on Vit B12 supplementation for low B12. Recommended CBC and BMP in 2-3 weeks to follow up on anemia, renal function and electrolytes. Upon discussion with patient at bedside, this is her first episode and she does not have any personal or family history of hypercoagulable disorder. Since clots are all gone, it would be reasonable to hold off on anticoag and monitor for now until seen by the PCP next week. This will also give the opportunity to pursue hypercoag disorder if deemed necessary by the PCP or further work up of her anemia. Discussed all the pros and cons with patient/family at bedside and answ ered all questions to satisfaction. Symptomatic anemia unclear etiology ?chronic blood loss, iron deficiency - in setting of eliquis use for DVT -Baseline Hb of >12. On presentation 4.5->6.8->7.9->7.7->7.8 s/p 3 U PRBC on admission. Ferritin 9.4, Folate normal, B12 low normal. - EGD/colonoscopy with no active bleeding noted - Discussed with GI- cleared for anticoag and OP follow up with PCP to discuss further - S/p IV iron D3/3 total of 900 mg given. Started on po iron and B12 supplementation - Repeat CBC, BMP in 2-3 weeks and repeat iron studies in few months History of DVT/PE- D-dimer within normal limits rules out any active clots. CTA chest with no PE but tree in bud s/o infection. Started on doxy for 7 days. F/u with PCP/pulm CKD3b- Cr at baseline of 1.2-1.3 Hypokalemia- repleted. Dyslipidemia- on statin Bipolar 1- on buspar Total Time Total Time Spent Total Time Spent (In Minutes): 50 Discharge Plan Discharge Items Patient Disposition: Home - Self-Care Reason For Visit: ANEMIA Discharge Diagnosis: Symptomatic anemia, iron deficiency anemia, h/o DVT/PE on eliquis Activity: Resume your previous activity Non-emergency contact: Primary Care Provider and [employer] Inspector [employer] Call non-emergency contact if: you have any medication questions, your symptoms worsen, your pain is concerning for you and you have a fever Follow-up/Referrals: Jake Nguyễn MD [Primary Care Provider] - Diet: Regular Addtl Attending Provider Instructions: CT shows no blood clots but infection. Continue doxy. Continue iron and B12 supplementation. Recommend repeat hemoglobin in 2-3 weeks to ensure hemoglobin is coming up. Follow up with family doctor to discuss regarding the blood thinner Follow up with GI regarding the biopsy results Pending Studies at Discharge: Yes Studies:: colonoscopy biopsy results Stand-Alone Forms: My [facility] [address], Smoking Cessation Medications and DC Order Prescriptions: New cyanocobalamin (vitamin B-12) 500 mcg Tablet 500 mcg PO QAM Qty: 30 0RF ferrous gluconate [Fergon] 240 mg (27 mg iron) tablet 240 mg PO DAILY Qty: 30 0RF doxycycline hyclate 100 mg tablet 100 mg PO BID 7 Days Qty: 14 0RF Continued famotidine 20 mg tablet 20 mg PO BID carvedilol 6.25 mg tablet 6.25 mg PO BID buspirone 15 mg tablet 15 mg PO TID rosuvastatin 10 mg tablet 10 mg PO DAILY Held Eliquis 5 mg tablet 5 mg PO Q12H Qty: 60 2RF Hold Instructions: Resume on 02/20/23. Until after discussion with family doctor Discharge Orders: Discharge Order (Routine); Ordered 02/11/23 Ordered By: Fabio Dias Admission Data Admit Date/Time: 02/08/23 18:03 Attending Provider: Fabio Dias Admit Provider: Yana Heaton Primary Care Provider: Jake Nguyễn Other Providers: Yana Heaton ; Cristhian Muller Jr Other Interventions: Discharge Summary Assessment (RN) Last Done: 02/11/23 16:37
== END 2023-02-11 17:11 | disposition home or self-care (01) | DRG 812 ==
LOC: ED 13:22 → 4W 18:03 → SUATTDRO 18:03 → OBSVTOIN 18:03 → INTOOBSV 18:03 → 4W 18:32

== ENCOUNTER 2024-08-14 10:17 | Observation (INO) ==
--- NOTE | 2024-07-06 12:03 | PAT Medication Instructions ---
Medication Instructions Date of Service July 06, 2024 Home Medications Medication Instructions Recorded tramadol 50 mg tablet 50 mg PO Q8H PRN pain #60 tabs 06/22/24 buspirone 15 mg tablet 15 mg PO TID carvedilol 6.25 mg tablet 6.25 mg PO BID rosuvastatin 10 mg tablet 10 mg PO QAM famotidine 20 mg tablet 20 mg PO BID tramadol 50 mg tablet 50 mg PO Q8H PRN pain apixaban 2.5 mg tablet (Eliquis) 2.5 mg PO BID cyanocobalamin (vitamin B-12) 1,000 mcg tablet 1,000 mcg PO QAM ferrous sulfate 325 mg (65 mg iron) tablet (iron) 325 mg PO QAM lisinopril 5 mg tablet 5 mg PO QAM multivitamin 1 tab PO QAM ASK your prescriber and surgeon apixaban 2.5 mg tablet (Eliquis) 2.5 mg PO BID (in order to get spinal anesthesia- will need to hold Eliquis/apixaban at least 72 hours prior to surgery) DO NOT take the morning of surgery cyanocobalamin (vitamin B-12) 1,000 mcg tablet 1,000 mcg PO QAM ferrous sulfate 325 mg (65 mg iron) tablet (iron) 325 mg PO QAM lisinopril 5 mg tablet 5 mg PO QAM multivitamin 1 tab PO QAM Take morning of surgery With a small sip of water, OTHERWISE NOTHING TO EAT OR DRINK AFTER MIDNIGHT: buspirone 15 mg tablet 15 mg PO TID carvedilol 6.25 mg tablet 6.25 mg PO BID rosuvastatin 10 mg tablet 10 mg PO QAM famotidine 20 mg tablet 20 mg PO BID tramadol 50 mg tablet 50 mg PO Q8H PRN pain (if needed) Take evening before surgery buspirone 15 mg tablet 15 mg PO TID carvedilol 6.25 mg tablet 6.25 mg PO BID famotidine 20 mg tablet 20 mg PO BID tramadol 50 mg tablet 50 mg PO Q8H PRN pain (if needed) Other Notes If you have any questions please call us at [phone] or [phone] or [phone] or [phone]
--- NOTE | 2024-07-15 11:36 | Anesthesiology Consultation ---
Date of Service July 15, 2024 Assessment & Plan (1) Encounter for pre-operative examination: - Infectious disease screening: Per assessment on 07/15/24- No known recent infectious disease contacts or current infectious disease symptoms. - Outpatient joint assessment: Pt currently scheduled for inpatient pathway. If surgeon requests review for outpatient joint pathway, patient is not recommended candidate for outpatient joint program from anesthesia standpoint based on available information. - Eliquis instructions: patient made aware that for neuraxial anesthesia, Eliquis needs to be held 72 hours prior to surgery. Patient voiced understanding/will check if okay with prescriber. - Patient had BP check with PCP 07/08/24. BP elevated at 174/80. Lisinopril increased to 10mg daily and recommendation for f/u BP check in 2 weeks. Awaiting BP recheck visit ([facility], 07/23). Patient otherwise acceptable risk for surgery. Chart Review Chart Review: Patient seen in Pre Admission Testing Teaching & Discussion Pre-Anesthesia Teaching/Discussion Notes: Instructed NPO after midnight before surgery,except medications with 15 cc of water. Medication instructions provided according to the PAT guidelines. History Surgery Operation Date: 08/14/24 07:00 Proposed Procedures p Left Total Knee Arthroplasty - Davey Sheppard, Height/Weight Height: 5 ft 3.5 in Weight: 81.3 kg Allergies Allergy/AdvReac Type Severity Reaction Status Date / Time No Known Allergies Allergy Verified 07/06/24 11:16 Medications Home Medications Medication Instructions Recorded Confirmed Last Taken buspirone 15 mg tablet 15 mg PO TID 10/11/22 07/06/24 02/08/23 08:00 carvedilol 6.25 mg tablet 6.25 mg PO BID 10/11/22 07/06/24 02/08/23 08:00 rosuvastatin 10 mg tablet 10 mg PO QAM 10/11/22 07/06/24 02/08/23 famotidine 20 mg tablet 20 mg PO BID 02/08/23 07/06/24 02/08/23 08:00 tramadol 50 mg tablet 50 mg PO Q8H PRN pain #60 tabs 06/22/24 07/06/24 Unknown apixaban 2.5 mg tablet (Eliquis) 2.5 mg PO BID 07/06/24 07/06/24 Unknown cyanocobalamin (vitamin B-12) 1,000 mcg PO QAM 07/06/24 07/06/24 Unknown 1,000 mcg tablet ferrous sulfate 325 mg (65 mg 325 mg PO QAM 07/06/24 07/06/24 Unknown iron) tablet (iron) multivitamin 1 tab PO QAM 07/06/24 07/06/24 Unknown lisinopril 10 mg tablet 10 mg PO DAILY 07/15/24 07/15/24 Unknown Past Medical History Medical History Anemia Anxiety Arthritis Bipolar 1 disorder Per records CKD (chronic kidney disease) stage 3, GFR 30-59 ml/min Dyslipidemia History of DVT (deep vein thrombosis) RLE DVT > PE (10/2022) Taking Eliquis History of kidney stones No surgery required History of pulmonary embolism RLE DVT > PE (10/2022) Taking Eliquis Hx of gout Hypertension Left knee DJD Prediabetes Per records Exercise / Class Metabolic Activity III < 4 Walking/Shop/Light housework Past Family History Family History Other Hypertension No family history of adverse response to anesthesia Ovarian cancer Pancreatic cancer Past Surgical History Surgical History H/O bone graft Femur fx with bone graft and pin (age 15) H/O breast biopsy "benign" (1988) History of colonoscopy History of esophagogastroduodenoscopy (EGD) History of partial hysterectomy History of tonsillectomy [place] teeth removed Past Anesthesia History No Hx of Anesthesia Complications and No Family Hx of Anesthesia Complications History of PONV No Hx of PONV and No Hx of Motion Sickness Social History Smoking Status: Former smoker tobacco type: cigarettes Do You Dip or Chew Tobacco: No Smoking End Date: Quit 2007 Hx Alcohol Use: No substance use type: does not use Review of Systems Patient denies chest pain, shortness of breath, dyspnea on exertion, fever, chills, cough, wheezing. Physical Exam Vital Signs BP 173/89 P 71 TEMP 98.2 SP02 97%RA RESP 16 Physical Full cervical extension range of motion. Full TMJ range of motion. TMD 3 finger breaths Mallampati Score III Dentition: missing molars, + cap Lungs: clear throughout to auscultation Cardiac: regular rate and rhythm, no murmurs noted Spine: normal Carotid arteries: negative bruit Extremities: no LE edema Lab Results Anesthesia Preop Results Results Anesthesia Widget: WBC 6.19 K/ul (4.8-10.8) 07/15/24 Hgb 13.6 g/dl (12.0-16.0) 07/15/24 Hct 42.3 % (37.0-47.0) 07/15/24 Plt 268 K/uL (130-400) 07/15/24 PT 11.4 Seconds (9.0-12.0) 07/15/24 PTT 29 Seconds (21-31) 07/15/24 INR 1.1 (0.9-1.1) 07/15/24 Blood Type AB Positive 07/15/24 Antibody Screen NEGATIVE 07/15/24 Testing Laboratory Results 06/24/24 SODIUM 145 POTASSIUM 4.4 CHLORIDE 105 CO2 28 BUN 15 CREATININE 1.2 (PCP lab review/note 06/24/24: "kidney function stable") GLUCOSE 105 07/01/24 HGB 14.3 CREATININE 1.3 Electrocardiogram Date: 07/15/24 NSR at 68bpm. "Normal ECG" Chest X-Ray Date: 07/15/24 IMPRESSION: 1. No significant interval change from the prior radiograph except for: 2. A linear atelectatic band is seen in the left lung lower zone. 3. Left lower zone haziness may be due to summation shadows from overlying structures. Advise clinical correlation and follow-up if indicated. *Patient with no cardiopulmonary complaints, stable vitals and unremarkable physical exam at PAT visit from same day. Report forwarded to PCP for continuity of care.* Echocardiogram Date: 10/12/22 EF 55-60%. LV wall motion is normal. Moderate to severe RVD. RV systolic function is severely reduced. Moderate cLVH. Mild AV sclerosis. Mild TR.
--- NOTE | 2024-08-13 06:52 | History & Physical Report ---
Date of Service August 13, 2024 Assessment & Plan (1) Left knee DJD: We will proceed with a left total knee arthroplasty. Postoperatively she will be started on Eliquis for DVT prophylaxis and kept overnight in the hospital for postop medical management. She plans to use energy physical therapy upon discharge. History of Present Illness Chief Complaint: Osteoarthritis of the left knee. Primary Care Provider: Jake Nguyễn MD Gracie is a pleasant 73-year-old female who has been dealing with chronic increasing left knee pain. She has had mild on and off knee pain for years, but it became much more severe about 4 months ago[address] She saw Dr. Kim and had an injection in her knee. The injection did help some. Unfortunately, she is still dealing with some lingering knee pain. She is becoming more concerned with it. X-rays and clinical examination have been diagnostic for advanced osteoarthritis of the left knee. After failed conservative treatment, she has elected to proceed with a left total knee arthroplasty. Allergies Allergy/AdvReac Type Severity Reaction Status Date / Time No Known Allergies Allergy Verified 07/06/24 11:16 Home Medications Medication Instructions Recorded Confirmed Type buspirone 15 mg tablet 15 mg PO TID 10/11/22 07/06/24 History carvedilol 6.25 mg tablet 6.25 mg PO BID 10/11/22 07/06/24 History rosuvastatin 10 mg tablet 10 mg PO QAM 10/11/22 07/06/24 History famotidine 20 mg tablet 20 mg PO BID 02/08/23 07/06/24 History tramadol 50 mg tablet 50 mg PO Q8H PRN pain #60 tabs 06/22/24 07/06/24 Rx apixaban 2.5 mg tablet (Eliquis) 2.5 mg PO BID 07/06/24 07/06/24 History cyanocobalamin (vitamin B-12) 1,000 mcg PO QAM 07/06/24 07/06/24 History 1,000 mcg tablet ferrous sulfate 325 mg (65 mg 325 mg PO QAM 07/06/24 07/06/24 History iron) tablet (iron) multivitamin 1 tab PO QAM 07/06/24 07/06/24 History lisinopril 10 mg tablet 10 mg PO DAILY 07/15/24 07/15/24 History Past Med/Surg History Problem List Encounter for pre-operative examination Medical History Left knee DJD CKD (chronic kidney disease) stage 3, GFR 30-59 ml/min Bipolar 1 disorder Per records Prediabetes Per records Hx of gout Arthritis History of kidney stones No surgery required Anemia Anxiety Hypertension History of pulmonary embolism RLE DVT > PE (10/2022) Taking Eliquis History of DVT (deep vein thrombosis) RLE DVT > PE (10/2022) Taking Eliquis Dyslipidemia Surgical History History of esophagogastroduodenoscopy (EGD) History of colonoscopy [place] teeth removed H/O bone graft Femur fx with bone graft and pin (age 15) History of tonsillectomy History of partial hysterectomy H/O breast biopsy "benign" (1988) Family History Other Hypertension No family history of adverse response to anesthesia Ovarian cancer Pancreatic cancer Social History Smoking Status: Former smoker Tobacco Type: Cigarettes Smoking End Date: Quit 2007; Second Hand Exposure: No; Do You Dip or Chew Tobacco: No; Hx Alcohol Use: No Preferred Language: Syriac Communication Ability: Effective Visual Impairment: No Limitations Hearing Ability: Normal Anaesthesiologist Required: No Beliefs That Will Affect Care: Buddhist Buddhist Beliefs: Timoteo Current Living Situation: Spouse current occupational status: retired Feels Safe at Home: Yes Safety Concerns: Feels Safe At This Time Diet: regular during the past year weight has: remained stable Dental Care, Regularly: Yes Seatbelt Use: always Assistive Devices: Glasses and Walker Review of Systems All systems reviewed & are unremarkable except as noted in HPI & below. Physical Exam On physical exam the left knee, she has a varus deformity. Tenderness palpation of the distal medial femoral condyle and over the medial joint line.. Constitutional WD/WN, vitals as above Eyes PERRL, conjunctivae normal, anicteric sclerae ENMT external ear and nose normal, oropharynx normal Neck trachea midline, no thyromegaly Respiratory normal respiratory effort Cardiovascular RRR, no murmur, no edema Gastrointestinal (Abdomen) normal bowel sounds, soft, nontender, no hepatosplenomegaly Psychiatric A+Ox3, euthymic affect Results & Data Results & Data Laboratory Results . Diagnostic Findings X-rays of the left knee show advanced osteoarthritis with joint space narrowing, osteophyte formation, and byye-[id number] articulation. PG Care Time/CCT Total # of Minutes Spent Total Time Spent with Patient: Total time spent is greater than 50% in coordination of care (as documented) at patient's floor/unit and/or counseling patient: Coding Level of Care Code None Diagnoses Left knee DJD M17.12
[~2024-08-14 10:17] MED LIST changes: -ALBUAER19 INH; -DPKEC250 PO; -HYDR25TA4 PO; -LAMO200T PO; +ROPIVACAINE 0.5% 5 MG/ML 30 ML VIAL ONE; -[UNRECOGNIZED DRUG - CODE] PO
[2024-08-14] MEDS: LR 500ML BOLUS, THEN 15ML/HR IV SCH (11:09)
[2024-08-14] MEDS: dexAMETHasone**PF** 10 MG/ML VIAL IV SCH (11:10)
[2024-08-14] MEDS: GABAPENTIN 300 MG CAP PO SCH (11:10)
[2024-08-14] MEDS: ACETAMINOPHEN 500 MG TAB PO SCH ×2 (11:10→16:33)
[2024-08-14] MEDS: FAMOTIDINE 20 MG TAB PO SCH ×2 (11:10→21:15)
[2024-08-14] MEDS: LR 60ML/HR IV SCH (11:11)
--- NOTE | 2024-08-14 11:15 | History & Physical Bridge Note ---
Date of Service August 14, 2024 History & Physical Bridge Note I have examined the patient, reviewed the History & Physical and in the interval since the performance of the History & Physical I have noted the following changes of clinical significance: no changes noted
[2024-08-14] MEDS ORDERED: MIDAZOLAM HCL 1 MG/ML 2ML VIAL ONE (11:29)
[2024-08-14] MEDS ORDERED: fentaNYL citrate PF 100 MCG/2 ML VIAL ONE (11:29)
[2024-08-14] MEDS ORDERED: HYDROmorphone INJ 1 MG/ML SYRINGE IV PRN (11:53)
[2024-08-14] MEDS ORDERED: ONDANSETRON INJ 2 MG/ML 2 ML VIAL IV PRN ×2 (11:53→15:46)
[2024-08-14] MEDS ORDERED: ATROPINE SULFATE 0.1 MG/ML 10ML SYR IV PRN (11:53)
[2024-08-14] MEDS ORDERED: fentaNYL citrate PF 100 MCG/2 ML VIAL IV PRN (11:53)
[2024-08-14] MEDS ORDERED: ePHEDrine sulfate 50 MG/ML AMP IV PRN (11:53)
[2024-08-14] MEDS: TRANEXAMIC ACID 1,000 MG **IV Pre-op IV SCH (12:03)
[2024-08-14] MEDS: ceFAZolin 2000MG 2,000 MG/15 ML SYR IV SCH (12:14)
[2024-08-14] MEDS: ROPIV 0.5% 246mg, Ketorolac 30mg, EPINEPHrine 0.5mg in NSS INFIL SCH (12:54)
[2024-08-14] MEDS: ORTHO JOINT ANESTHETIC ONE (12:54)
[2024-08-14] MEDS: TRANEXAMIC ACID 1,000 MG **IV Intra-op IV SCH (13:15)
--- NOTE | 2024-08-14 13:34 | Operative Report ---
PG Post Operative Report Pre & Post Diagnosis Operation Date: 08/14/24 12:00 Pre-Op Diagnosis: Left Knee Degenerative Joint Disease Post-Op Diagnosis: Left Knee Degenerative Joint Disease I identified the patient and participated in the time-out.: Yes Procedure Operation Date: 08/14/24 12:00 Actual Procedures p Left Total Knee Arthroplasty(Left) - Davey Sheppard DO Surgeon Davey Sheppard DO Border Guard Julio Cesar Alamo PA-C Estimated Blood Loss 30 Findings Consistent with Post-Op Diagnosis Specimens Left femoral and tibial bone Description of Procedure Implants used: I used a Alejandrina Persona total knee arthroplasty system with a size 7 standard PS femur, D tibia, 31 oval patella, and a size 12 CPS polyethylene bearing. All components were cemented in place with Biomet cement. Gracie arrived [facility] for the above procedure. She was seen in the preoperative holding area and the operative extremity was identified and signed. she was given a preoperative antibiotic, TXA, a spinal anesthetic and an adductor nerve block. She was taken back to the operating room and laid on the table in supine position. She was given basic sedation. The operative knee was then prepped and draped in sterile fashion. A timeout was done, and the patient and the operative extremity was properly identified. A midline incision was made directly over the patella. Dissection was taken down to the extensor mechanism. A medial parapatellar arthrotomy was used. The medial retinaculum was released and the fat pad was mostly excised. The knee was flexed and the ACL, PCL, and meniscus were removed. A drill was sent down the center of the femoral canal followed by an intramedullary sarah. Off that sarah a distal femoral cutting block was placed. 9 mm was resected off the distal femur at 5 of valgus. A posterior referencing AP sizing guide was then placed on the distal femur. The femur measured to be a size 7. 2 drill holes were placed in 3 of external rotation. A 4-in-1 cutting block was then impacted into place. Anterior, posterior, and chamfer cuts were then made. The proximal tibia was then exposed. An external tibial alignment guide was placed. A tibial cut guide was then anchored in place and the proximal tibia was then resected. The posterior aspect of the knee was then opened up and any additional meniscus fragments and osteophytes were removed. The tibia measured to be a size D. The tibial plate was then placed in the appropriate rotation and the tibia was drilled and punched. Trial components were then placed. I used a size 12 CPS polyethylene insert. The knee was brought through a full range of motion and felt to be stable. The peg holes for the femoral component were then drilled. The patella was then everted and 9 mm was resected off the posterior aspect of the patella. The patella measured to be a size 31 oval. 3 peg holes were then drilled. A trial patella was placed. The knee was once again brought through a full range of motion and felt to be stable. Trial components were then removed. The surrounding soft tissues were injected with 100 cc of an orthopedic pain control cocktail. All components were then cemented into place with Biomet cement. The final polyethylene insert was then snapped into place. Once cement was dry the tourniquet was deflated. Hemostasis was obtained. A dilute betadyne lavage was then done for 3 minutes. The joint was then irrigated with normal saline solution. The medial parapatellar arthrotomy was then closed with #1 Vicryl suture. The skin was closed with 2-0 Vicryl, 3-0V lock suture, and apolonia. A soft compressive dressing was placed. She was then transferred to a hospital bed and taken to the postanesthesia care unit in stable condition. She tolerated the procedure well. Julio Cesar Alamo PA-C, was present for the entire procedure. He was critical for patient positioning, prepping, draping, retraction exposure, wound closure and application of sterile dressing. I attest to the content of the Intraoperative Record and any orders documented therein. Any exceptions are noted below.
[2024-08-14] MEDS ORDERED: PROPOFOL IV EMULSION 10 MG/ML 100 ML VIAL IV ONE ×2 (13:40)
[2024-08-14] MEDS ORDERED: ONDANSETRON INJ 2 MG/ML 2 ML VIAL ONE (13:40)
--- NOTE | 2024-08-14 14:36 | XRay Report ---
XR knee LT 1 or 2V routine CLINICAL HISTORY: Postoperative evaluation. COMPARISON: Left knee radiographs April 29, 2024. FINDINGS: Alignment of the total left knee arthroplasty is anatomic. There is no periprosthetic frac ture or lucency. There are skin apolonia. No unexpected radiopaque foreign bodies are present. Note is again made of calcific bodies likely within a popliteal cyst, unchanged. A healed mid diaphyseal lef t femoral fracture is partially imaged. IMPRESSION: Expected findings following total left knee arthroplasty. ACT 112: Negative or not required by law. Electronically signed by: Rickey Santillan M.D. 08/14/2024 2:35 PM
[2024-08-14] MEDS: hydrALAZINE HCL 20 MG/ML VIAL IV STA (14:40)
[2024-08-14] MEDS: hydrALAZINE HCL 20 MG/ML VIAL ONE (14:47)
--- OUTSIDE RECORDS SUMMARY | 2024-08-14 14:49 | External Medical Summary | Summary of Care ---
Author Name Unknown Organization [facility] Address [address] [facility] [place] [address] Phone [phone] Care Team Providers Care Magazine Hand Name Role Phone Delma CRISOSTOMO MD, Jake Steward Primary Care Provider [phone] Encounter Details Date Type Department Care Team (Late st Contact Info) Description 07/17/2024 Orders Only Family Practice [facility] [address] [facility] [place] [address] Jake Nguyễn III, MD [address] [place] [address] Allergies No known active allergiesdocumented as of this encounter (statuses as of 07/17/2024) Medications Ferrous Gluconate 240 (27 Fe) MG Oral Tablet Take 240 mg by mouth in the morning. Active Cyanocobalamin 500 MCG Oral Tablet Take 1 Tablet by mouth in the morning. Active Womens 50+ Multi Vitamin/Min Oral Tablet Take by mouth. Active Famotidine 20 MG Oral Tablet (Pepcid) TAKE 1 TABLET BY MOUTH IN THE MORNING AND BEFORE BEDTIME 180 Tablet 3 02/25/2024 Active Apixaban 2.5 MG Oral Tablet (Eliquis) Take 1 Tablet by mouth in the morning and 1 Tablet before bedtime. 180 Tablet 1 03/20/2024 Active busPIRone HCl 15 MG Oral Tablet (Buspar)Indicat ions:Anxiety state TAKE 1 TABLET BY MOUTH THREE TIMES A DAY 270 Tablet 3 04/06/2024 Active traMADol HCl 50 MG Oral Tablet (Ultram) Take 1 Tablet by mouth every 8 hours as needed for Pain, Moderate. 06/22/2024 Active Rosuvastatin Calcium 10 MG Oral Tablet (Crestor)Indica tions:Dyslipide kai Take 1 Tablet by mouth in the morning. 90 Tablet 3 06/24/2024 Active Carvedilol 6.25 MG Oral Tablet (Coreg) Take 1 Tablet by mouth in the morning and 1 Tablet before bedtime. with food. 180 Tablet 3 06/24/2024 Active Lisinopril 10 MG Oral Tablet (Prinivil) Take 1 Tablet by mouth in the morning. 30 Tablet 5 07/08/2024 Active documented as of this encounter (statuses as of 07/17/2024) Active Problems Problem Noted Date Diagnosed Date Microalbuminuria 06/24/2024 Bipolar I disorder, most recent episode mixed, m oderate 05/02/2022 Dyslipidemia 12/09/2019 Hypernatremia 06/13/2018 Benign hypertension with CKD (chronic kidney disease) stage III 05/08/2017 HTN, goal below 140/90 12/11/2013 documented as of this encounter (statuses as of 07/17/2024) Resolved Problems Problem Noted Date Diagnosed Date Resolved Date Parkinson's disease 06/26/2023 06/26/20 23 Prediabetes 06/20/2020 12/25/2023 Overview: Per Prediabetes protocol 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 06/09/2020 1 Hypercalcemia 06/13/2018 12/04/2018 Nephrolithiasis 06/13/2018 12/04/2018 Parkinson's disease 05/08/2017 11/28/19 18 Kidney disease, chronic, sta ge III (GFR 30-59 ml/min) 10/05/2013 05/08/2017 Overview: Per CKD protocol #1 HTN, goal below 130/80 04/15/201312/11 HTN, goal to be determined 10/13/2010 0 04/15/2013 LUMB-LUMBOSAC DISC DEGEN 08/07/2005 L SCIATICA 08/07/2005 05/29/2018 Overview (08/07/2005): Left ADVANCE DIRECTIVE INFORMATION 07/09/2005 06/15/2024 Bipolar I disorder, most rec ent episode mixed, moderate 01/13/2002 05/02/2022 Overview (06/29/2005): Dr.Ellen Schuster Apraxia, post-stroke 01/13/2002 018 Overview (06/29/2005): pt had taken too much lorazepam Major depressive disorder 08/22/2000 Overview (06/04/2017): ICD-10 update of inactive term HERPETIC GINGIVOSTOMAT 05/22/200008/07 Anxiety states 08/07/2005 Overview (06/04/2017): ICD-10 update of inactive term Tobacco use disorder 016 documented as of this encounter (statuses as of 07/17/2024) Immunizations Name Administration Dates Next Due COVID-19 mRNA, LNP-s, No Pre serve, 2-Dose Series ([employer]) 05/10/2021,09/27/2020,09/02/2020 COVID-19, LNP-s, No Preserve , Klever-sucrose, Ages 12+ (Pfizer) 12/26/2021 COVID-19, MRNA-LNP, PF, 30 M CG/0.3 mL, 12 YRS AND ABOVE, IM (Peel-Comirnat) 05/06/2023 Covid-19, Mrna, Lnp-s, Pf, B ivalent, 30 Mcg, IM, 12 yrs and above ([employer]) 06/12/2022 PPD 02/01/2015,11/10/1992 Pneumococcal Conjugate Vacc, 13 Valent (Prevnar) 11/29/2015 Pneumococcal Polysaccharide PPV23 (Pneumovax) 11/29/2016 RSV Vac., Recomb, Adjuvant, PF,0.5 Ml (Arexvy) 06/29/2023 Season Influenza, Quad, PF, Adjuvanted, 65+ Yrs, IM (FLUAD) 05/06/2023,05/14/2020 Seasonal Influenza Vac., MDV , IM, 0.5 mL (Fluzone) 06/04/2014,05/01/2013,04/29/2012,06/11,05/18/2010,06/22/2008 Seasonal Influenza, High Dos e, Trivalent, PF, IM (Fluzone HD) 04/27/2024 Seasonal Influenza, PF, 6 M & above, IM , (FluLaval or Fluzone) 05/13/2020,06/05/2019,06/28/2018,05/08 Seasonal Influenza, Quadriva lent Hd (Fluzone Hd) 05/25/2022 Seasonal Influenza, Quadriva lent Hd, 65+ Yrs 04/27/2021 Seasonal Influenza, Quadriva lent, No Preserve, IM 04/26/2016,06/27/2015 TDAP, Age 7 and older, IM (Adacel) 03/09/2010 Zoster Vaccine Recombinant (Shingrix) 07/01/2018 ,11/27/2017 documented as of this encounter Social History Tobacco Use Types Packs/Day Years Used Date Smoking Tobacco: Former Cigarettes 0.5 15 0 04/23/1995 - 04/23/2010 Smokeless Tobacco: Never Alcohol Use Standard Drinks/Week Comments No 0 (1 standard drink = 0.6 oz pur e alcohol) PHQ-2 Answer Date Recorded PHQ Adult Total Score 0 05/02/2022 Comments No Sex and Gender Information Value Date Recorded Sex Assigned at Not on file Legal Sex Female 4:56 AM EST Gender Identity Not on file Sexual Orientation Not on file Occupation Industry Job Start Date Job End Date Not on file Not on file Not on file Not on file Retired Not on file Not on file Not on file documented as of this encounter Plan of Treatment Upcoming Encounters Date Type Department Care Team (Late st Contact Info) Description 07/23/2024 10:00 AM EST [facility] [address] [place] [address] Nurse Anny [facility] Pr[facility] [address] [facility] [place] [address] Health Maintenance Due Date Last Done Comments Sigmoidoscopy 10/21/1995 Fecal Occult Blood Test 12/28/2001 12/28/2000, 07/12 Adult Wellness Visit 2016 DTap/Tdap Vaccines (2 - Td or Tdap) 03/09/2020 03/09/2010, 11/10/1984 *NEPHROLOGY REFERRAL DUE TO RESISTANT HTN 07/10/2024 COVID-19 Vaccine ( season) 2024 05/26/2024, 05/06/2023, 06/12/2022, Additional history exists Mammogram 09/30/2024 09/30/2023, 06/14, 06/23/2021, Additional history exists GFR 12/29/2024 07/01/2024, 06/12, 04/27/2024, Additional history exists Albumin/Creatinine Ratio 04/27/2025 024, 07/08/2023, 05/17/2022, Additional history exists Cologuard 06/08/2025 06/08/2022, 05/13, 06/04/2022, Additional history exists CKD HGB USE SMARTSET 53612 07/01/202507/15, 07/01/2024, 04/27/2024, Additional history exists CKD PHOS USE SMARTSET 46505 07/01/202506/13, 06/26/2023, 01/28/2023, Additional history exists DXA Scan 06/06/2028 06/06/2021, 08/0 01/2014, 12/14/2008 Lipid Panel 07/01/2029 07/01/2024, 05/0 04/2024, 01/28/2023, Additional history exists Colonoscopy 02/11/2033 02/11/2023, 0403/2011, 12/22/2008 Colorectal Cancer Screening 02/11/2033 Pneumococcal Vaccine: 65+ Years Completed 11/29/2016, 11/29/2015 Zoster Vaccines Completed 07/01/2018, 11/27/2017 Influenza Vaccine (FLU shot) Completed , 05/06/2023, 05/25/2022, Additional history exists HPV (Gardasil) Vaccine Aged Out No lo nger eligible based on patient's age to complete this topic Hepatitis B Vaccine Aged Out No longe r eligible based on patient's age to complete this topic MENINGOCOCCAL (MENACTRA/MENVEO) Aged Out No longer eligible based on patient's age to complete this topic documented as of this encounter Medical Devices Not on filedocumented as of this encounter Procedures Procedure Name Priority Date/Time Associated Diagnosis Comments CHEMISTRY-OUTSIDE Routine 07/15/2024 documented in this encounter Results * CHEMISTRY-OUTSIDE (07/15/2024) Not all results display below - see scan for full detail SCAN INCLUDES: CBC, PT INR OUTSIDE LAB (SEE SCANNED REPORT) CREATININE OUTSIDE L AB (SEE SCANNED REPORT) EGFR OUTSIDE LA B (SEE SCANNED REPORT) POTASSIUM OUTSIDE LA B (SEE SCANNED REPORT) GLUCOSE OUTSIDE LA B (SEE SCANNED REPORT) HOURS FASTING OUTSID E LAB (SEE SCANNED REPORT) TRIGLYCERIDES-OUT SIDE LAB OUTSIDE LAB (SEE SCANNED REPORT) CHOLESTEROL-OUTSI DE LAB OUTSIDE LAB (SEE SCANNED REPORT) HDL-OUTSIDE LAB OUTS SUZIE LAB (SEE SCANNED REPORT) CHOL/HDL RATIO-OUTSIDE LAB OUTSIDE LA B (SEE SCANNED REPORT) LDL (CALCULATED)-OUTS SUZIE LAB OUTSIDE LAB (SEE SCANNED REPORT) LDL (DIRECT MEASURE)-OUTSIDE LAB OUTSIDE LAB (SEE SCANNED REPORT) HEMOGLOBIN, A5D-AQESJHK LAB OUTSIDE LAB (SEE SCANNED REPORT) PHOSPHORUS-OUTSID E LAB OUTSIDE LAB (SEE SCANNED REPORT) PTH-OUTSIDE LAB OUTS SUZIE LAB (SEE SCANNED REPORT) MICROALBUMIN RATIO-OUTSIDE LAB OUTSIDE LA B (SEE SCANNED REPORT) PROTEIN, UA-OUTSIDE LAB OUTSIDE LAB (SEE SCANNED REPORT) HGB 13.6 12.0 - 16.0 G/DL OUTSIDE LAB (SEE SCANNED REPORT) 07/15/2024 us Davey Sheppard DO LABORATORY Final Res ult OUTSIDE LAB (SEE SCANNED REPORT) documented in this encounter Advance Directives Documents on File Type Date Recorded Patient Independent Producer Expl anation Advance Directives and Jillianin g Will 05/27/2017 LIVING WILL Power of Numerical Tool Programmer 05/27/2017 POWER OF A TTORNEY Care Teams Magazine Hand Relationship Specialty Start Date End Date Delmaper CRISOSTOMO, Jake Steward MD [address] [facility] [place] [address] PCP - General 02/04/08 documented as of this encounter
--- OUTSIDE RECORDS SUMMARY | 2024-08-14 14:49 | External Medical Summary | Summary of Care ---
Author Name Unknown Organization [facility] Address [address] [facility] [address] Phone [phone] Care Team Providers Care Instructor Weaving Name Role Phone Delma CRISOSTOMO MD, Jake Steward Primary Care Provider [phone] Reason for Visit * Reason Onset Date Comments Blood Pressure Check Blood Pressure Check 07/23/2024 Encounter Details Date Type Department Care Team (Late st Contact Info) Description 07/23/2024 10:00 AM EST Nurse Only Ancillary [facility] [place] [address] [place] [address] [place], Nurse [facility] Pr[facility] [address] [place] [address] Blood Pressure Check; Blood Pressure Check Allergies No known active allergiesdocumented as of this encounter (statuses as of 07/23/2024) Medications Ferrous Gluconate 240 (27 Fe) MG [...] as of this encounter (statuses as of 07/23/2024) Active Problems Problem Noted Date Diagnosed Date Microalbuminuria 06/24/2024 Bipolar I disorder, most recent episode mixed, m oderate 05/02/2022 Dyslipidemia 12/09/2019 Hypernatremia 06/13/2018 Benign hypertension with CKD (chronic kidney disease) stage III 05/08/2017 HTN, goal below 140/90 12/11/2013 documented as of this encounter (statuses as of 07/23/2024) Resolved Problems Problem Noted Date Diagnosed Date [...] as of this encounter (statuses as of 07/23/2024) Immunizations Name Administration Dates Next Due COVID-19 mRNA, LNP-s, No Pre serve, 2-Dose Series ([employer]) 05/10/2021,09/27/2020,09/02/2020 COVID-19, LNP-s, No Preserve , Klever-sucrose, Ages 12+ (Pfizer) 12/26/2021 COVID-19, MRNA-LNP, PF, 30 M CG/0.3 mL, 12 YRS AND ABOVE, IM (PFIZER-Comirnaty) 05/06/2023 Covid-19, Mrna, Lnp-s, Pf, B ivalent, 30 Mcg, IM, 12 yrs and above (Pfizer) 06/12/2022 PPD 02/01/2015,11/10/1992 Pneumococcal Conjugate Vacc, 13 [...] on file documented as of this encounter Last Filed Vital Signs Vital Sign Reading Time Taken Comments Blood Pressure 148/78 07/23/2024 10:36 AM EST Pulse 70 07/23/2024 10:36 AM EST Temperature - - Respiratory Rate - - Oxygen Saturation - - Inhaled Oxygen Concentration - - Weight - - Height - - Body Mass Index - - documented in this encounter Progress Notes * Ingrid Irizarry LPN - 07/23/2024 1:00 PM EST Gracie Paredes presented for blood pressure check per provider orders. The blood pressure was obtained using the left arm in the sitting position using a adult cuff. The results were charted in Vital Signs. BP Readings from Last 3 Encounters: 07/23/24 148/78 07/08/24 156/80 06/24/24 130/90 BP 148/78 | Pulse 70 Patient denies headache, pressure in head, dizziness, lightheadedness, chest discomfort, focal neurological symptoms, change in vision, nose bleeds. Did patient take medications today? Yes Patient was instructed to follow-up with a nurse for a repeat blood pressure check in 2 weeks. documented in this encounter Plan of Treatment Scheduled Orders Name Type Priority Associated Diagnoses Orde r Schedule BLOOD PRESSURE Procedures Routine HTN, goal below 140/90 Ordered: 07/23/2024 Health Maintenance Due Date Last Done Comments [...] 06/08/2022, 05/13, 06/04/2022, Additional history exists CKD PHOS USE SMARTSET 44909 07/01/202506/13, 06/26/2023, 01/28/2023, Additional history exists CKD HGB USE SMARTSET 89309 07/15/202507/15, 07/01/2024, 04/27/2024, Additional history exists DXA Scan 06/06/2028 06/06/2021, 08/0 01/2014, 12/14/2008 Lipid Panel 07/01/2029 07/01/2024, 050 04/2024, 01/28/2023, Additional history exists Colonoscopy 02/11/2033 02/11/2023, 11/10, 12/22/2008 Colorectal Cancer Screening 02/11/2033 Pneumococcal Vaccine: [...] Not on filedocumented as of this encounter Visit Diagnoses Diagnosis HTN, goal below 140/90- Primary Unspecified essential hypertension documented in this encounter Advance Directives Documents on File Type Date Recorded Patient Principal Account Clerk Expl anation Advance Directives and Livin g Will 05/27/2017 LIVING WILL Power of Roustabout Pusher 05/27/2017 POWER OF A TTORNEY Care Teams Instructor Weaving Relationship Specialty Start Date End Date Jake Nguyễn III, MD [address] [place] [address] PCP - General 02/04/08 documented as of this encounter"
--- OUTSIDE RECORDS SUMMARY | 2024-08-14 14:49 | External Medical Summary | Summary of Care ---
Author Name Unknown Organization [facility] Address [address] [place] [address] Phone [phone] Care Team Providers Care Director Of Land Name Role Phone Delma CRISOSTOMO MD, Jake Steward Primary Care Provider [phone] Encounter Details Date Type Department Care Team (Late st Contact Info) Description 07/15/2024 Result Scan Unspecified Department <No scans attached> Allergies No known active allergiesdocumented as of [...] mRNA, LNP-s, No Pre serve, 2-Dose Series ([employer]) 05/10/2021,09/27/2020,09/02/2020 COVID-19, LNP-s, No Preserve , Klever-sucrose, Ages 12+ (Pfizer) 12/26/2021 COVID-19, MRNA-LNP, PF, 30 M CG/0.3 mL, 12 YRS AND ABOVE, IM (PFIZER-Comirnat) 05/06/2023 Covid-19, Mrna, Lnp-s, Pf, B ivalent, 30 Mcg, IM, 12 yrs and above ([employer]) 06/12/2022 PPD 02/01/2015,11/10/1992 Pneumococcal Conjugate Vacc, [...] 07/23/2024 10:00 AM EST Nurse Only Ancillary [facility]ny [place] [address] [place] [address] Nurse Anny Fam [facility] [address] [place] [address] Health Maintenance Due Date Last Done Comments [...] Additional history exists CKD HGB USE SMARTSET 18346 07/01/202507/15, 07/01/2024, 04/27/2024, Additional history exists CKD PHOS USE SMARTSET 18588 07/01/202506/13, 06/26/2023, 01/28/2023, Additional history exists DXA [...] Procedure Name Priority Date/Time Associated Diagnosis Comments EKG SCANNED RESULT 07/15/2024 documented in this encounter Results * EKG SCANNED RESULT (07/15/2024) 07/15/2024 us No Physician Data Unknown EKG Final Result documented in this encounter Advance Directives Documents on File Type Date Recorded 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
--- OUTSIDE RECORDS SUMMARY | 2024-08-14 14:49 | External Medical Summary | Summary of Care ---
Author Name Unknown Organization [facility] Address [address] [facility] [place] [address] Phone [phone] Care Team Providers Care Chief Executive Officer Name Role Phone Delma CRISOSTOMO MD, Jake Steward Primary Care Provider [phone] Reason for Visit * Reason Onset Date Comments Test Results 07/27/2024 BP Check Encounter Details Date Type Department Care Team ([facility] st Contact Info) Description 07/27/2024 Telephone Family Practice [facility] [address] [place] [address] Jake Nguyễn III, MD [address] [place] [address] Test Results (BP Check) Allergies No known active allergiesdocumented as of this encounter (statuses as of 07/28/2024) Medications Ferrous Gluconate 240 (27 Fe) MG Oral Tablet Take 240 mg by mouth in the morning. Active Cyanocobalamin 500 MCG Oral Tablet Take 1 Tablet by mouth in the morning. Active Womens 50+ Multi Vitamin/Min Oral Tablet Take by mouth. Active Famotidine 20 MG Oral Tablet (Pepcid) TAKE 1 TABLET BY MOUTH IN THE MORNING AND BEFORE BEDTIME 180 Tablet 3 4 Active Apixaban 2.5 MG Oral Tablet (Eliquis) Take 1 Tablet by mouth in the morning and 1 Tablet before bedtime. 180 Tablet 1 4 Active busPIRone HCl 15 MG Oral Tablet (Buspar)Indica tions:Anxiety state TAKE 1 TABLET BY MOUTH THREE TIMES A DAY 270 Tablet 3 4 Active traMADol HCl 50 MG Oral Tablet (Ultram) Take 1 Tablet by mouth every 8 hours as needed for Pain, Moderate. 4 Active Rosuvastatin Calcium 10 MG Oral Tablet (Crestor)Indic ations:Dyslipi demia Take 1 Tablet by mouth in the morning. 90 Tablet 3 4 Active Carvedilol 6.25 MG Oral Tablet (Coreg) Take 1 Tablet by mouth in the morning and 1 Tablet before bedtime. with food. 180 Tablet 3 4 Active Lisinopril 20 MG Oral Tablet (Prinivil) Take 1 Tablet by mouth in the morning. 90 Tablet 3 4 Active Lisinopril 10 MG Oral Tablet (Prinivil) Take 1 Tablet by mouth in the morning. 30 Tablet 5 4 07/28/20 24 Discontinued documented as of this encounter (statuses as of 07/28/2024) Active Problems Problem Noted Date Diagnosed Date Microalbuminuria 06/24/2024 Bipolar I disorder, most recent episode mixed, m oderate 05/02/2022 Dyslipidemia 12/09/2019 Hypernatremia 06/13/2018 Benign hypertension with CKD (chronic kidney disease) stage III 05/08/2017 HTN, goal below 140/90 12/11/2013 documented as of this encounter (statuses as of 07/28/2024) Resolved Problems Problem Noted Date Diagnosed Date [...] as of this encounter (statuses as of 07/28/2024) Immunizations Name Administration Dates Next Due COVID-19 mRNA, LNP-s, No Pre serve, 2-Dose Series ([employer]) 05/10/2021,09/27/2020,09/02/2020 COVID-19, LNP-s, No Preserve , Klever-sucrose, Ages 12+ (Pfizer) 12/26/2021 COVID-19, MRNA-LNP, PF, 30 M CG/0.3 mL, 12 YRS AND ABOVE, IM ([employer]-Comirnaty) 05/06/2023 Covid-19, Mrna, Lnp-s, Pf, B ivalent, 30 Mcg, IM, 12 yrs and above ([employer]) 06/12/2022 PPD 02/01/2015,11/10/1992 Pneumococcal Conjugate Vacc, 13 [...] on file documented as of this encounter Miscellaneous Notes * Telephone Encounter - Jake Nguyễn III, MD - 07/28/2024 7:49 AM EST Increase lisinopril to 20 mg daily may take 2 of the 10s new prescription sent to pharmacy check blood pressure nurse 2 weeks and rechecked kidney function blood test * Telephone Encounter - Yasmeen Gonzalez OSA - 07/27/2024 11:27 AM EST Who is Requesting Test Results: Patient Gracie Paredes Primary Care Provider : Jake Nguyễn III, MD Tests Results Requested : Blood Pressure Check Date of Test : 07/22/2024 Location of Test: [facility] Ordering Provider: Jake Nguyễn III, MD Would like Results and if Medication needs to be changed or what needs to happen to the readings ofthe Blood Pressure Checks. Please call Gracie @ [phone] 24-48 Hours Patient has been made aware that the turnaround time for test results are typically as follows: Laboratory results = within 2-3 days ([facility]), 3-5 days (Non-[facility], ie. [facility]) Urine Cultures = within 2-3 days depending on growth within the culture Pathology results (biopsy results/PAP) = 1-2 weeks Radiology results = about 1 week Cologuard results = within 2 weeks from the shipment date COVID testing = about 24 hours documented in this encounter Plan of Treatment Scheduled Orders Name Type Priority Associated Diagnoses Orde r Schedule BASIC METABOLIC PANEL Lab Routine HTN, goal below 140/90 Expected: 07/28/2024 (Approximate), Expires: 07/28/2025 Health Maintenance Due Date Last Done Comments [...] Additional history exists CKD PHOS USE SMARTSET 50726 07/01/202506/13, 06/26/2023, 01/28/2023, Additional history exists CKD HGB USE SMARTSET 65692 07/15/202507/15, 07/01/2024, 04/27/2024, Additional history exists DXA [...] Documents on File Type Date Recorded 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
--- OUTSIDE RECORDS SUMMARY | 2024-08-14 14:49 | External Medical Summary | Summary of Care ---
Author Name Unknown Organization [facility] Address [address] [facility] [address] Phone [phone] Care Team Providers Care Pace Analyst Name Role Phone Delma CRISOSTOMO MD, Jake Steward Primary Care Provider [phone] Reason for Visit * Reason Onset Date Comments Blood Pressure Check Blood Pressure Check 08/10/2024 Encounter Details Date Type Department Care Team (Late st Contact Info) Description 08/10/2024 2:00 PM EST Nurse Only Ancillary [facility] [place] [address] [place] [address] Park, Nurse [facility] [address] [place] [address] Blood Pressure Check; Blood Pressure Check Allergies No known active allergiesdocumented as of this encounter (statuses as of 08/10/2024) Medications Ferrous Gluconate 240 (27 Fe) MG [...] food. 180 Tablet 3 06/24/2024 Active Lisinopril 20 MG Oral Tablet (Prinivil) Take 1 Tablet by mouth in the morning. 90 Tablet 3 07/28/2024 Active documented as of this encounter (statuses as of 08/10/2024) Active Problems Problem Noted Date Diagnosed Date Microalbuminuria 06/24/2024 Bipolar I disorder, most recent episode mixed, m oderate 05/02/2022 Dyslipidemia 12/09/2019 Hypernatremia 06/13/2018 Benign hypertension with CKD (chronic kidney disease) stage III 05/08/2017 HTN, goal below 140/90 12/11/2013 documented as of this encounter (statuses as of 08/10/2024) Resolved Problems Problem Noted Date Diagnosed Date [...] as of this encounter (statuses as of 08/10/2024) Immunizations Name Administration Dates Next Due COVID-19 mRNA, LNP-s, No Pre serve, 2-Dose Series ([employer]) 05/10/2021,09/27/2020,09/02/2020 COVID-19, LNP-s, No Preserve , Klever-sucrose, [...] Sign Reading Time Taken Comments Blood Pressure 140/90 08/10/2024 2:40 PM EST Pulse 68 08/10/2024 2:13 PM EST Temperature - - Respiratory Rate - - Oxygen Saturation - - Inhaled Oxygen Concentration - - Weight - - Height - - Body Mass Index - - documented in this encounter Progress Notes * Luz Marina Chavarria NA - 08/10/2024 2:44 PM EST Gracie Paredes presented for blood pressure check per provider orders. The blood pressure was obtained using the left arm in the sitting position using a adult cuff. The results were charted in Vital Signs. BP Readings from Last 3 Encounters: 08/10/24 140/90 07/23/24 148/78 07/08/24 156/80 BP 140/90 (BP Site: Left Arm, BP Position: Sitting, BP Cuff Size: Regular) | Pulse 68 Patient denies headache, pressure in head, dizziness, lightheadedness, chest discomfort, focal neurological symptoms, change in vision, nose bleeds. Did patient take medications today? Yes Patient was instructed to follow-up with their primary care provider. documented in this encounter Plan of Treatment Scheduled Orders Name Type Priority Associated Diagnoses Orde r Schedule BLOOD PRESSURE Procedures Routine HTN, goal below 140/90 Ordered: 08/10/2024 Health Maintenance Due Date Last Done Comments [...] Additional history exists CKD PHOS USE SMARTSET 46083 07/01/202506/13, 06/26/2023, 01/28/2023, Additional history exists CKD HGB USE SMARTSET 60170 07/15/202507/15, 07/01/2024, 04/27/2024, Additional history exists DXA Scan 06/06/2028 06/06/2021, 08/0 01/2014, 12/14/2008 Lipid Panel 07/01/2029 07/01/2024, 05/0 04/2024, 01/28/2023, Additional history exists Colonoscopy 02/11/2033 02/11/2023, 11/10, 12/22/2008 Colorectal Cancer Screening 02/11/2033 Pneumococcal Vaccine: 50+ Years Completed 11/29/2016, 11/29/2015 Zoster Vaccines Completed [...] Documents on File Type Date Recorded 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
--- NOTE | 2024-08-14 15:19 | Anesthesiology Progress Note ---
Date of Service August 14, 2024 Anesthesia Post Procedure Vital Signs Vital Signs: Temp Pulse Resp BP Pulse Ox O2 Del Method O2 Flow Rate 08/14/24 15:15 84 15 151/79 H 98 Nasal Cannula 2 08/14/24 15:00 82 12 149/78 H 100 Nasal Cannula 2 08/14/24 14:55 79 15 160/81 H 99 Nasal Cannula 2 08/14/24 14:45 77 13 159/77 H 99 Nasal Cannula 2 08/14/24 14:35 76 13 189/76 H 97 Nasal Cannula 2 08/14/24 14:25 36.4 C L 73 14 170/83 H 99 Nasal Cannula 2 08/14/24 14:15 70 16 161/82 H 93 Nasal Cannula 2 08/14/24 14:05 74 13 170/89 H 97 Nasal Cannula 2 08/14/24 13:55 76 15 165/93 H 97 Oxymask 3 08/14/24 13:48 36 C L 80 15 147/89 H 98 Oxymask 6 08/14/24 10:46 36.9 C 67 20 178/92 H 95 Room Air Pain Intensity Left Knee: Pain Intensity: 3 Transfer of Care Handoff Completed per policy Notes Mental Status: alert / awake / arousable and participated in evaluation Patient Amnestic to Procedure: Yes Nausea / Vomiting: adequately controlled Pain: adequately controlled Airway Patency, RR, SpO2: stable & adequate BP & HR: stable & adequate Hydration State: stable & adequate Anesthetic Complications: no major complications apparent and Pt Satisfied with anesthetic care
[2024-08-14] MEDS ORDERED: bisacodyL 10 MG SUPP PR PRN (15:46)
[2024-08-14] MEDS ORDERED: METOCLOPRAMIDE HCL INJ 5 MG/ML 2 ML VIAL IV PRN (15:46)
[2024-08-14] MEDS ORDERED: MAGNESIUM HYDROXIDE SUSP 30 ML UDC PO PRN (15:46)
[2024-08-14] MEDS ORDERED: traMADol HCL 50 MG TABLET PO PRN (15:46)
[2024-08-14] MEDS ORDERED: NALOXONE HCL 0.4 MG/1 ML VIAL/CARP IV PRN (15:46)
[2024-08-14] MEDS ORDERED: HYDROmorphone INJ 0.5 MG/0.5 ML SYR IV PRN (15:46)
[2024-08-14] MEDS: busPIRone 15 MG TAB PO SCH (17:50)
[2024-08-14] MEDS: ceFAZolin 1000MG 1,000 MG/7.5 ML SYR IV SCH (21:15)
[2024-08-14] MEDS: DOCUSATE SODIUM 100 MG CAP PO SCH (21:15)
[2024-08-14] MEDS: carvediloL 6.25 MG TAB PO SCH (21:15)
[2024-08-14] MEDS: SENNA 8.6 MG TAB PO SCH (21:15)
[2024-08-14] MEDS: PNEUMOCOCCAL VACCINE (PCV20) 20-VAL CONJ-DIP CRM/PF 0.5 ML SYR IM ONE (21:15)
[2024-08-14 22:59] VITALS: RESP 18; TEMP 97.7
[2024-08-15] MEDS: hydrALAZINE HCL 20 MG/ML VIAL IV STA (00:04)
[2024-08-15] MEDS: carvediloL 3.125 MG TAB PO ONE (01:55)
--- NOTE | 2024-08-15 04:43 | Consultation ---
Date of Consultation August 15, 2024 Assessment & Plan (1) Status post left knee replacement: 73-year-old female with past medical history significant for hypernatremia, hyperlipidemia, CKD stage III, hypertension, microalbuminuria, bipolar 1 disorder is status post left total knee arthroplasty and postprocedure patient was having elevated blood pressure and tachycardia. Currently patient resting comfortably. Denies any chest pain. Denies any palpitations. No headache, no runny nose or sore throat no cough. No nausea. No feeling of hot or cold. No abdominal pain. Moving her extremities okay. Patient says she did not take her lisinopril prior to surgery. Status post left knee replacement Management as per orthopedics Will follow labs Hypertension Continue home lisinopril and Coreg If still elevated will adjust Coreg and monitor Tachycardia EKG shows sinus tachycardia 107 Will monitor after Coreg Prolonged QTc QTc 517 Ordered IV magnesium 1 g Avoid QT prolonging drugs Follow repeat EKG Hyperlipidemia On statin GERD On famotidine CKD stage III Baseline creatinine 1.2-1.3 Will follow labs DVT prophylaxis and disposition As per orthopedics History of Present Illness Reason for Consultation: Hypertension and tachycardia Attending Physician: Davey Sheppard DO History of Present Illness 73-year-old female with past medical history significant for hypernatremia, hyperlipidemia, CKD stage III, hypertension, microalbuminuria, bipolar 1 disorder is status post left total knee arthroplasty and postprocedure patient was having elevated blood pressure and tachycardia. Currently patient resting comfortably. Denies any chest pain. Denies any palpitations. No headache, no runny nose or sore throat no cough. No nausea. No feeling of hot or cold. No abdominal pain. Moving her extremities okay. Patient says she did not take her lisinopril prior to surgery. Past medical history. As mentioned above. Past social history. Breast biopsy. Colonoscopy with biopsy. EGD. Partial hysterectomy. Tonsillectomy. Fractured femur with bone graft and pin age 16. Social history. . Quit smoking 2009. Smoked 0.5 pack a day for 15 years. No alcohol use. No drug use. Family history. Father had brain aneurysm. Mother had ovarian cancer. Depression. Parkinson's. Obesity. Sister had pancreatic cancer. Sister has diabetes. Hypertension. Allergies Allergy/AdvReac Type Severity Reaction Status Date / Time No Known Allergies Allergy Verified 08/14/24 10:43 Home Medications Medication Instructions Recorded Confirmed Type buspirone 15 mg tablet 15 mg PO TID 10/11/22 08/14/24 History carvedilol 6.25 mg tablet 6.25 mg PO BID 10/11/22 08/14/24 History rosuvastatin 10 mg tablet 10 mg PO QAM 10/11/22 08/14/24 History famotidine 20 mg tablet 20 mg PO BID 02/08/23 08/14/24 History tramadol 50 mg tablet 50 mg PO Q8H PRN pain #60 tabs 06/22/24 08/14/24 Rx apixaban 2.5 mg tablet (Eliquis) 2.5 mg PO BID 07/06/24 08/14/24 History cyanocobalamin (vitamin B-12) 1,000 mcg PO QAM 07/06/24 08/14/24 History 1,000 mcg tablet ferrous sulfate 325 mg (65 mg 325 mg PO QAM 07/06/24 08/14/24 History iron) tablet (iron) multivitamin 1 tab PO QAM 07/06/24 08/14/24 History lisinopril 10 mg tablet 20 mg PO DAILY 07/15/24 08/14/24 History cefadroxil 500 mg capsule 500 mg PO BID 10 days #20 caps 08/14/24 Rx oxycodone 5 mg tablet 5 mg PO Q6H PRN pain #30 tabs 08/14/24 Rx Patient History Medical History Left knee DJD CKD (chronic kidney disease) stage 3, GFR 30-59 ml/min Bipolar 1 disorder Per records Prediabetes Per records Hx of gout Arthritis History of kidney stones No surgery required Anemia Anxiety Hypertension History of pulmonary embolism RLE DVT > PE (10/2022) Taking Eliquis History of DVT (deep vein thrombosis) RLE DVT > PE (10/2022) Taking Eliquis Dyslipidemia Surgical History History of esophagogastroduodenoscopy (EGD) History of colonoscopy [place] teeth removed H/O bone graft Femur fx with bone graft and pin (age 15) History of tonsillectomy History of partial hysterectomy H/O breast biopsy "benign" (1988) Family History Other Hypertension No family history of adverse response to anesthesia Ovarian cancer Pancreatic cancer Social History Smoking Status: Former smoker Tobacco Type: Cigarettes Smoking End Date: 2007; Second Hand Exposure: No; Do You Dip or Chew Tobacco: No; Tobacco Cessation Education Requested by Patient: No Hx Alcohol Use: No Hx Substance Use: No Preferred Language: Botswanan Communication Ability: Effective Visual Impairment: No Limitations Hearing Ability: Normal Merchandise Flow Team Leader Required: No Beliefs That Will Affect Care: None Current Living Situation: Spouse current occupational status: retired Other Information That Helps Us Care for You: No Feels Safe at Home: Yes Safety Concerns: Feels Safe At This Time Diet: regular during the past year weight has: remained stable Dental Care, Regularly: Yes Seatbelt Use: always Assistive Devices: Glasses and Walker Review of Systems Review of Systems: All systems reviewed & are unremarkable except as noted in HPI & below Physical Exam Physical Exam: General- Not in acute distress Head- atraumatic Eyes- PERRL. ENT- oropharynx clear Neck- supple, no JVD. Lungs- clear to auscultation no wheezing or crackles. Heart- regular rhythm;tachycardia present, no murmur, no gallop. Abdomen- normal bowel sounds, soft, nontender, no distension. Extremities- s/p left TKA, dressing intact, Neuro- alert, oriented; PERRL, no facial palsy; no dysarthria; moves extremiti es Results & Data Vital Signs (Past 12 Hours) Vital Signs Temp Pulse Resp BP BP Pulse Ox O2 Del Method 08/15/24 03:17 36.5 C 111 H 18 162/84 H 95 Room Air 08/15/24 01:14 110 H 147/78 H 160/83 H 08/15/24 00:43 103 H 163/72 H 171/76 H 08/15/24 00:35 105 H 178/79 H 187/101 H 08/14/24 23:22 105 H 194/85 H 184/92 H 93 Room Air 08/14/24 22:58 36.5 C 112 H 18 205/108 H 94 Room Air 08/14/24 21:15 Room Air 08/14/24 20:40 36.8 C 101 H 14 143/81 H 94 Room Air 08/14/24 17:44 36.6 C 113 H 16 169/109 H 157/91 H 95 Room Air 08/14/24 16:50 36.3 C L 97 H 18 174/84 H 95 Room Air Diagnostic Findings Impressions Knee X-Ray 08/14/24 13:51 XR knee LT 1 or 2V routine CLINICAL HISTORY: Postoperative evaluation. COMPARISON: Left knee radiographs April 29, 2024. FINDINGS: Alignment of the total left knee arthroplasty is anatomic. There is no periprosthetic fracture or lucency. There are skin apolonia. No unexpected radiopaque foreign bodies are present. Note is again made of calcific bodies likely within a popliteal cyst, unchanged. A healed mid diaphyseal left femoral fracture is partially imaged. IMPRESSION: Expected findings following total left knee arthroplasty. ACT 112: Negative or not required by law. Electronically signed by: Rickey Santillan M.D. 08/14/2024 2:35 PM ECG Additional Comments: ECG sinus tachycardia rate of 107. QTc 517.
[2024-08-15] MEDS ORDERED: PROMETHAZINE 6.25 MG/50.25 ML BAG IV PRN (04:52)
[2024-08-15] MEDS: MAGNESIUM SULFATE / D5W 1 GM/100 ML BAG IV ONE (04:53)
[2024-08-15] MEDS: APIXABAN 2.5 MG TAB PO SCH (04:54)
[2024-08-15 07:06] VITALS: O2SAT 94
[2024-08-15 07:13] LABS: Basophils # (auto) 0.03 K/uL (0.00-0.20); Basophils % (auto) 0.2 %; Hematocrit (blood only) 36.3 % (37.0-47.0); Hemoglobin 11.9 g/dl (12.0-16.0); Immature Granulocytes % (auto) 0.7 %; Lymphocytes # (auto) 1.25 K/uL (1.20-3.40); Lymphocytes % (auto) 8.8 %; Mean Corpuscular Hemoglobin 29.5 pg (25.0-34.0); Mean Corpuscular Hgb Conc 32.8 g/dL (32.0-36.0); Mean Corpuscular Volume 90.1 fL (80.0-100.0); Mean Platelet Volume 9.4 fL (9.4-12.4); Monocytes # (auto) 1.01 K/uL (0.11-0.59); Monocytes % (auto) 7.1 %; Neutrophils # (auto) 11.89 K/uL (1.40-6.50); Neutrophils % (auto) 83.2 %; Platelet Count 253 K/uL (130-400); RDW Coefficient of Variation 13.2 % (11.5-14.5); RDW Standard Deviation 43.9 fL (36.4-46.3); Red Blood Count 4.03 M/uL (4.20-5.40); White Blood Count 14.28 K/ul (4.8-10.8)
[2024-08-15 07:26] LABS: BUN Creatinine Ratio 13.4 (10-20); Creatinine Clr Calc Pharmacy 45.4 ml/min; Magnesium 2.2 mg/dl (1.7-2.4); Potassium 3.5 mmol/L (3.5-5.1)
--- NOTE | 2024-08-15 08:20 | Orthopedic Progress Note ---
Date of Service August 15, 2024 Assessment & Plan (1) Status post left knee replacement: Overall she is doing very well. She is not having much pain in the left knee. She will be seen by physical therapy today for ambulation and range of motion exercises. The nursing staff can change her dressing after physical therapy. She is on aspirin for DVT prophylaxis. She can be discharged to home later today. She will follow-up orthopedics in 2 weeks. Subjective Gracie was seen and examined at bedside this morning. Overall she is doing very well. She is not having much pain in the left knee. She has been up and ambulating to the bathroom. She has no complaints.. Review of Systems All systems reviewed & are unremarkable except as noted in HPI & below. Physical Exam On physical exam of the left knee, the dressing is clean and dry. She is sitting at bedside with her knee flexed at 90 degrees. She is neurovascular intact.. Results & Data Results & Data Laboratory Results . Diagnostic Findings Postoperative x-rays of the left knee show the prosthesis to be in anatomic alignment without any evidence of fracture, dislocation, or loosening.. PG Care Time/CCT Total # of Minutes Spent Total Time Spent with Patient: Total time spent is greater than 50% in coordination of care (as documented) at patient's floor/unit and/or counseling patient: Coding Level of Care Code 73169 Post Operative Follow-Up Diagnoses Status post left knee replacement Z96.652
--- NOTE | 2024-08-15 08:21 | Discharge Summary ---
Date of Service August 15, 2024 Admission HPI (Per Admitting) Gracie is a pleasant 73-year-old female who has been dealing with chronic increasing left knee pain. She has had mild on and off knee pain for years, but it became much more severe about 4 months ago[address] She saw Dr. Kim and had an injection in her knee. The injection did help some. Unfortunately, she is still dealing with some lingering knee pain. She is becoming more concerned with it. X-rays and clinical examination have been diagnostic for advanced osteoarthritis of the left knee. After failed conservative treatment, she has elected to proceed with a left total knee arthroplasty. Admission Exam (Per Admitting) On physical exam the left knee, she has a varus deformity. Tenderness palpation of the distal medial femoral condyle and over the medial joint line.. Principal Diagnosis Same as "Discharge Diagnosis" noted below under Discharge Instructions. Discharge Exam On physical exam of the left knee, the dressing is clean and dry. She is sitting at bedside with her knee flexed at 90 degrees. She is neurovascular intact.. Discharge Data Consultations 08/15/24 01:24 Consult Hospitalist Routine Procedures Performed Operation Date: 08/14/24 12:00 Actual Procedures p Left Total Knee Arthroplasty(Left) - Davey Sheppard DO Ordered Studies 08/14/24 05:00 US - OR guided needle placemen Routine Hospital Course (1) Status post left knee replacement: On August 14, 2024 Gracie arrived at [facility] and underwent a left knee replacement without complication. She had a spinal anesthetic. Postoperatively she was started on Eliquis for DVT prophylaxis and transferred to the general orthopedic floors. Her hospital course was uneventful. On postop day #1, her vital signs were stable and her pain was well-controlled. She was able to participate well with physical therapy doing ambulation and range of motion exercises. She was then discharged to home. She will follow-up with orthopedics in 2 weeks. PG Care Time/CCT Total # of Minutes Spent Total Time Spent with Patient: Total time spent is greater than 50% in coordination of care (as documented) at patient's floor/unit and/or counseling patient: Discharge Plan Discharge Items Patient Disposition: Home - Self-Care Reason For Visit: Left Knee Arthritis Discharge Diagnosis: Status post left knee replacement Activity: Per Instructions section Non-emergency contact: Surgeon Call non-emergency contact if: your wound has increased redness and your wound has increased drainage Follow-up/Referrals: Jake Nguyễn MD [Primary Care Provider] - Diet: Regular Addtl Attending Provider Instructions: Activity and Therapy Recommendations: * If you are using [facility] then therapy will be provided at your home until they feel you have accomplished all of your goals. * If you are using [facility] then Physical Therapy will be provided until they feel you are ready to start Outpatient Physical Therapy. * If you are not using home therapy then Outpatient Physical Therapy should start about 3-5 days from your day of surgery. Therapy will last about 6-10 weeks * It is important not to put a pillow under your knee when you are relaxing or sleeping. It is just as important to make sure you are getting your knee perfectly straight as it is to regain your knee bend. * You were shown a series of exercises in the hospital. Do these exercises three times each day including the exercises you were shown in physical therapy. * Get up and walk several times each day. For the first four weeks, try not to stand or walk for more than one hour at a time. If you do stand or walk for more than one hour, you will not hurt anything, but your leg will likely swell. * As you feel comfortable, you may change from the walker or crutches to a cane and then to independent walking. Medications: * Narcotic You will likely be sent home from the hospital with a prescription for the narcotic pain medication that worked best throughout your stay. * Cefadroxil -take the antibiotic twice a day for 10 days to help prevent infection. * Continue your Eliquis as prescribed. * Other medications may be prescribed for specific circumstances. If you have any questions, please call the office at . * Resume previous home medications unless otherwise instructed TEDs/Elastic Stockings: The white elastic stockings help limit swelling and prevent blood clots from forming in your legs.~ The more you wear them, the more they work. Wear them for six weeks. Dressing Care: The dressing can be changed after physical therapy on postop day #1. Daily dry dressing changes for a few days, especially if the incision is still draining some. If the incision is not draining then you may leave the apolonia open to air. If there is a little bit of drainage or if the apolonia are getting stuck on your clothing then cover the incision with a dry dressing. The apolonia will be removed at your 2 week follow-up appointment. Showering: You may shower 5 days from the day of surgery as long as the incision is no longer draining. You may shower with the apolonia exposed. Let soapy water run over the apolonia and pat them dry. Do not scrub or soak the incision. Diet: You may resume your previous diet. Things To Watch For: * Drainage from the incision site that occurs more than one week after your surgery. * Increased redness at the incision site. * Fever above 102 degrees Fahrenheit. * Unusual chest pain or shortness of breath. * Call [facility] at with any of the above problems Follow-Up Visit: Follow-up with Dr. Sheppard's office 2-3 weeks after your day of surgery. We will remove your apolonia and answer any questions. If you have any additional questions or concerns, Dr Sheppard is usually in the office at the same time and will be available An appointment was probably scheduled when you signed-up for surgery in the office. If you have any questions call Office Instructions: More detailed instructions as well as Frequently Asked Questions were provided in a folder by our office when you signed-up for surgery. Please review these instructions when you get home. If you have any further questions or concerns, please feel free to call the office at [phone] Pending Studies at Discharge: No Stand-Alone Forms: My [facility], Smoking Cessation Medications and DC Order Prescriptions: New cefadroxil 500 mg capsule 500 mg PO BID 10 Days Qty: 20 0RF oxycodone 5 mg tablet 5 mg PO Q6H PRN (Reason: pain) Qty: 30 0RF Continued tramadol 50 mg tablet 50 mg PO Q8H PRN (Reason: pain) Qty: 60 0RF famotidine 20 mg tablet 20 mg PO BID carvedilol 6.25 mg tablet 6.25 mg PO BID buspirone 15 mg tablet 15 mg PO TID rosuvastatin 10 mg tablet 10 mg PO QAM multivitamin Tablet 1 tab PO QAM cyanocobalamin (vitamin B-12) 1,000 mcg Tablet 1,000 mcg PO QAM ferrous sulfate [iron] 325 mg (65 mg iron) Tablet 325 mg PO QAM Eliquis 2.5 mg Tablet 2.5 mg PO BID lisinopril 10 mg Tablet 20 mg PO DAILY Discharge Orders: Discharge Order (Routine); Ordered 08/15/24 Ordered By: Davey Sheppard Admission Data Admit Date/Time: 08/14/24 13:51 Attending Provider: Davey Sheppard Admit Provider: Davey Sheppard Primary Care Provider: Jake Nguyễn Other Providers: Marcel Davis
[2024-08-15] MEDS: oxyCODONE HCL IR 5 MG TAB (IMMEDIATE RELEASE) PO PRN (08:23)
[2024-08-15] MEDS: lisinopril 20 MG TAB PO SCH (08:24)
[2024-08-15] MEDS: CYANOCOBALAMIN (B-12) 500 MCG TABLET PO SCH (08:24)
[2024-08-15] MEDS: ROSUVASTATIN CALCIUM 10 MG TAB PO SCH (08:25)
[2024-08-15] MEDS: MULTIVITAMIN TAB PO SCH (08:25)
[2024-08-15] MEDS: FERROUS SULFATE 325 MG TAB PO SCH (08:25)
[2024-08-15] MEDS: POTASSIUM CHLORIDE CRTAB 20 MEQ TABCR PO STA (08:33)
[2024-08-15] MEDS ORDERED: NON-FORMULARY MEDICATION (Multivitamin Tablet) PO SCH (09:00)
[2024-08-15 09:40] VITALS: BP 160/83; PULSE 86
--- NOTE | 2024-08-17 09:07 | Electrocardiogram Report ---
Test Reason : Blood Pressure : */* mmHG Vent. Rate : 107 BPM Atrial Rate : 107 BPM P-R Int : 162 ms QRS Dur : 88 ms QT Int : 388 ms P-R-T Axes : 77 38 67 degrees QTcB Int : 517 ms Sinus tachycardia Otherwise normal ECG When compared with ECG of 15-Jul-2024 12:13, Vent. rate has increased by 39 bpm T wave amplitude has increased in Anterolateral leads QT has lengthened Confirmed by Gorod Gandhi ([id number]) on 08/17/2024 9:07:13 AM Referred By: Davey Sheppard Confirmed By: Gordo Gandhi
== END 2024-08-15 10:53 | disposition home or self-care (01) ==
LOC: ASU 10:17 → 3E 10:17